=== PATIENT | male | born 1950 | race Caucasian/White ===

== ENCOUNTER → 2017-02-12 | Outpatient (CLI) | payer MEDICARE ==
--- NOTE | 2017-02-12 08:50 | US ---
EXAMINATION TYPE: US duplex aorta DATE OF EXAM: 02/12/2017 8:29 AM COMPARISON: NONE CLINICAL HISTORY: Z13.9 Screening for Disorder. Medicare AAA screening EXAM MEASUREMENTS: Abdominal Aorta: Proximal: 2.4cm by 2.0 cm transversely Mid: 1.8cm by 2.0 cm transversely Distal: 1.4cm by 1.9 cm transversely Bifurcation: Right 0.9cm Left 1.3cm Calcified vessel, especially distally and iliacs Aorta is visualized through the iliac bifurcation. Calcified plaque is seen along its course. No aneu rysmal change is evident. IMPRESSION: No greater than 3 cm abdominal aortic aneurysm identified.
== END | disposition home or self-care (01) ==
LOC: RADUSWWP 08:05
PROVIDERS: ATTEND Family Medicine
DX: I71.4 Abdominal aortic aneurysm, without rupture (principal)
CPT/HCPCS: 93979

== ENCOUNTER → 2017-03-18 | Outpatient (CLI) | payer MEDICARE ==
[2017-03-18 11:16] LABS: Bilirubin, Delta 0.3 mg/dL (0.0-0.2); Total Bilirubin 0.4 mg/dL (0.2-1.3); Total Protein 7.5 g/dL (6.3-8.2)
== END | disposition home or self-care (01) ==
LOC: LABWHC1 10:02
PROVIDERS: ATTEND Internal Medicine Cardiovascular Disease
DX: E78.2 Mixed hyperlipidemia (principal)
CPT/HCPCS: 36415; 80061; 80076

== ENCOUNTER → 2017-12-06 | Outpatient (CLI) | payer MEDICARE ==
[2017-12-06 11:29] LABS: HCT 47.4 % (39.0-53.0); MCH 28.4 pg (25.0-35.0); MCHC 31.5 g/dL (31.0-37.0); MCV 89.9 fL (80.0-100.0); Platelet Count 192 k/uL (150-450); RBC 5.27 m/uL (4.30-5.90); RDW 13.4 % (11.5-15.5); WBC 8.6 k/uL (3.8-10.6)
[2017-12-06 11:42] LABS: Anion Gap 12 mmol/L; Blood Urea Nitrogen 18 mg/dL (9-20); Calcium 10.3 mg/dL (8.4-10.2); Carbon Dioxide 33 mmol/L (22-30); Chloride 97 mmol/L (98-107); Glucose 131 mg/dL (74-99); Sodium 142 mmol/L (137-145)
[2017-12-06 12:03] LABS: Partial Thromboplastin Time 23.7 sec (22.0-30.0); Prothrombin Time 10.3 sec (9.0-12.0)
== END | disposition home or self-care (01) ==
LOC: LABWHC1 10:59
PROVIDERS: ATTEND Internal Medicine Cardiovascular Disease
DX: Z01.812 Encounter for preprocedural laboratory examination (principal); I25.5 Ischemic cardiomyopathy; I25.10 Atherosclerotic heart disease of native coronary artery without angina pectoris
CPT/HCPCS: 36415; 80048; 85027; 85610; 85730

== ENCOUNTER → 2018-03-13 | Outpatient (CLI) | payer MEDICARE ==
[2018-03-13 10:20] LABS: Basophils # (A) 0.1 k/uL (0-0.2); Basophils % (A) 1 %; Eosinophils # (A) 0.1 k/uL (0-0.7); Eosinophils % (A) 1 %; HGB 14.6 gm/dL (13.0-17.5); Lymphocytes # (A) 3.1 k/uL (1.0-4.8); Lymphocytes % (A) 33 %; MCH 29.8 pg (25.0-35.0); MCV 87.8 fL (80.0-100.0); Mean Platelet Volume 6.8; Monocytes # (A) 0.6 k/uL (0-1.0); Monocytes % (A) 7 %; Neutrophils # (A) 5.4 k/uL (1.3-7.7); Neutrophils % (A) 56 %; Platelet Count 175 k/uL (150-450); RDW 14.5 % (11.5-15.5); WBC 9.6 k/uL (3.8-10.6)
[2018-03-13 10:50] LABS: Albumin 4.4 g/dL (3.5-5.0); Calcium 9.6 mg/dL (8.4-10.2); Potassium 5.1 mmol/L (3.5-5.1); Total Bilirubin 0.3 mg/dL (0.2-1.3); Total Protein 6.9 g/dL (6.3-8.2)
== END | disposition home or self-care (01) ==
LOC: LABWHC1 09:26
PROVIDERS: ATTEND Internal Medicine Cardiovascular Disease
DX: E78.2 Mixed hyperlipidemia (principal); I25.10 Atherosclerotic heart disease of native coronary artery without angina pectoris; I25.5 Ischemic cardiomyopathy
CPT/HCPCS: 36415; 80053; 80061; 83880; 84443; 85025

== ENCOUNTER → 2018-04-01 | Outpatient (CLI) | payer MEDICARE ==
[2018-04-01 12:23] LABS: HCT 45.8 % (39.0-53.0); MCH 29.6 pg (25.0-35.0); MCHC 32.7 g/dL (31.0-37.0); MCV 90.6 fL (80.0-100.0); Mean Platelet Volume 7.1; Platelet Count 209 k/uL (150-450); RBC 5.06 m/uL (4.30-5.90); RDW 14.6 % (11.5-15.5); WBC 9.2 k/uL (3.8-10.6)
[2018-04-01 12:26] LABS: INR 1.1 (<1.2); Prothrombin Time 10.7 sec (9.0-12.0)
[2018-04-01 12:37] LABS: Anion Gap 15 mmol/L; Blood Urea Nitrogen 16 mg/dL (9-20); Calcium 9.7 mg/dL (8.4-10.2); Carbon Dioxide 29 mmol/L (22-30); Chloride 97 mmol/L (98-107); Glucose 109 mg/dL (74-99); Potassium 4.8 mmol/L (3.5-5.1); Sodium 141 mmol/L (137-145)
== END | disposition home or self-care (01) ==
LOC: LABWHC1 11:42
PROVIDERS: ATTEND Nurse Practitioner Acute Care
DX: I42.0 Dilated cardiomyopathy (principal)
CPT/HCPCS: 36415; 80048; 85027; 85610

== ENCOUNTER → 2018-04-10 | Outpatient (CLI) | payer MEDICARE ==
[2018-04-10 13:36] LABS: T4, Free (Free Thyroxine) 1.08 ng/dL (0.78-2.19)
== END | disposition home or self-care (01) ==
LOC: LABWHC1 11:50
PROVIDERS: ATTEND Family Medicine
DX: E03.9 Hypothyroidism, unspecified (principal)
CPT/HCPCS: 36415; 84439; 84443

== ENCOUNTER → 2018-05-29 | Outpatient (CLI) | payer MEDICARE ==
[2018-05-29 13:36] LABS: T4, Free (Free Thyroxine) 0.96 ng/dL (0.78-2.19)
== END | disposition home or self-care (01) ==
LOC: LABWHC1 12:47
PROVIDERS: ATTEND Family Medicine
DX: E03.9 Hypothyroidism, unspecified (principal)
CPT/HCPCS: 36415; 84439; 84443

== ENCOUNTER 2018-07-22 08:37 | Day surgery (SDC) | payer MEDICARE ==
[2018-07-16 14:03] VITALS: BMI 32.9
[2018-07-22] MEDS ORDERED: LIDOCAINE 1% 20 ML VIAL (10MG/ML) FOR IV START INTRADERMA PRN (09:04)
[2018-07-22] MEDS ORDERED: ONDANSETRON 4 MG/2 ML VIAL IVP ONE (09:04)
[2018-07-22] MEDS ORDERED: DEXAMETHASONE SOD PHOSPHATE 10 MG/ML 1 ML VIAL IV ONE (09:04)
[2018-07-22] MEDS ORDERED: MORPHINE SULFATE 2 MG/ML SYRINGE IV PRN (09:04)
[2018-07-22] MEDS ORDERED: LACTATED RINGERS 1,000 ML IV SCH (09:15)
[2018-07-22] MEDS: CYCLOPENTOLATE 1% OPHTH SOLN 2 ML BTL OP ONE ×3 (10:00→10:28)
[2018-07-22] MEDS: FLURBIPROFEN 0.03% OPHTH DROPS 2.5 ML BTL OP ONE ×3 (10:03→10:31)
[2018-07-22] MEDS: PHENYLEPHRINE 10% OPHTH DROPS 5 ML BTL OP ONE ×3 (10:16→10:36)
[2018-07-22 10:21] VITALS: RESP 16; TEMP 97.2
[2018-07-22] MEDS ORDERED: LACTATED RINGERS 1,000 ML IV ONE (10:21)
[2018-07-22 10:23] LABS: Glucose,Whole Blood 99 mg/dL (75-99)
[2018-07-22] MEDS ORDERED: PROPOFOL 10 MG/ML 20 ML VIAL IV ONE (10:49)
[2018-07-22] MEDS ORDERED: BALANCED SALT IRRIG SOLN COMB2 15 ML IRRIG.SOLN INTRAOCULA ONE (10:55)
[2018-07-22] MEDS ORDERED: HYALURONATE SODIUM INTRAOCULAR 1 EACH SYRINGE (10MG/ML) INTRAOCULA ONE (10:55)
[2018-07-22] MEDS ORDERED: EPINEPHrine (PF) 0.5 ML in BALANCED SALT IRRIG SOLN COMB2 500 ML IRRIGATION ONE (10:56)
--- NOTE | 2018-07-22 11:14 | P.OP ---
Date of Procedure: 07/22/18 Procedure(s) Performed: PREOPERATIVE DIAGNOSIS: Cataract, right eye. POSTOPERATIVE DIAGNOSIS: Cataract, right eye. OPERATION: Phacoemulsification cataract, right eye. DESCRIPTION OF PROCEDURE: The patient was taken to the preoperative holding area. Intravenous Propofol was given so as to bring about adequate sedation. The following mixture was given for local anesthesia: 5 mL of 2% lidocaine, 5 mL of 0.75% Marcaine, and 1 mL of Wydase. Approximately 4 mL was injected in the retrobulbar space of the surgical eye. Additional 1 mL was then directed to the temporal area of the surgical eye. This was performed to allow adequate neurological block of the facial muscles. The patient was revived and then taken into the operative room. The patient was prepped and draped in the usual sterile manner for the operative eye. A lid speculum was put into position. The conjunctiva was resected back from the limbus in the 12 o'clock position. Bleeding was controlled with electrocautery. A #69 blade was then used and a half-thickness scleral incision approximately 1-mm posterior to the limbus was made on bare sclera. This was shelved in the clear cornea using a crescent knife. Next a 15-degree blade was used to make a stab incision at the 3 o' clock position at the corneolimbal interface. Keratome blade was then used and the superior wound was extended into the anterior chamber. Viscoelastic was injected into the anterior chamber and to maintain its form. Next, a cystotome was used and a continuous anterior capsulotomy was made without difficulty. Hydrodissection using a blunt cannula and BSS was performed. Phaco probe was then employed and a groove extending from 12 to 6 o'clock in the lens was created. A Vikram wand was used through the stab incision so as to perform a divide and conquer technique. Next an irrigation aspiration probe was utilized and any residual cortex was removed from the eye. Again, viscoelastic was injected into the anterior chamber. An Uriel posterior chamber lens implant was placed in the cartridge and injected into the anterior chamber without difficulty. The [employer]res [employer] hook was utilized to spin the lens into position and this was again performed without any difficulty. The irrigation and aspiration probe was again employed and any residual viscoelastic was removed from the eye. Then BSS was injected into the limbal stab incision and the anterior chamber re-inflated. The conjunctiva was reapproximated using electrocautery. One drop of 0.25% Timoptic was placed over the corneal along with TobraDex ophthalmic ointment. Two sterile patches and a Carlson eye shield were taped into position. The patient was transported to the recovery room in stable condition. Pathology: none sent Condition: stable Disposition: same day
[2018-07-22 11:32] LABS: Glucose,Whole Blood 99 mg/dL (75-99)
[2018-07-22 11:33] VITALS: BP 121/71; PULSE 62
[2018-07-22] MEDS ORDERED: TIMOLOL 0.5% OPHTH DROPS 5 ML BTL OP ONE (23:00)
[2018-07-22] MEDS ORDERED: GENTAMICIN/PREDNISOL AC OPHTH OINT 3.5GM OPHTHALMIC ONE (23:00)
[2018-07-22] MEDS ORDERED: BUPIVACAINE (PF) 0.75% 5 ML, HYALURONIDASE, HUMAN RECOMB 150 UNIT, LIDOCAINE 2% (PF) 10... MISCELLANE ONE ×3 (23:00)
== END 2018-07-22 11:48 | disposition home or self-care (01) ==
LOC: OR 08:37
PROVIDERS: ATTEND Ophthalmology
DX: H25.13 Age-related nuclear cataract, bilateral (principal); E11.9 Type 2 diabetes mellitus without complications; H04.129 Dry eye syndrome of unspecified lacrimal gland; I11.0 Hypertensive heart disease with heart failure; I50.9 Heart failure, unspecified; N40.0 Benign prostatic hyperplasia without lower urinary tract symptoms; I49.9 Cardiac arrhythmia, unspecified; J44.9 Chronic obstructive pulmonary disease, unspecified; E07.9 Disorder of thyroid, unspecified; I69.351 Hemiplegia and hemiparesis following cerebral infarction affecting right dominant side; Z95.5 Presence of coronary angioplasty implant and graft; Z95.810 Presence of automatic (implantable) cardiac defibrillator; F17.200 Nicotine dependence, unspecified, uncomplicated; Z79.890 Hormone replacement therapy; Z79.02 Long term (current) use of antithrombotics/antiplatelets; Z79.899 Other long term (current) drug therapy; Z91.041 Radiographic dye allergy status
CPT/HCPCS: 66984; V2632; J3470; J1100; J2001; J2405; J0171; J2704

== ENCOUNTER → 2018-08-08 | Outpatient (CLI) | payer MEDICARE ==
[2018-08-08 11:26] LABS: HCT 40.8 % (39.0-53.0); HGB 14.1 gm/dL (13.0-17.5); MCH 29.8 pg (25.0-35.0); MCHC 34.6 g/dL (31.0-37.0); MCV 86.3 fL (80.0-100.0); Mean Platelet Volume 7.5; Platelet Count 187 k/uL (150-450); RBC 4.73 m/uL (4.30-5.90); WBC 8.4 k/uL (3.8-10.6)
[2018-08-08 11:28] LABS: Prothrombin Time 10.1 sec (9.0-12.0)
[2018-08-08 11:57] LABS: ALT 34 U/L (21-72); AST 22 U/L (17-59); Albumin 4.7 g/dL (3.5-5.0); Alkaline Phosphatase 47 U/L (38-126); Anion Gap 12 mmol/L; Bilirubin, Delta 0.3 mg/dL (0.0-0.2); Bilirubin,Unconjugated 0.2 mg/dL (0.0-1.1); Blood Urea Nitrogen 12 mg/dL (9-20); C Reactive Protein <5.0 mg/L (<10.0); Calcium 9.9 mg/dL (8.4-10.2); Carbon Dioxide 30 mmol/L (22-30); Chloride 96 mmol/L (98-107); Cholesterol 148 mg/dL (<200); Glucose 106 mg/dL (74-99); HDL Cholesterol 47 mg/dL (40-60); LDL Cholesterol,Calculated 44 mg/dL (0-99); Sodium 138 mmol/L (137-145); Total Bilirubin 0.5 mg/dL (0.2-1.3); Total Protein 7.6 g/dL (6.3-8.2); Triglycerides 285 mg/dL (<150)
== END ==
LOC: LABWHC1 10:29
PROVIDERS: ATTEND Internal Medicine Cardiovascular Disease
DX: E78.2 Mixed hyperlipidemia (principal); I11.9 Hypertensive heart disease without heart failure; I42.0 Dilated cardiomyopathy
CPT/HCPCS: 36415; 80053; 80061; 82248; 83880; 84443; 85027; 85610; 86140

== ENCOUNTER → 2019-04-13 | Outpatient (CLI) | payer MEDICARE ==
[2019-04-13 09:51] LABS: Basophils # (A) 0.1 k/uL (0-0.2); Basophils % (A) 0 %; Eosinophils # (A) 0.1 k/uL (0-0.7); Eosinophils % (A) 1 %; HCT 43.6 % (39.0-53.0); HGB 14.4 gm/dL (13.0-17.5); Lymphocytes # (A) 3.9 k/uL (1.0-4.8); Lymphocytes % (A) 28 %; MCHC 33.1 g/dL (31.0-37.0); MCV 87.7 fL (80.0-100.0); Mean Platelet Volume 7.4; Monocytes # (A) 0.6 k/uL (0-1.0); Monocytes % (A) 4 %; Neutrophils # (A) 8.8 k/uL (1.3-7.7); Neutrophils % (A) 63 %; Platelet Count 222 k/uL (150-450); RBC 4.98 m/uL (4.30-5.90); RDW 13.4 % (11.5-15.5); WBC 13.8 k/uL (3.8-10.6)
[2019-04-13 16:55] LABS: T4, Free (Free Thyroxine) 1.3 ng/dL (0.80-1.80)
[2019-04-13 18:16] LABS: African American GFR (CKD) 71.1 (60.0-200.0); Albumin 5.1 g/dL (3.80-4.90); Albumin/Globulin Ratio 2.83 (1.60-3.17); Anion Gap 10.3 mmol/L (4.00-12.00); Calcium 10.2 mg/dL (8.7-10.3); Carbon Dioxide 32.7 mmol/L (21.6-31.8); Globulin 1.8 g/dL (1.6-3.3); LDL Cholesterol,Calculated 59.4 mg/dL (0.0-131.0); Potassium 4.6 mmol/L (3.5-5.5); Total Bilirubin 0.6 mg/dL (0.2-1.2); Total Protein 6.9 g/dL (6.2-8.2); VLDL Calculation 35.6 mg/dL (5.00-40.00)
== END | disposition home or self-care (01) ==
LOC: LABWHC1 09:34
PROVIDERS: ATTEND Nurse Practitioner Adult Health
DX: E78.5 Hyperlipidemia, unspecified (principal); E03.9 Hypothyroidism, unspecified; I10 Essential (primary) hypertension; I42.9 Cardiomyopathy, unspecified
CPT/HCPCS: 36415; 80053; 80061; 82550; 83880; 84439; 84443; 85025

== ENCOUNTER → 2019-05-22 | Outpatient (CLI) | payer MEDICARE ==
--- NOTE | 2019-05-22 20:48 | XR ---
AP pelvis and right hip HISTORY: Pain in right hip, trauma one month prior Frontal view of the pelvis and 2 views of the right hip are submitted. Bone mineralization, joint spaces and alignment are maintained. Degenerative disc changes are present in the lumbar spine. There are vascular calcifications within the pelvis. IMPRESSION: No fracture or dislocation. Hip MRI may be of benefit.
== END | disposition home or self-care (01) ==
LOC: RADXRMAIN 17:52
PROVIDERS: ATTEND Nurse Practitioner Adult Health
DX: M25.551 Pain in right hip (principal)
CPT/HCPCS: 72170; 73502

== ENCOUNTER → 2019-06-25 | Outpatient (CLI) | payer MEDICARE ==
--- NOTE | 2019-06-25 13:51 | CT ---
EXAMINATION TYPE: CT lumbar spine wo con DATE OF EXAM: 06/25/2019 1:20 PM COMPARISON: None. 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 Spinal stenosis all per order. Spondylolisthesis. Back pain into right thigh per patient. CT DLP: 926.7 mGycm Automated exposure control for dose reduction was used. Unenhanced CT of the lumbar spine was performed. Bone and soft tissue window settings are submitted as well as coronal and sagittal reconstructions. There are 5 lumbar-type vertebra. Mild to moderate disc space narrowing L4-L5 level with vacuum disc phenomenon. Posterior disc herniation L4-L5 level seen on sagittal image 27 minimally effaces the ant erior thecal sac. Mild to moderate multilevel anterior and lateral spurring. Review of axial images shows mild broad disc bulges mildly effaces the anterior thecal sac at L2-L3 i s slightly more prominent at L3-L4 level on axial image 43. There is asymmetric mild left-sided neura l foraminal narrowing at L3-L4 level. Axial images at the L4-L5 level mild facet degenerative changes bilaterally. There is mild bilateral neural foraminal narrowing. Axial images at L5-S1 level shows moderate facet degenerative changes bilaterally. Spinal canal is pr eserved. There are bilateral pars defect L5 level without significant spondylolisthesis. Moderate eligio cified plaque of the aorta extends into branch vessels. Normal-appearing appendix incidentally seen f rom cecum and the right lower quadrant. Cannot exclude small nonobstructing left renal calculi, corre late clinically for reference coronal image 23. IMPRESSION: Bilateral pars defect L5 level without significant spondylolisthesis. Multilevel degenera tive changes are seen as detailed above.
== END | disposition home or self-care (01) ==
LOC: RADCTMAIN 12:59
PROVIDERS: ATTEND Physical Medicine & Rehabilitation
DX: M48.062 Spinal stenosis, lumbar region with neurogenic claudication (principal); M43.16 Spondylolisthesis, lumbar region; M47.816 Spondylosis without myelopathy or radiculopathy, lumbar region; M47.817 Spondylosis without myelopathy or radiculopathy, lumbosacral region
CPT/HCPCS: 72131

== ENCOUNTER → 2019-07-13 | Outpatient (CLI) | payer MEDICARE ==
[2019-07-13 11:16] LABS: Basophils # (A) 0.1 k/uL (0-0.2); Basophils % (A) 1 %; Eosinophils % (A) 0 %; HCT 42.7 % (39.0-53.0); HGB 14.4 gm/dL (13.0-17.5); Lymphocytes # (A) 2.4 k/uL (1.0-4.8); Lymphocytes % (A) 19 %; MCH 29.4 pg (25.0-35.0); MCHC 33.6 g/dL (31.0-37.0); MCV 87.5 fL (80.0-100.0); Mean Platelet Volume 7.1; Monocytes # (A) 0.8 k/uL (0-1.0); Monocytes % (A) 6 %; Neutrophils # (A) 8.9 k/uL (1.3-7.7); Neutrophils % (A) 71 %; Platelet Count 231 k/uL (150-450); RBC 4.88 m/uL (4.30-5.90); RDW 14.1 % (11.5-15.5); WBC 12.5 k/uL (3.8-10.6)
[2019-07-13 16:23] LABS: ALT 23 U/L (10-49); AST 25 U/L (14-35); African American GFR (CKD) 100.6 (60.0-200.0); Albumin/Globulin Ratio 2.57 (1.60-3.17); Alkaline Phosphatase 78 U/L (41-126); Bilirubin, Conjugated <0.20 mg/dL (0.20-0.40); Calcium 10.4 mg/dL (8.7-10.3); Carbon Dioxide 29.8 mmol/L (21.6-31.8); Chloride 98 mmol/L (96-109); Chol/HDL Ratio 3.31; Cholesterol 172 mg/dL (0-200); Globulin 2.1 g/dL (1.6-3.3); Glucose 119 mg/dL (70-110); LDL Cholesterol,Calculated 73.4 mg/dL (0.0-131.0); Potassium 4.7 mmol/L (3.5-5.5); Sodium 140 mmol/L (135-145); Total Bilirubin 0.5 mg/dL (0.2-1.2); Total Protein 7.5 g/dL (6.2-8.2)
== END | disposition home or self-care (01) ==
LOC: LABWHC1 10:18
PROVIDERS: ATTEND Internal Medicine Cardiovascular Disease
DX: E78.2 Mixed hyperlipidemia (principal); I25.10 Atherosclerotic heart disease of native coronary artery without angina pectoris; I50.42 Chronic combined systolic (congestive) and diastolic (congestive) heart failure; I11.0 Hypertensive heart disease with heart failure
CPT/HCPCS: 36415; 80053; 80061; 82248; 83880; 84443; 85025

== ENCOUNTER → 2019-07-31 | Outpatient (CLI) | payer MEDICARE ==
--- NOTE | 2019-07-31 11:47 | XR ---
EXAMINATION TYPE: XR chest 2V DATE OF EXAM: 07/31/2019 COMPARISON: 02/07/2015 INDICATION: Syncope chest pain her the TECHNIQUE: Frontal and lateral views of the chest are obtained. FINDINGS: The heart size is normal. The pulmonary vasculature is normal. The lungs are clear. Electronic device overlies left chest. 3 leads are present. No pneumothorax is evident. IMPRESSION: 1. No acute pulmonary process.
[2019-07-31 12:13] LABS: HCT 37.7 % (39.0-53.0); HGB 13.1 gm/dL (13.0-17.5); MCH 29.5 pg (25.0-35.0); MCHC 34.6 g/dL (31.0-37.0); MCV 85.3 fL (80.0-100.0); Mean Platelet Volume 6.7; Platelet Count 231 k/uL (150-450); RBC 4.43 m/uL (4.30-5.90); RDW 13.4 % (11.5-15.5); WBC 10.1 k/uL (3.8-10.6)
[2019-07-31 12:29] LABS: ALT 22 U/L (21-72); AST 21 U/L (17-59); African American GFR (CKD) >90 (>60 ml/min/1.73 sqM); Albumin 4.9 g/dL (3.5-5.0); Alkaline Phosphatase 52 U/L (38-126); Anion Gap 11 mmol/L; Blood Urea Nitrogen 11 mg/dL (9-20); Calcium 10.1 mg/dL (8.4-10.2); Carbon Dioxide 32 mmol/L (22-30); Chloride 96 mmol/L (98-107); Glucose 100 mg/dL (74-99); Potassium 4.1 mmol/L (3.5-5.1); Sodium 139 mmol/L (137-145); Total Bilirubin 0.5 mg/dL (0.2-1.3); Total Protein 7.7 g/dL (6.3-8.2)
== END | disposition home or self-care (01) ==
LOC: RADXRMAIN 11:27
PROVIDERS: ATTEND Internal Medicine Cardiovascular Disease
DX: E05.80 Other thyrotoxicosis without thyrotoxic crisis or storm (principal); R07.9 Chest pain, unspecified; R55 Syncope and collapse; R07.89 Other chest pain; Z95.0 Presence of cardiac pacemaker; Z91.041 Radiographic dye allergy status
CPT/HCPCS: 36415; 71046; 80053; 83880; 84443; 85027; 86141

== ENCOUNTER → 2020-01-06 | Outpatient (CLI) | payer MEDICARE ==
[2020-01-06 12:17] LABS: HCT 44.2 % (39.0-53.0); HGB 14.4 gm/dL (13.0-17.5); MCH 29.2 pg (25.0-35.0); MCHC 32.4 g/dL (31.0-37.0); Mean Platelet Volume 7.5; Platelet Count 241 k/uL (150-450); RBC 4.92 m/uL (4.30-5.90); RDW 13.5 % (11.5-15.5); WBC 8.1 k/uL (3.8-10.6)
[2020-01-06 18:14] LABS: ALT 22 U/L (10-49); AST 19 U/L (14-35); Albumin/Globulin Ratio 2.43 (1.60-3.17); Alkaline Phosphatase 59 U/L (41-126); Bilirubin, Conjugated <0.20 mg/dL (0.20-0.40); Calcium 9.8 mg/dL (8.7-10.3); Carbon Dioxide 30.6 mmol/L (21.6-31.8); Chloride 98 mmol/L (96-109); Chol/HDL Ratio 3.79; Cholesterol 163 mg/dL (0-200); Globulin 2.1 g/dL (1.6-3.3); Glucose 128 mg/dL (70-110); LDL Cholesterol,Calculated 62.4 mg/dL (0.0-131.0); Non-African American GFR(CKD) 75.9 (60.0-200.0); Potassium 4.5 mmol/L (3.5-5.5); Sodium 138 mmol/L (135-145); Total Bilirubin 0.4 mg/dL (0.3-1.2); Total Protein 7.2 g/dL (6.2-8.2)
[2020-01-06 19:20] LABS: Hemoglobin A1C 6.4 % (4.0-6.0)
== END | disposition home or self-care (01) ==
LOC: LABWHC1 10:56
PROVIDERS: ATTEND Internal Medicine Cardiovascular Disease
DX: E78.2 Mixed hyperlipidemia (principal); E11.8 Type 2 diabetes mellitus with unspecified complications; I50.42 Chronic combined systolic (congestive) and diastolic (congestive) heart failure; I11.0 Hypertensive heart disease with heart failure
CPT/HCPCS: 36415; 80053; 80061; 82248; 83036; 83880; 84443; 85027; 86141

== ENCOUNTER → 2020-06-15 | Outpatient (CLI) | payer MEDICARE ==
--- NOTE | 2020-06-15 10:24 | CT ---
EXAMINATION TYPE: CT chest wo con DATE OF EXAM: 06/15/2020 COMPARISON: Prior CT 11/15/2015 HISTORY: lung nodule CT DLP: 542.3 mGycm. Automated Exposure Control for Dose Reduction was Utilized. TECHNIQUE: CT scan of the thorax is performed without IV contrast. FINDINGS: LUNGS: The lungs are stable, there is no concerning parenchymal mass or nodule identified, 3-4 mm lef t lower lobe and left upper lobe lung nodules unchanged. There is no pleural effusion or pneumothor ax seen. The tracheobronchial tree is patent. MEDIASTINUM: Lack of IV contrast is noted to limit evaluation for mediastinal and especially hilar ad enopathy. There are no definitive greater than 1 cm hilar or mediastinal lymph nodes. No cardiomega ly or pericardial effusion is seen. There are extensive coronary artery calcifications. OTHER: Intracardiac defibrillator leads are noted. IMPRESSION: Benign lung nodules. Noncontrast exam.
== END | disposition home or self-care (01) ==
LOC: RADCTMAIN 07:09
PROVIDERS: ATTEND Family Medicine
DX: R91.8 Other nonspecific abnormal finding of lung field (principal)
CPT/HCPCS: 71250

== ENCOUNTER → 2021-01-13 | Outpatient (CLI) | payer MEDICARE ==
[2021-01-13 15:25] LABS: HCT 42.2 % (39.6-50.0); HGB 14.1 g/dL (13.0-17.0); MCH 29.6 pg (27.0-32.0); MCHC 33.4 g/dL (32.0-37.0); MCV 88.5 fL (80.0-97.0); Mean Platelet Volume 10.9 fL (9.5-12.2); Platelet Count 236 X 10*3/uL (140-440); RBC 4.77 X 10*6/uL (4.40-5.60); RDW 13.5 % (11.5-14.5); WBC 9.35 X 10*3/uL (4.50-10.00)
[2021-01-13 18:40] LABS: ALT 30 U/L (10-49); AST 25 U/L (14-35); African American GFR (CKD) 87.4 (60.0-200.0); Alkaline Phosphatase 56 U/L (41-126); C Reactive Protein <0.4 mg/dL (0.0-0.8); Calcium 10.2 mg/dL (8.7-10.3); Carbon Dioxide 27.6 mmol/L (21.6-31.8); Chloride 96 mmol/L (96-109); Chol/HDL Ratio 4.06; Cholesterol 142 mg/dL (0-200); Glucose 122 mg/dL (70-110); LDL Cholesterol,Calculated 56.4 mg/dL (0.0-131.0); Non-African American GFR(CKD) 75.4 (60.0-200.0); Potassium 4.1 mmol/L (3.5-5.5); Sodium 135 mmol/L (135-145); Total Bilirubin 0.4 mg/dL (0.3-1.2); Total Protein 7.2 g/dL (6.2-8.2)
== END ==
LOC: LABWHC1 10:19
PROVIDERS: ATTEND Internal Medicine Cardiovascular Disease
DX: E78.2 Mixed hyperlipidemia (principal); I35.1 Nonrheumatic aortic (valve) insufficiency; I50.42 Chronic combined systolic (congestive) and diastolic (congestive) heart failure; R06.02 Shortness of breath
CPT/HCPCS: 36415; 80053; 80061; 82248; 83880; 84443; 85027; 86140

== ENCOUNTER 2021-05-24 13:21 | Inpatient (IN) | payer MEDICARE ==
[2021-05-24 13:28] LABS: Glucose,Whole Blood 117 mg/dL (75-99)
[2021-05-24] MEDS ORDERED: diphenhydrAMINE 50 MG/ML 1 ML VIAL IVP STA (13:45)
[2021-05-24] MEDS ORDERED: methylPREDNISolone SOD SUCCI 125 MG/2 ML VIAL IV STA (13:45)
[2021-05-24] MEDS ORDERED: FAMOTIDINE 20 MG/2 ML VIAL IV STA (13:45)
--- NOTE | 2021-05-24 13:49 | ED ---
General Adult HPI - General Chief complaint: Neuro Symptoms/Deficit Stated complaint: Stroke Symptoms/Numbness Time Seen by Provider: 05/24/21 13:39 Source: patient, RN notes reviewed Mode of arrival: wheelchair Limitations: no limitations - History of Present Illness Initial comments: Patient is a pleasant 70-year-old male presenting to the emergency Department with right-sided weakness. Patient woke at 10 AM with the symptoms that have been persistent since that time. Patient was awake around 3 AM and was symptom- free at that time. Patient does have right facial weakness and expressive aphasia, slurred speech which is chronic and unchanged. Patient has paresthesias and mild weakness of his right arm and right leg which is new. No confusion. No headache. - Related Data Home Medications Medication Instructions Recorded Confirmed Atorvastatin [Lipitor] 40 mg PO HS 07/09/14 07/22/18 Carvedilol 6.25 mg PO BID 07/09/14 07/22/18 Clopidogrel Bisulfate [Clopidogrel] 75 mg PO HS 07/09/14 07/22/18 Levothyroxine Sodium [Synthroid] 112 mcg PO QAM 07/09/14 07/22/18 Loratadine [Claritin] 10 mg PO DAILY 07/09/14 07/22/18 Tamsulosin HCl 0.4 mg PO HS 07/09/14 07/16/18 clonazePAM [Clonazepam] 1 mg PO DAILY 07/09/14 07/22/18 Aspirin 81 mg PO DAILY 02/07/15 07/22/18 Fluticasone Propionate [Flonase 2 spray EA NOSTRIL HS 02/07/15 07/22/18 Allergy Relief] SUMAtriptan succinate [Imitrex] 50 mg PO ONCE PRN 11/25/15 07/22/18 Albuterol Nebulized [Ventolin 2.5 mg INHALATION Q6H PRN 07/16/18 07/22/18 Nebulized] Budesonide/Formoterol Fumarate 2 puff INHALATION BID 07/16/18 07/22/18 [Symbicort 160-4.5 Mcg Inhaler] Losartan [Cozaar] 50 mg PO DAILY 07/16/18 07/22/18 Micro K 10 meq PO DAILY 07/16/18 Torsemide [Demadex] 20 mg PO DAILY 07/16/18 07/22/18 Venlafaxine HCl [Effexor] 100 mg PO HS 07/16/18 07/22/18 Venlafaxine HCl [Effexor] 150 mg PO QAM 07/16/18 07/22/18 metFORMIN HCL [Glucophage] 1,000 mg PO BID 07/16/18 07/22/18 Allergies Allergy/AdvReac Type Severity Reaction Status Date / Time Iodinated Contrast Media Allergy Dyspnea Verified 05/24/21 13:26 [Iodinated Contrast Media - IV Dye] iodine Allergy Dyspnea Verified 05/24/21 13:26 Review of Systems ROS Statement: Those systems with pertinent positive or pertinent negative responses have been documented in the HPI. ROS Other: All systems not noted in ROS Statement are negative. Constitutional: Denies: fever Eyes: Denies: eye pain ENT: Denies: ear pain Respiratory: Denies: as per HPI Cardiovascular: Denies: chest pain Endocrine: Denies: fatigue Gastrointestinal: Denies: abdominal pain Genitourinary: Denies: dysuria Skin: Denies: rash Neurological: Reports: weakness, paresthesias. Denies: headache, confusion Past Medical History Past Medical History: Heart Failure, COPD, CVA/TIA, Diabetes Mellitus, Eye Disorder, Hyperlipidemia, Hypertension, Myocardial Infarction ([place]), Pneumonia, P rostate Disorder, Thyroid Disorder Additional Past Medical History / Comment(s): JUNI CATARACTS, CVA X3-SPEECH AFFECTED,WEAKNESS RT ARM AND RT LEG, Last Myocardial Infarction Date:: UNK History of Any Multi-Drug Resistant Organisms: None Reported Past Surgical History: AICD, Heart Catheterization With Stent Additional Past Surgical History / Comment(s): HEART STENT X1,PARTIAL THYROIDECTOMY Past Anesthesia/Blood Transfusion Reactions: No Reported Reaction Additional Past Anesthesia/Blood Transfusion Reaction / Comment(s): NEVER HAD A BLOOD TRANSFUSION Date of Last Stent Placement:: 07/2014 Type of Cardiac Device: AICD Device Placement Date:: 04/2018 Past Psychological History: Depression Smoking Status: Current some day smoker Past Alcohol Use History: None Reported Past Drug Use History: None Reported - Past Family History Mother Family Medical History: Renal Disease Father Family Medical History: Myocardial Infarction ([place]) Brother(s) Family Medical History: CVA/TIA, Hypertension Sister(s) Additional Family Medical History / Comment(s): CABG General Exam Limitations: no limitations General appearance: alert, in no apparent distress Head exam: Present: atraumatic, normocephalic Eye exam: Present: normal appearance, PERRL, EOMI ENT exam: Present: normal oropharynx Neck exam: Present: normal inspection Respiratory exam: Present: normal lung sounds bilaterally Cardiovascular Exam: Present: regular rate, normal rhythm GI/Abdominal exam: Present: soft. Absent: tenderness Extremities exam: Present: normal inspection Neurological exam: Present: alert Expanded Neurological exam: Present: other (Mild slurred speech which patient states is chronic.) Speech: Present: fluid speech Cranial nerves: EOM's Intact: Normal, Facial Sensation: Normal, Facial Palsy with Forehead Movement: Abnormal Right (Patient states chronic) Sensory exam: Upper Extremity Light Touch: Abnormal Right, Lower Extremity Light Touch: Normal Motor strength exam: RUE: 4, LUE: 5, RLE: 4, LLE: 5 Eye Response: (4) open spontaneously Motor Response: (6) obeys commands Verbal Response: (5) oriented Psychiatric exam: Present: normal affect, normal mood Skin exam: Present: normal color Course Vital Signs 05/24/21 13:26 Temperature 98.3 F Pulse Rate 95 Respiratory 18 Rate Blood Pressure 153/87 O2 Sat by Pulse 99 Oximetry EKG Findings - EKG Comments: EKG Findings:: AL 122. QRS 170. QT 428. QTC 515. Right bundle branch block. Superior axis. Wide QRS complex. No acute ST change. Septal Q waves. Paced rhythm. Rate 87. Medical Decision Making - Medical Decision Making Patient reevaluated and updated. Case discussed with Dr. aGlaviz, who will admit covering Dr. Bloom. - Lab Data Result diagrams: 05/24/21 13:46 05/24/21 13:46 Lab Results 05/24/21 05/24/21 05/24/21 Range/Units 13:26 13:46 13:46 WBC 9.7 (3.8-10.6) k/uL RBC 4.74 (4.30-5.90) m/uL Hgb 14.2 (13.0-17.5) gm/dL Hct 43.1 (39.0-53.0) % MCV 91.0 (80.0-100.0) fL MCH 30.0 (25.0-35.0) pg MCHC 33.0 (31.0-37.0) g/dL RDW 14.7 (11.5-15.5) % Plt Count 265 (150-450) k/uL MPV 7.5 Neutrophils % 55 % Lymphocytes % 32 % Monocytes % 6 % Eosinophils % 2 % Basophils % 2 % Neutrophils # 5.3 (1.3-7.7) k/uL Lymphocytes # 3.1 (1.0-4.8) k/uL Monocytes # 0.6 (0-1.0) k/uL Eosinophils # 0.2 (0-0.7) k/uL Basophils # 0.2 (0-0.2) k/uL PT 10.9 (9.0-12.0) sec INR 1.0 (<1.2) APTT 24.4 (22.0-30.0) sec Sodium (137-145) mmol/L Potassium (3.5-5.1) mmol/L Chloride (98-107) mmol/L Carbon Dioxide (22-30) mmol/L Anion Gap mmol/L BUN (9-20) mg/dL Creatinine (0.66-1.25) mg/dL Est GFR (CKD-EPI)AfAm (>60 ml/min/1.73 sqM) Est GFR (CKD-EPI)NonAf (>60 ml/min/1.73 sqM) Glucose (74-99) mg/dL POC Glucose (mg/dL) 117 H (75-99) mg/dL POC Glu Telephone Lines Repairer ID Aura Apple Calcium (8.4-10.2) mg/dL Total Bilirubin (0.2-1.3) mg/dL AST (17-59) U/L ALT (4-49) U/L Alkaline Phosphatase (38-126) U/L Troponin I (0.000-0.034) ng/mL Total Protein (6.3-8.2) g/dL Albumin (3.5-5.0) g/dL 05/24/21 05/24/21 Range/Units 13:46 13:46 WBC (3.8-10.6) k/uL RBC (4.30-5.90) m/uL Hgb (13.0-17.5) gm/dL Hct (39.0-53.0) % MCV (80.0-100.0) fL MCH (25.0-35.0) pg MCHC (31.0-37.0) g/dL RDW (11.5-15.5) % Plt Count (150-450) k/uL MPV Neutrophils % % Lymphocytes % % Monocytes % % Eosinophils % % Basophils % % Neutrophils # (1.3-7.7) k/uL Lymphocytes # (1.0-4.8) k/uL Monocytes # (0-1.0) k/uL Eosinophils # (0-0.7) k/uL Basophils # (0-0.2) k/uL PT (9.0-12.0) sec INR (<1.2) APTT (22.0-30.0) sec Sodium 138 (137-145) mmol/L Potassium 4.2 (3.5-5.1) mmol/L Chloride 97 L (98-107) mmol/L Carbon Dioxide 28 (22-30) mmol/L Anion Gap 13 mmol/L BUN 13 (9-20) mg/dL Creatinine 0.72 (0.66-1.25) mg/dL Est GFR (CKD-EPI)AfAm >90 (>60 ml/min/1.73 sqM) Est GFR (CKD-EPI)NonAf >90 (>60 ml/min/1.73 sqM) Glucose 125 H (74-99) mg/dL POC Glucose (mg/dL) (75-99) mg/dL POC Glu Telephone Lines Repairer ID Calcium 10.1 (8.4-10.2) mg/dL Total Bilirubin 0.3 (0.2-1.3) mg/dL AST 25 (17-59) U/L ALT 22 (4-49) U/L Alkaline Phosphatase 56 (38-126) U/L Troponin I <0.012 (0.000-0.034) ng/mL Total Protein 8.1 (6.3-8.2) g/dL Albumin 5.3 H (3.5-5.0) g/dL - Radiology Data Radiology results: report reviewed (Computed tomography scan of the brain shows atrophy without acute process. CT does not reveal acute abnormality.), image reviewed (Chest x-ray reveals no acute process) Disposition Clinical Impression: Cerebrovascular accident (CVA) Disposition: ADMITTED IP TO THIS HOSP Is patient prescribed a controlled substance at d/c from ED?: No Referrals: Wali Bloom MD [Primary Care Provider] - 1-2 days Decision Time: 15:03
[2021-05-24 13:59] LABS: Basophils # (A) 0.2 k/uL (0-0.2); Basophils % (A) 2 %; Eosinophils # (A) 0.2 k/uL (0-0.7); Eosinophils % (A) 2 %; HCT 43.1 % (39.0-53.0); HGB 14.2 gm/dL (13.0-17.5); Lymphocytes # (A) 3.1 k/uL (1.0-4.8); Lymphocytes % (A) 32 %; Mean Platelet Volume 7.5; Monocytes # (A) 0.6 k/uL (0-1.0); Monocytes % (A) 6 %; Neutrophils # (A) 5.3 k/uL (1.3-7.7); Neutrophils % (A) 55 %; Platelet Count 265 k/uL (150-450); RBC 4.74 m/uL (4.30-5.90); RDW 14.7 % (11.5-15.5); WBC 9.7 k/uL (3.8-10.6)
[2021-05-24 14:08] LABS: Partial Thromboplastin Time 24.4 sec (22.0-30.0); Prothrombin Time 10.9 sec (9.0-12.0)
[2021-05-24 14:14] LABS: ALT 22 U/L (4-49); AST 25 U/L (17-59); African American GFR (CKD) >90 (>60 ml/min/1.73 sqM); Albumin 5.3 g/dL (3.5-5.0); Alkaline Phosphatase 56 U/L (38-126); Anion Gap 13 mmol/L; Blood Urea Nitrogen 13 mg/dL (9-20); Calcium 10.1 mg/dL (8.4-10.2); Carbon Dioxide 28 mmol/L (22-30); Chloride 97 mmol/L (98-107); Glucose 125 mg/dL (74-99); Non-African American GFR(CKD) >90 (>60 ml/min/1.73 sqM); Potassium 4.2 mmol/L (3.5-5.1); Sodium 138 mmol/L (137-145); Total Bilirubin 0.3 mg/dL (0.2-1.3); Total Protein 8.1 g/dL (6.3-8.2)
--- NOTE | 2021-05-24 14:35 | XR ---
EXAMINATION TYPE: XR chest 2V DATE OF EXAM: 05/24/2021 COMPARISON: 07/31/2019 HISTORY: Altered mental status TECHNIQUE: Frontal and lateral views of the chest are obtained. FINDINGS: There is no focal air space opacity, pleural effusion, or pneumothorax seen. Cardiac silho uette is unchanged in size with AICD leads. IMPRESSION: No acute cardiopulmonary process.
--- NOTE | 2021-05-24 14:36 | CT ---
EXAMINATION TYPE: CT brain wo con for TPA DATE OF EXAM: 05/24/2021 COMPARISON: 02/08/2015 HISTORY: Right arm weakness and numbness CT DLP: 1101.[address] of the brain was performed. The ventricles, basal cisterns and sulci overlying the cerebral convexities demonstrate mild enlargem ent. Remote insult left saldaña radiata. There is no evidence for intracranial hemorrhage or sulcal effacement. There is decreased attenuation about the periventricular white matter and deep white matter of both c erebral hemispheres, compatible with chronic small vessel ischemia. Differential diagnosis does inclu de demyelination. No mass effects are seen.No midline shift. Osseous calvarium is intact. Changes of chronic sinusitis. If symptoms persist consider MRI. IMPRESSION: 1. Age related atrophic and chronic small vessel ischemic change without acute intracranial process s een at this time.
--- NOTE | 2021-05-24 14:49 | CT ---
EXAMINATION TYPE: CT angio head neck DATE OF EXAM: 05/24/2021 COMPARISON: None HISTORY: Right arm weakness and numbness CT DLP: 736.1 mGycm CONTRAST: Performed with IV Contrast, patient injected with 65 mL of Isovue 370. Combination Contrast CTA cervical carotids and [place] CTA cervical carotids with 3-D recons truction Contrast CTA of the cervical carotids was performed 3-D reconstruction imaging obtained at a separate workstation. Right carotid system: Mild plaque is seen of the right common carotid artery. There is mild plaque a lso noted at the carotid bulb and proximal ICA. Estimated diameter reduction of 50-60%. ECA is garcia nt. Right vertebral artery appears unremarkable. Left carotid system: Mild plaque is seen of the left common carotid artery. There is mild plaque als o noted at the carotid bulb and proximal ICA. Estimated diameter reduction of less than 50%. ECA is patent. Left vertebral artery appears unremarkable. IMPRESSION: 1. No significant diameter reduction to account for the patient's symptoms. CTA [place] with 3-D reconstruction Contrast CTA of the [place] was performed 3-D reconstruction imaging obtained at a separate workstation. Vertebrobasilar system as well as intracranial portions of the internal carotid arteries and their ma daniella tributaries are patent. I do not see evidence for sizable aneurysm or vascular malformation. Pl ease note MRI provides greater sensitivity and specificity. Visualized brain appears grossly unremar kable. IMPRESSION: 1. No significant abnormality.
[2021-05-24] MEDS ORDERED: ASPIRIN 325 MG TAB PO STA (15:03)
[2021-05-24] MEDS: SODIUM CHLORIDE 0.9% 1,000 ML IV SCH (15:09)
[2021-05-24 16:54] LABS: Glucose,Whole Blood 131 mg/dL (75-99)
[2021-05-24] MEDS ORDERED: ACETAMINOPHEN TAB 325 MG TAB PO PRN (16:56)
[2021-05-24] MEDS ORDERED: NALOXONE 0.4 MG/ML 1 ML VIAL IV PRN (16:56)
[2021-05-24] MEDS ORDERED: SUMAtriptan succinate 50 MG TAB PO PRN (16:57)
[2021-05-24] MEDS ORDERED: IPRATROPIUM-ALBUTEROL 3 ML NEB INHALATION PRN (16:57)
[2021-05-24] MEDS: INSULIN ASPART (NovoLOG) 100 UNIT/ML VIAL SQ SCH ×2 (18:28→20:17)
[2021-05-24] MEDS: carvediloL 6.25 MG TAB PO SCH (18:37)
--- NOTE | 2021-05-24 18:44 | P.CNNES ---
History of Present Illness Consult date: 05/24/21 Requesting physician: Jordon Bernabe Reason for Consult: CVA History of Present Illness: This is a 70-year-old gentleman with history of stroke and TIA (in 2006 had stroke then had TIA X2) , diabetes mellitus, hypertension, hyperlipidemia, myocardial infarction s/p stent and pacemaker, hypothyroidism who presented emergency department on 05/24/2021 for right-sided weakness and numbness of the right upper extremity. Some of the history is obtained from patient's (Annel) via phone. Patient woke up at 10:00 in the morning with the symptoms of worsening of right sided weakness. The noticed when she was making him coffee he could not hold it. She said he has baseline mild right sided weakness but is worse today. The patient acknowledge that he has way worse weakness than his baseline He woke up at 3:00 in the morning today and went to bathroom and was doing well then went back to sleep. He also noticed numbness over the right upper extremity. Denies visual disturbance, headaches. He felt his speech is same but his noticed his speech is off. Per his speech is off time to time. Patient feels his symptoms are improving but not back to baseline. Patient has an old stroke in which he has mild slurring the speech, some expressive aphasia and right facial weakness and mild right sided weakness according to patient. Patient denies tobacco use, alcohol use or illicit drug use. Some of the patient's home medication consist of aspirin 81 mg daily, Plavix 75 mg daily, Lipitor 40 mg daily, metformin, clonazepam, Effexor, Imitrex 50 mg daily when necessary, potassium, carvedilol. Patient is compliant taking his medication Patient use to follow-up with Dr. Ramirez in the past for neurological care but has not done so for years. Per , patient is independent prior to this and still handles his activities of daily living. Some of the workup in the hospital consisted of: Initial vital signs: Blood pressure of 153/87, heart rate of 95, respiratory of 18, temperature of 98.3 Fahrenheit oral pulse ox of 99% room air. CBC with differential is unremarkable. Chemistry panel seems unremarkable. AST of 25 and ALT of 22, calcium of 10.1 which are all within normal limits. Basic coagulation study is within normal limits. CT of the head is reported as age-related atrophic and chronic small vessel ischemic change without acute intracranial process seen at this time. Personally reviewed the CT of the head and I felt the patient has encephalomalacia over the left subcortical left periventricular over the left frontal/parietal region CT angiography of the head is reported as no significant abnormality. While the CT of the necks reported as no significant diameter reduction to account for the patient's symptoms. Patient did not get IV TPA secondary to symptoms is a greater than 4.5 hours. Review of Systems Review of system: The 12 point system was reviewed and apparent positive and negative per HPI. Past Medical History Past Medical History: Heart Failure, COPD, CVA/TIA, Diabetes Mellitus, Eye Disorder, Hyperlipidemia, Hypertension, Myocardial Infarction ([place]), Pneumonia, Prostate Disorder, Thyroid Disorder Additional Past Medical History / Comment(s): JUNI CATARACTS, CVA X3-SPEECH AFFECTED,WEAKNESS RT ARM AND RT LEG, Last Myocardial Infarction Date:: UNK History of Any Multi-Drug Resistant Organisms: None Reported Past Surgical History: AICD, Heart Catheterization With Stent Additional Past Surgical History / Comment(s): HEART STENT X1,PARTIAL THYROID ECTOMY Past Anesthesia/Blood Transfusion Reactions: No Reported Reaction Additional Past Anesthesia/Blood Transfusion Reaction / Comment(s): NEVER HAD A BLOOD TRANSFUSION Date of Last Stent Placement:: 07/2014 Type of Cardiac Device: AICD Device Placement Date:: 04/2018 Smoking Status: Current some day smoker, Former smoker - Past Family History Mother Family Medical History: Renal Disease Father Family Medical History: Myocardial Infarction ([place]) Brother(s) Family Medical History: CVA/TIA, Hypertension Sister(s) Additional Family Medical History / Comment(s): CABG Medications and Allergies Home Medications Medication Instructions Recorded Confirmed Type Atorvastatin [Lipitor] 40 mg PO DAILY 07/09/14 05/24/21 History Carvedilol 6.25 mg PO BID 07/09/14 05/24/21 History Clopidogrel Bisulfate [Clopidogrel] 75 mg PO DAILY 07/09/14 05/24/21 History Levothyroxine Sodium [Synthroid] 112 mcg PO DAILY 07/09/14 05/24/21 History Loratadine [Claritin] 10 mg PO DAILY 07/09/14 05/24/21 History Tamsulosin HCl 0.4 mg PO HS 07/09/14 05/24/21 History clonazePAM [Clonazepam] 1 mg PO HS 07/09/14 05/24/21 History Budesonide/Formoterol Fumarate 2 puff INHALATION RT-BID 07/16/18 05/24/21 History [Symbicort 160-4.5 Mcg Inhaler] Losartan [Cozaar] 50 mg PO DAILY 07/16/18 05/24/21 History Torsemide [Demadex] 20 mg PO DAILY 07/16/18 05/24/21 History Venlafaxine HCl [Effexor] 100 mg PO HS 07/16/18 05/24/21 History metFORMIN HCL [Glucophage] 1,000 mg PO BID 07/16/18 05/24/21 History Aspirin EC [Ecotrin Low Dose] 81 mg PO DAILY 05/24/21 05/24/21 History Ipratropium-Albuterol Nebulize 3 ml INHALATION RT-DAILY PRN 05/24/21 05/24/21 History [Duoneb 0.5 mg-3 mg/3 ml Soln] Potassium Chloride 10 meq PO DAILY 05/24/21 05/24/21 History SUMAtriptan succinate [Imitrex] 50 mg PO DAILY PRN 05/24/21 05/24/21 History Venlafaxine HCl [Effexor XR] 150 mg PO DAILY 05/24/21 05/24/21 History Allergies Allergy/AdvReac Type Severity Reaction Status Date / Time Iodinated Contrast Media Allergy Dyspnea Verified 05/24/21 15:18 [Iodinated Contrast Media - IV Dye] iodine Allergy Dyspnea Verified 05/24/21 15:18 Physical Examination - Vital Signs Vital Signs: Vital Signs Temp Pulse Pulse Resp BP BP Pulse Ox 05/24/21 16:00 98 F 72 18 132/62 99 05/24/21 15:11 75 18 147/79 99 05/24/21 13:26 98.3 F 95 18 153/87 99 Intake and Output 05/24/21 05/24/21 05/24/21 06:59 14:59 22:59 Intake Total 118 Balance 118 Intake: Oral 118 Other: # Voids 1 Weight 95.254 kg 95.254 kg GENERAL: The patient is lying in bed and is not in acute distress. CHEST: The heart rate is regular rate rhythm. No murmurs to auscultation. No carotid bruit bilaterally----. LUNG: Clear to auscultation bilaterally no wheezing noted throughout. Not labored breathing. ABDOMEN/GI: Bowel sounds present in all 4 quadrants. No tenderness to palpation throughout. NEUROLOGICAL: Higher mental function: The patient is awake, alert, oriented to self, place and time. Patient is following commands. No aphasia noticed and no neglect. Cranial nerves: The pupils are round, equal and reactive to light and accommodation. Visual franklin are full to confrontation throughout. Extraocular movement is intact no nystagmus is noted. Facial sensation is normal to touch throughout. The facial strength is normal throughout. Hearing is mildly decreased bilaterally to hand rub. Tongue is midline and moved [id number] without any difficulty. Minimal to mild dysarthria is noted (old). Shoulder shrug is normal bilaterally. Motor: Gait is deferred. The strength is right upper extremity is 4+ to 5- while lower is 4-. Otherwise 5 over 5 throughout over the left. Normal tone and bulk. Cerebellum: Normal finger to nose. Patient has resting tremor over the left but predominately noticeable to end action tremor (he said he had since his 19 and was bilateral and had hard time writing but since stroke right has resolved). Sensation: Sensation is decrease over the right upper while normal throughout. Reflexes (right/left): 2+ in uppers while 3+ bilateral patellar and ankles are 1+ bilaterally Plantars are mute bilaterally. Results - Laboratory Findings CBC and BMP: 05/24/21 13:46 05/24/21 13:46 Abnormal Lab Findings: Abnormal Labs 05/24/21 05/24/21 05/24/21 13:26 13:46 16:47 Chloride 97 L Glucose 125 H POC Glucose (mg/dL) 117 H 131 H Albumin 5.3 H Assessment and Plan Assessment: Worsening of the right-sided weakness, right upper extremity numbness seems likely due to acute ischemic stroke. Rule out seizure because of old stroke can cause cortical irritability. History of old stroke with residual mild right-sided weakness, mild expressive aphasia, mild dysarthria and right facial weakness (had 1 ischemic stroke in 2006 with 2 TIA's) Diabetes mellitus Hypertension Hyperlipidemia History of myocardial infarction status post stent and pacemaker Hypothyroidism Plan: Patient was given aspirin 325mg once in the ED. he was restarted on aspirin 325 mg daily and Plavix 75 mg daily. I stopped Plavix and started the patient on Brilinta 180mg loading dose then 90mg 1 tab bid. I increased lipitor from 40mg to 80mg qhs. I ordered hemoglobin A1c, TSH level. Cannot get MRI Brain since has pacemaker and per patient not compatible. Will get repeat CT head likely tomorrow (usually stroke is seen on repeat CT head within 48 hours of symptoms) 2-D echo, lipid panel are ordered. Q4 hour neuro checks. Placed on continous cardiac monitoring PT, OT and MANAGER PE are consulted. Ordered routine EEG. Will not start the patient on antiepileptic drug unless there is epileptiform discharges or seizure on the EEG. We'll defer the rest of the medical management to primary team. DVT prophylaxis: Subq heparin 5000U q12 hours. The plan is discussed with the patient and his (Annel) via phone. Thank you for the consultation. Haresh Khanna MD [facility] Time with Patient: Greater than 30
[2021-05-24] MEDS ORDERED: TICAGRELOR 90 MG TAB PO STA (19:26)
[2021-05-24] MEDS: SYMBICORT 160-4.5 MCG INHALER INHALATION SCH (19:34)
[2021-05-24 19:54] LABS: Glucose,Whole Blood 176 mg/dL (75-99)
[2021-05-24] MEDS: VENLAFAXINE HCL 50 MG TAB PO SCH (20:17)
[2021-05-24] MEDS: HEPARIN SODIUM,PORCINE/PF 5,000 UNIT/0.5 ML SYRINGE SQ SCH (20:17)
[2021-05-24] MEDS ORDERED: TAMSULOSIN 0.4 MG CAP.ER.24H PO SCH (21:00)
[2021-05-24] MEDS ORDERED: ATORVASTATIN 80 MG TAB PO SCH (21:00)
[2021-05-24] MEDS ORDERED: clonazePAM 1 MG TAB PO SCH (21:00)
[2021-05-25 02:04] LABS: Hemoglobin A1C 6.1 % (4.0-6.0)
[2021-05-25] MEDS: SODIUM CHLORIDE 0.9% 1,000 ML IV SCH (05:22)
[2021-05-25 06:10] LABS: Glucose,Whole Blood 127 mg/dL (75-99)
[2021-05-25] MEDS: carvediloL 6.25 MG TAB PO SCH (06:10)
[2021-05-25] MEDS: INSULIN ASPART (NovoLOG) 100 UNIT/ML VIAL SQ SCH ×2 (06:10→12:30)
[2021-05-25] MEDS ORDERED: LEVOTHYROXINE 112 MCG TAB PO SCH (06:30)
[2021-05-25] MEDS: SYMBICORT 160-4.5 MCG INHALER INHALATION SCH (07:34)
--- NOTE | 2021-05-25 08:39 | CT ---
EXAMINATION TYPE: CT brain wo con DATE OF EXAM: 05/25/2021 COMPARISON: 7 05/24/2021 HISTORY: Right sided weakness CT DLP: [address] of the brain was performed. The ventricles, basal cisterns and sulci overlying the cerebral convexities demonstrate mild enlargem ent. Redemonstrated is a remote insult left saldaña radiata. There is no evidence for intracranial hemorrhage or sulcal effacement. There is decreased attenuation about the periventricular white matter and deep white matter of both c erebral hemispheres, compatible with chronic small vessel ischemia. Differential diagnosis does inclu de demyelination. No mass effects are seen.No midline shift. Osseous calvarium is intact. If symptoms persist consider MRI. IMPRESSION: 1. Age related atrophic and chronic small vessel ischemic change without acute intracranial process s een at this time.
[2021-05-25] MEDS ORDERED: POTASSIUM CHLORIDE ER 10 MEQ TAB.ER.PRT PO SCH (09:00)
[2021-05-25] MEDS ORDERED: TICAGRELOR 90 MG TAB PO SCH (09:00)
[2021-05-25] MEDS: LOSARTAN 50 MG TAB PO SCH ×2 (09:00→10:48)
[2021-05-25] MEDS: HEPARIN SODIUM,PORCINE/PF 5,000 UNIT/0.5 ML SYRINGE SQ SCH (09:00)
[2021-05-25] MEDS ORDERED: NON FORMULARY DRUG (Aspirin Ec 81 MG Tablet.Dr) PO SCH (09:00)
[2021-05-25] MEDS ORDERED: LORATADINE 10 MG TAB PO SCH (09:00)
[2021-05-25] MEDS ORDERED: ASPIRIN 325 MG TAB PO SCH (09:00)
[2021-05-25] MEDS: VENLAFAXINE HCL 50 MG TAB PO SCH (09:00)
[2021-05-25] MEDS ORDERED: ATORVASTATIN 40 MG TAB PO SCH (09:00)
[2021-05-25] MEDS ORDERED: VENLAFAXINE HCL ER 150 MG CAP PO SCH (09:00)
[2021-05-25] MEDS ORDERED: TORSEMIDE 20 MG TAB PO SCH (09:00)
[2021-05-25] MEDS ORDERED: ASPIRIN 81 MG PO SCH (09:00)
[2021-05-25] MEDS ORDERED: CLOPIDOGREL 75 MG TAB PO SCH (09:00)
[2021-05-25 10:02] VITALS: BP 128/66
[2021-05-25 11:34] LABS: Glucose,Whole Blood 90 mg/dL (75-99)
[2021-05-25 11:53] LABS: Basophils # (A) 0.1 k/uL (0-0.2); Basophils % (A) 1 %; Eosinophils % (A) 0 %; HCT 38.9 % (39.0-53.0); HGB 12.8 gm/dL (13.0-17.5); Lymphocytes # (A) 2.8 k/uL (1.0-4.8); Lymphocytes % (A) 17 %; MCV 91.1 fL (80.0-100.0); Mean Platelet Volume 7.8; Monocytes # (A) 0.9 k/uL (0-1.0); Monocytes % (A) 6 %; Neutrophils # (A) 12.1 k/uL (1.3-7.7); Neutrophils % (A) 74 %; Platelet Count 244 k/uL (150-450); RBC 4.27 m/uL (4.30-5.90); RDW 14.7 % (11.5-15.5); WBC 16.4 k/uL (3.8-10.6)
--- NOTE | 2021-05-25 12:00 | ECHOF ---
Referral Reason:Thrombus MEASUREMENTS -------- HEIGHT: 175.3 cm WEIGHT: 95.3 kg BP: 132/60 RVIDd: 3.6 cm (< 3.3) IVSd: 1.6 cm (0.6 - 1.1) LVIDd: 4.7 cm (3.9 - 5.3) LVPWd: 1.1 cm (0.6 - 1.1) IVSs: 2.0 cm LVIDs: 3.2 cm LVPWs: 1.6 cm LAESV Index (A-L): 23.29 ml/m Ao Diam: 3.4 cm (2.0 - 3.7) AV Cusp: 2.0 cm (1.5 - 2.6) MV EXCURSION: 15.568 mm (> 18.000) MV EF SLOPE: 96 mm/s (70 - 150) EPSS: 1.0 cm MV E Harrison: 0.91 m/s MV DecT: 222 ms MV A Harrison: 1.39 m/s MV E/A Ratio: 0.66 AR PHT: 372 ms RAP: 5.00 mmHg RVSP: 26.61 mmHg FINDINGS -------- Sinus rhythm. This was a technically difficult study with suboptimal views. The left ventricular size is normal. There is moderate concentric left ventricular hypertrophy. O verall left ventricular systolic function is normal with, an EF between 55 - 60 %. The right ventricle is mildly enlarged. Normal LA size by volume 22+/-6 ml/m2. The right atrium was not well visualized. 5.0mg of Lumason was utilized for enhancement of images Interatrial and interventricular septum intact. The aortic valve was not well visualized. There is no evidence of aortic regurgitation. There is no evidence of aortic stenosis. There is trace to mild mitral regurgitation. Mild tricuspid regurgitation present. There is no evidence of pulmonary hypertension. The right v entricular systolic pressure, as measured by Doppler, is 26.61mmHg. There is no pulmonic regurgitation present. The aortic root size is normal. IVC Not well visulized. There is no pericardial effusion. CONCLUSIONS -------- 1. The left ventricular size is normal. 2. There is moderate concentric left ventricular hypertrophy. 3. Overall left ventricular systolic function is normal with, an EF between 55 - 60 %. 4. The right ventricle is mildly enlarged. 5. There is trace to mild mitral regurgitation. 6. Mild tricuspid regurgitation present. PROJECT SAFETY MANAGER: Caity Gomes RDCS
[2021-05-25 12:05] LABS: ALT 20 U/L (4-49); AST 22 U/L (17-59); African American GFR (CKD) >90 (>60 ml/min/1.73 sqM); Albumin 4.8 g/dL (3.5-5.0); Alkaline Phosphatase 51 U/L (38-126); Anion Gap 11 mmol/L; Blood Urea Nitrogen 11 mg/dL (9-20); Calcium 10.4 mg/dL (8.4-10.2); Carbon Dioxide 27 mmol/L (22-30); Chloride 97 mmol/L (98-107); Glucose 96 mg/dL (74-99); Non-African American GFR(CKD) >90 (>60 ml/min/1.73 sqM); Phosphorus 3.3 mg/dL (2.5-4.5); Potassium 4.1 mmol/L (3.5-5.1); Sodium 135 mmol/L (137-145); Total Bilirubin 0.2 mg/dL (0.2-1.3); Total Protein 7.2 g/dL (6.3-8.2)
[2021-05-25 12:06] VITALS: PULSE 80; RESP 16; TEMP 97.8
--- NOTE | 2021-05-25 13:28 | P.DS ---
Providers Date of admission: 05/24/21 15:05 Expected date of discharge: 05/25/21 Attending physician: Ruben Cardenas MD Consults: 05/24/21 15:04 Consult Physician Urgent Consulting Provider: Haresh Khanna Consult Reason/Comments: cva Do you want consulting provider notified?: Yes Primary care physician: [facility] Course: 70-year-old male presenting to the emergency Department with right-sided weakness as well as right arm/hand/fingers numbness. Patient woke at 10 AM with the symptoms that have been persistent since that time. Prior to that patient woke up at around 3 AM and was symptom-free at that time. Due to old stroke in 2006 patient has right facial weakness and expressive aphasia, slurred speech which is chronic and unchanged. Patient has paresthesias and mild weakness of his right arm and right leg which is new. He has not been able to walk or stand for a long time due to right leg weakness. He states he had was feeling lightheaded when he gets up over the past couple of days. Has chronic sob. No chest pain. No confusion. No headache. In the ER head CT showed nothing acute. CT angio showed no stenosis or dissection. Basic labs ok, he was admitted for further evaluation. Patient was seen by neurology upon admission. Repeat head computed tomography scan the following day was stable. The weakness improved significantly the following day. He is currently back at his baseline. He was able to walk throughout the chaudhary with physical therapy when seen this morning. He denied having any numbness today. Neurology recommended discontinuing Plavix and starting brilinta. This was done upon discharge. Lipitor was also increased from 40 mg to 80 mg daily. Patient was cleared by neurology for discharge. Patient will be discharged home in a stable condition. Time for discharge 35 minutes. Plan - Discharge Summary Discharge Rx Participant: Yes New Discharge Prescriptions: New Ticagrelor [Brilinta] 90 mg PO BID 30 Days #60 tab Atorvastatin [Lipitor] 80 mg PO HS 30 Days #30 tab Continue Levothyroxine Sodium [Synthroid] 112 mcg PO DAILY Loratadine [Claritin] 10 mg PO DAILY clonazePAM [Clonazepam] 1 mg PO HS Tamsulosin HCl 0.4 mg PO HS Carvedilol 6.25 mg PO BID Torsemide [Demadex] 20 mg PO DAILY Budesonide/Formoterol Fumarate [Symbicort 160-4.5 Mcg Inhaler] 2 puff INHALATION RT-BID metFORMIN HCL [Glucophage] 1,000 mg PO BID Losartan [Cozaar] 50 mg PO DAILY Venlafaxine HCl [Effexor] 100 mg PO HS Ipratropium-Albuterol Nebulize [Duoneb 0.5 mg-3 mg/3 ml Soln] 3 ml INHALATION RT-DAILY PRN PRN Reason: Shortness Of Breath Venlafaxine HCl [Effexor XR] 150 mg PO DAILY Aspirin EC [Ecotrin Low Dose] 81 mg PO DAILY SUMAtriptan succinate [Imitrex] 50 mg PO DAILY PRN PRN Reason: Migraine Headache Potassium Chloride 10 meq PO DAILY Discontinued Atorvastatin [Lipitor] 40 mg PO DAILY Clopidogrel Bisulfate [Clopidogrel] 75 mg PO DAILY Discharge Medication List Carvedilol 6.25 mg PO BID 07/09/14 [History] Levothyroxine Sodium [Synthroid] 112 mcg PO DAILY 07/09/14 [History] Loratadine [Claritin] 10 mg PO DAILY 07/09/14 [History] Tamsulosin HCl 0.4 mg PO HS 07/09/14 [History] clonazePAM [Clonazepam] 1 mg PO HS 07/09/14 [History] Budesonide/Formoterol Fumarate [Symbicort 160-4.5 Mcg Inhaler] 2 puff INHALATION RT-BID 07/16/18 [History] Losartan [Cozaar] 50 mg PO DAILY 07/16/18 [History] Torsemide [Demadex] 20 mg PO DAILY 07/16/18 [History] Venlafaxine HCl [Effexor] 100 mg PO HS 07/16/18 [History] metFORMIN HCL [Glucophage] 1,000 mg PO BID 07/16/18 [History] Aspirin EC [Ecotrin Low Dose] 81 mg PO DAILY 05/24/21 [History] Ipratropium-Albuterol Nebulize [Duoneb 0.5 mg-3 mg/3 ml Soln] 3 ml INHALATION RT-DAILY PRN 05/24/21 [History] Potassium Chloride 10 meq PO DAILY 05/24/21 [History] SUMAtriptan succinate [Imitrex] 50 mg PO DAILY PRN 05/24/21 [History] Venlafaxine HCl [Effexor XR] 150 mg PO DAILY 05/24/21 [History] Atorvastatin [Lipitor] 80 mg PO HS 30 Days #30 tab 05/25/21 [Rx] Ticagrelor [Brilinta] 90 mg PO BID 30 Days #60 tab 05/25/21 [Rx] Follow up Appointment(s)/Referral(s): Wali Bloom MD [Primary Care Provider] - 1-2 days
--- NOTE | 2021-05-25 14:17 | CDI ---
Documentation Clarification Form Date: 05/25/2021 01:41:16 PM From: Silvia Subramanian RN, CCDS Admit Date: 05/24/2021 03:05:00 PM Patient Name: Alex Cuba Visit Number: [id number] Discharge Date: ATTENTION: The Clinical Documentation Specialists (CDI) and [facility] Coding Staff appreciate your assistance in clarifying documentation. Please respond to the clarification below the line at the bottom and electronically sign. The CDI & [facility] Coding staff will review the response and follow-up if needed. Please note: Queries are made part of the Legal Health Record. If you have any questions, please contact the author of this message via ITS. Dr. Ruben Cardenas The patients principal diagnosis the diagnosis that was chiefly responsible for the admission - has not been clearly identified and clarification is requested. The patient presented with right-sided weakness. History/Risk factors: CVA, expressive aphasia, Slurred speech, Hypertension Diabetes Mellitus current smoker, Heart failure Clinical Indicators: 70-year-old male present to ED with right-sided weakness with history of old stroke in 2006. He has paresthesia and mild weakness of his right arm and right leg which is new. Lab findings: 05/24 CT Brain: Age related atrophic and chronic small vessel ischemic change without acute intracranial process. 05/25 CT Brain: Age related atrophic and chronic small vessel ischemic change without acute intracranial process. CT angio showed no stenosis or dissection 05/24 Vital Signs: 153/87 95 18 98.3 05/25 ECHO: Overall left ventricular systolic function is normal with, an EF between 55-60 % Treatment: Telemetry Monitoring PT, OT, MATERIAL CHASER consulted Brillinta 90 MG PO BID Lipitor 80 MG PO Daily Coreg 6.25 MG PO BID ASA 81 MG PO Daily Cozaar 50 MG PO Daily 05/24 Neurology Consults: worsening of right-sided weakness, right upper extremity numbness seems likely due to acute ischemic stroke. Rule out seizure because of old stroke can cause cortical irritability. Q4 hour neuro checks In your professional opinion, can you please clarify which diagnosis, after study, was the reason chiefly responsible for the admission? [ ] Acute ischemic CVA [ ] Other, please specify [ ] Unable to determine (Template Last Revised: January 2021) Acute ischemic CVA MTDD
--- NOTE | 2021-05-25 14:30 | CDI ---
Documentation Clarification Form Date: 05/25/2021 02:18:39 PM From: Silvia Subramanian RN, CCDS Admit Date: 05/24/2021 03:05:00 PM Patient Name: Alex Cuba Visit Number: [id number] Discharge Date: ATTENTION: The Clinical Documentation Specialists (CDI) and [facility] Coding Staff appreciate your assistance in clarifying documentation. Please respond to the clarification below the line at the bottom and electronically sign. The CDI & [facility] Coding staff will review the response and follow-up if needed. Please note: Queries are made part of the Legal Health Record. If you have any questions, please contact the author of this message via ITS. Dr. Ruben Cardenas Your patient has the documented diagnosis of unspecified CHF in the past medical history. Additional information regarding the type, acuity of CHF is requested. History/Risk Factors: Heart failure, COPD, CVA, TIA, Diabetes mellitus, Hypertension, Thyroid disorder Clinical Indicators: 70-rome-old male present to ED on 05/24 with complaints of right-sided weakness. He has a history of CHF with ongoing treatment. 05/24 VS/Pulse OX: 153/87 95 18 98.3 99% RA 05/25 Echocardiogram Results: Overall left ventricular systolic function is normal with, an EF between 55-60 % 05/24 Chest X Ray: No acute cardiopulmonary process Treatment: Demadex 20 MG PO Daily Lipitor 80 MG PO Daily Coreg 6.25 MG PO BID ASA 81 MG PO Daily Cozaar 50 MG PO Daily In your professional opinion, can you please clarify the [acuity and type] of CHF if known? [ ] Chronic Diastolic Heart Failure (preserved EF) [ ] Other, please specify [ ] Unable to determine (Template Last Revised: December 2020) Chronic Diastolic Heart Failure MTDD
--- NOTE | 2021-05-25 14:31 | EEG ---
ELECTROENCEPHALOGRAM REPORT DATE OF SERVICE: 05/25/2021. CLINICAL HISTORY: This is a 70-year-old gentleman with reported repeated right-sided weakness. The video EEG is obtained to evaluate for seizure activity. RELEVANT MEDICATION: The patient is not on any antiepileptic drugs. EEG TYPE: This is a routine 21 channel EEG performed with video using the 10/20 electrode placement system. DESCRIPTION: Wakefulness is only obtained. During wakefulness, there is a posterior dominant rhythm of low to moderate voltage of 8.5-9.5 hertz activity. There is no sleep architecture seen. There is no focal slowing. Intraictal and ictal is none. ACTIVATION PROCEDURE: Photic stimulation did not evoke a positive driving response. There is no abnormality during the photic stimulation. Hyperventilation is not performed. CLINICAL INTERPRETATION: This is a normal routine EEG. There are no focal slowing, epileptiform discharges or seizure on the EEG. Clinical correlation is recommended. SHRUTI / ZURDO: [id number] / MTDD
--- NOTE | 2021-05-25 14:43 | P.PN ---
Subjective Progress Note Date: 05/25/21 The patient seen at bedside and he stated that his right-sided the weakness is improving since he's been in the hospital. He feels he is not fully back to baseline but very close. He denies of any further numbness. Denies any neurological deficits. Objective - Vital Signs Vital signs: Vital Signs Temp 97.8 F 05/25/21 12:00 Pulse 80 05/25/21 12:00 Resp 16 05/25/21 12:00 BP 128/66 05/25/21 08:00 Pulse Ox 99 05/25/21 12:00 Intake & Output 05/24/21 05/25/21 05/25/21 18:59 06:59 18:59 Intake Total 118 480 Balance 118 480 Weight 95.254 kg 98 kg Intake: Oral 118 480 Other: # Voids 1 - Exam GENERAL: The patient is lying in bed and is not in acute distress. No carotid bruit. NEUROLOGICAL: Higher mental function: The patient is awake, alert, oriented to self, place and time. Patient is following commands. No aphasia noticed and no neglect. Cranial nerves: The pupils are round, equal and reactive to light and acco mmodation. Visual franklin are full to confrontation throughout. Extraocular movement is intact no nystagmus is noted. Facial sensation is normal to touch throughout. The facial strength is normal throughout. Hearing is mildly decreased bilaterally to hand rub. Tongue is midline and moved [id number] without any difficulty. Minimal to mild dysarthria is noted (old). Shoulder shrug is normal bilaterally. Motor: Gait is deferred. The strength is right upper extremity is 4+ to 5- while lower is 5-. Otherwise 5 over 5 throughout over the left. Normal tone and bulk. Cerebellum: Normal finger to nose. Patient has resting tremor over the left but predominately noticeable to end action tremor (he said he had since his 19 and was bilateral and had hard time writing but since stroke right has resolved). Sensation: Sensation is normal throughout. Reflexes (right/left): 2+ in uppers while 3+ bilateral patellar and ankles are 1+ bilaterally Plantars are mute bilaterally. EEG on 05/23/2021 preliminary is normal. There are no focal slowing, epileptiform discharges or seizure on EEG. Repeat CT of the head is reported as age-related atrophy And chronic small vessel ischemic change without acute intracranial process seen at this time. 2-D echo was reported as moderate concentric left ventricular hypertrophy. Ejection fraction of 55-60%. Normal left atrial size by volume. TSH is 3.160 which is considered within normal limits. - Labs CBC & Chem 7: 05/25/21 11:18 05/25/21 11:18 Labs: Abnormal Lab Results - Last 24 Hours (Table) 05/24/21 05/24/21 05/24/21 Range/Units 13:46 16:47 19:53 WBC (3.8-10.6) k/uL RBC (4.30-5.90) m/uL Hgb (13.0-17.5) gm/dL Hct (39.0-53.0) % Neutrophils # (1.3-7.7) k/uL Sodium (137-145) mmol/L Chloride (98-107) mmol/L POC Glucose (mg/dL) 131 H 176 H (75-99) mg/dL Hemoglobin A1c 6.1 H (4.0-6.0) % Calcium (8.4-10.2) mg/dL 05/25/21 05/25/21 05/25/21 Range/Units 06:09 11:18 11:18 WBC 16.4 H (3.8-10.6) k/uL RBC 4.27 L (4.30-5.90) m/uL Hgb 12.8 L (13.0-17.5) gm/dL Hct 38.9 L (39.0-53.0) % Neutrophils # 12.1 H (1.3-7.7) k/uL Sodium 135 L (137-145) mmol/L Chloride 97 L (98-107) mmol/L POC Glucose (mg/dL) 127 H (75-99) mg/dL Hemoglobin A1c (4.0-6.0) % Calcium 10.4 H (8.4-10.2) mg/dL Assessment and Plan Assessment: Worsening of the right-sided weakness, right upper extremity numbness seems likely Transient Ischemic attack (symptoms improving) 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 Continue Lipitor 80mg qhs. Cannot get MRI Brain since has pacemaker and per patient not compatible. Pending lipid panel. Q4 hour neuro checks. Placed on continous cardiac monitoring PT, OT and MANAGER PHILOSOPHY are consulted. We'll defer the rest of the medical management to primary team. DVT prophylaxis: Subq heparin 5000U q12 hours. Upon discharge the patient needs to follow-up with a neurologist as outpatient within 1-2 weeks as outpatient. The plan is discussed with the patient and his (Annel) via phone. There is no further neurological work-up. Haresh Khanna MD [facility] Time with Patient: Less than 30
[2021-05-26 03:00] LABS: Cholesterol 144 mg/dL (0-200); LDL Cholesterol,Calculated 62.8 mg/dL (0.0-131.0)
== END 2021-05-25 16:26 | disposition home or self-care (01) | DRG 65 ==
LOC: EC 13:21 → 3SCARD 15:05
PROVIDERS: ADMIT Internal Medicine; ATTEND Internal Medicine
DX: I63.9 Cerebral infarction, unspecified (principal); I69.351 Hemiplegia and hemiparesis following cerebral infarction affecting right dominant side; I50.32 Chronic diastolic (congestive) heart failure; I69.392 Facial weakness following cerebral infarction; I69.320 Aphasia following cerebral infarction; Z79.82 Long term (current) use of aspirin; Z79.02 Long term (current) use of antithrombotics/antiplatelets; Z79.51 Long term (current) use of inhaled steroids; Z79.84 Long term (current) use of oral hypoglycemic drugs; F17.200 Nicotine dependence, unspecified, uncomplicated; Z82.49 Family history of ischemic heart disease and other diseases of the circulatory system; E11.9 Type 2 diabetes mellitus without complications; I25.2 Old myocardial infarction; I11.0 Hypertensive heart disease with heart failure; E78.5 Hyperlipidemia, unspecified; E03.9 Hypothyroidism, unspecified
CPT/HCPCS: 36415; 70450; 70496; 70498; 71046; 80053; 80061; 83036; 83735; 84100; 84443; 84484; 85025; 85610; 85730; 93005; 93306; 94640; 95816; 96374; 96375; 99285

== ENCOUNTER → 2021-11-01 | Day surgery (SDC) | payer MEDICARE ==
[~2021-11-01] MED LIST: LACTATED RINGERS 1,000 ML IV SCH; LIDOCAINE 1% (10MG/ML) FOR IV START INTRADERMA PRN; PROPOFOL 10 MG/ML 20 ML VIAL IV ONE
[2021-11-01 08:01] LABS: Glucose,Whole Blood 100 mg/dL (75-99)
[2021-11-01 08:03] VITALS: TEMP 97.1
--- NOTE | 2021-11-01 08:49 | P.PCN ---
Date of Procedure: 11/01/21 Procedure(s) Performed: BRIEF HISTORY: Patient is a 71-year-old pleasant white male scheduled for an elective colonoscopy as a part of screening for colorectal neoplasia. PROCEDURE PERFORMED: Colonoscopy with snare polypectomy. PREOPERATIVE DIAGNOSIS: Screening for colon cancer. IV sedation per Anesthesia. PROCEDURE: After informed consent was obtained, the patient, was brought into the endoscopy unit. IV sedation was administered by Anesthesia under continuous monitoring. Digital rectal examination was normal. Initially the Olympus CF-160 flexible video colonoscope was then inserted in the rectum, gradually advanced into the cecum without any difficulty. Careful examination was performed as the scope was gradually being withdrawn. Ileocecal valve and the appendiceal orifice were visualized and appeared normal. Prep was fair.. Mucosa of the cecum, appeared normal. In the ascending colon there was a 5 mm and 1.5 cm broad-based polyp removed by snare polypectomy. Rest of the ascending colon, transverse colon, descending colon, sigmoid colon, and rectum appeared normal. Moderate sigmoid diverticulosis. Retroflexion was performed in the rectum and no lesions were seen. The patient tolerated the procedure well. IMPRESSION: 5 mm and 1.5 cm broad-based ascending colon polyp status post polypectomy Moderate sigmoid diverticulosis RECOMMENDATIONS: Findings of this examination were discussed with the patient as well as his family.. He was advised to follow with the biopsy results. If the biopsy results adenoma he can have a repeat colonoscopy in 3 years
[2021-11-01 08:57] VITALS: RESP 16
[2021-11-01 09:09] VITALS: BP 131/67; PULSE 71
== END ==
LOC: ORWHC2ENDO 06:55
PROVIDERS: ATTEND Internal Medicine Gastroenterology
DX: Z12.11 Encounter for screening for malignant neoplasm of colon (principal)
CPT/HCPCS: 45385; J2704; 88305

== ENCOUNTER → 2022-01-02 | Outpatient (CLI) | payer MEDICARE ==
[2022-01-02 14:37] LABS: HCT 41.9 % (39.6-50.0); HGB 13.2 g/dL (13.0-17.0); MCH 28.4 pg (27.0-32.0); MCHC 31.5 g/dL (32.0-37.0); MCV 90.1 fL (80.0-97.0); Mean Platelet Volume 10.6 fL (9.5-12.2); NRBC Per 100 WBC 0 /100 WBCS (0.0-0.0); Platelet Count 227 X 10*3/uL (140-440); RBC 4.65 X 10*6/uL (4.40-5.60); RDW 14.1 % (11.5-14.5); WBC 7.43 X 10*3/uL (4.50-10.00)
[2022-01-02 14:51] LABS: African American GFR (CKD) 90.2 (60.0-200.0); Albumin 5.1 g/dL (3.8-4.9); Albumin/Globulin Ratio 1.84 (1.60-3.17); Anion Gap 15.8 mmol/L (10.00-18.00); BUN/Creat Ratio 13.95 Ratio (12.00-20.00); Blood Urea Nitrogen 13.5 mg/dL (9.0-27.0); Carbon Dioxide 26.6 mmol/L (20.0-27.5); Globulin 2.8 g/dL (1.6-3.3); Non-African American GFR(CKD) 77.9 (60.0-200.0); Potassium 4.1 mmol/L (3.5-5.5); Total Bilirubin 0.3 mg/dL (0.30-1.20); Total Protein 7.8 g/dL (6.2-8.2)
== END | disposition home or self-care (01) ==
LOC: LABWHC1 10:13
PROVIDERS: ATTEND Internal Medicine Cardiovascular Disease
DX: G45.8 Other transient cerebral ischemic attacks and related syndromes (principal); R55 Syncope and collapse
CPT/HCPCS: 36415; 80053; 85027

== ENCOUNTER → 2022-05-23 | Outpatient (CLI) | payer MEDICARE ==
[2022-05-23 10:33] LABS: African American GFR (CKD) >90 (>60 ml/min/1.73 sqM); Blood Urea Nitrogen 11 mg/dL (9-20); Non-African American GFR(CKD) 90 (>60 ml/min/1.73 sqM)
--- NOTE | 2022-05-23 11:19 | CT ---
EXAMINATION TYPE: CT chest w con DATE OF EXAM: 05/23/2022 COMPARISON: CT chest 06/15/2020 HISTORY: Lung nodule CT DLP: 510.1 mGycm Automated exposure control for dose reduction was used. CONTRAST: CT scan of the chest is performed with IV Contrast, patient injected with 70 mL of Isovue 300. FINDINGS: LUNGS: The lungs are stable, there is no concerning parenchymal mass or nodule identified. There is no pleural effusion or pneumothorax seen. The tracheobronchial tree is patent. MEDIASTINUM: There are no greater than 1 cm hilar or mediastinal lymph nodes. No pericardial effusi on is seen. There are dense coronary artery calcifications as on prior exam, generators present in t he left pectoral region, leads are again noted within the right atrium and ventricle AORTA: No additional significant abnormality is seen. OTHER: Bilateral maxillary sinus disease is noted incidentally. IMPRESSION: Stable chest CT, no acute abnormality. Coronary artery disease, benign lung nodules. Cor relate for maxillary sinus disease
== END | disposition home or self-care (01) ==
LOC: RADCTMAIN 09:48
PROVIDERS: ATTEND Internal Medicine Critical Care Medicine
DX: I25.10 Atherosclerotic heart disease of native coronary artery without angina pectoris (principal); R91.8 Other nonspecific abnormal finding of lung field
CPT/HCPCS: 82565; 84520; 71260; 36415; Q9967

== ENCOUNTER → 2023-02-08 | Outpatient (CLI) | payer MEDICARE ==
[2023-02-08 15:19] LABS: HCT 40.9 % (39.6-50.0); HGB 13.2 g/dL (13.0-17.0); MCH 29.4 pg (27.0-32.0); MCHC 32.3 g/dL (32.0-37.0); MCV 91.1 fL (80.0-97.0); Mean Platelet Volume 10.9 fL (9.5-12.2); NRBC Per 100 WBC 0 /100 WBCS (0.0-0.0); Platelet Count 231 X 10*3/uL (140-440); RBC 4.49 X 10*6/uL (4.40-5.60); RDW 14.2 % (11.5-14.5); WBC 10.01 X 10*3/uL (4.50-10.00)
[2023-02-08 15:48] LABS: African American GFR (CKD) 93.2 (60.0-200.0); BUN/Creat Ratio 12.17 Ratio (12.00-20.00); Blood Urea Nitrogen 11.4 mg/dL (9.0-27.0); C Reactive Protein, High Sens 0.226 mg/L (0.000-3.000); Calcium 9.8 mg/dL (8.7-10.3); Carbon Dioxide 30.1 mmol/L (20.0-27.5); Chloride 92 mmol/L (96-109); Chol/HDL Ratio 2.92 Ratio; Glucose 120 mg/dL (70-110); LDL Cholesterol,Calculated 45.6 mg/dL (0.0-131.0); Non-African American GFR(CKD) 80.4 (60.0-200.0); Potassium 4.1 mmol/L (3.5-5.5); Sodium 136 mmol/L (135-145)
== END | disposition home or self-care (01) ==
LOC: LABWHC1 09:25
PROVIDERS: ATTEND Family Medicine
DX: I11.9 Hypertensive heart disease without heart failure (principal); I50.9 Heart failure, unspecified; E78.2 Mixed hyperlipidemia; G47.33 Obstructive sleep apnea (adult) (pediatric)
CPT/HCPCS: 36415; 80048; 80061; 83036; 84443; 85027; 86141

== ENCOUNTER 2023-10-26 16:12 | Observation (INO) | payer MEDICARE ==
[2023-10-26] MEDS ORDERED: methylPREDNISolone SOD SUCCI 125 MG/2 ML VIAL IV STA (16:38)
[2023-10-26] MEDS ORDERED: FAMOTIDINE 20 MG/2 ML VIAL IV STA (16:38)
[2023-10-26] MEDS ORDERED: diphenhydrAMINE 50 MG/ML 1 ML VIAL IVP STA (16:38)
[2023-10-26 17:22] LABS: Basophils # (A) 0.1 k/uL (0-0.2); Basophils % (A) 1 %; Eosinophils # (A) 0.1 k/uL (0-0.7); Eosinophils % (A) 2 %; HCT 35.4 % (39.0-53.0); Lymphocytes # (A) 1.9 k/uL (1.0-4.8); Lymphocytes % (A) 24 %; MCV 88.3 fL (80.0-100.0); Mean Platelet Volume 8.3; Monocytes # (A) 0.5 k/uL (0-1.0); Monocytes % (A) 7 %; Neutrophils # (A) 5.2 k/uL (1.3-7.7); Neutrophils % (A) 65 %; Platelet Count 229 k/uL (150-450); RBC 4.01 m/uL (4.30-5.90); RDW 13.8 % (11.5-15.5)
[2023-10-26 17:35] LABS: Partial Thromboplastin Time 24.8 sec (22.0-30.0); Prothrombin Time 10.9 sec (10.0-12.5)
[2023-10-26 17:40] LABS: ALT 21 U/L (4-49); AST 23 U/L (17-59); African American GFR (CKD) >90 (>60 ml/min/1.73 sqM); Albumin 4.7 g/dL (3.5-5.0); Alkaline Phosphatase 61 U/L (38-126); Anion Gap 14 mmol/L; Blood Urea Nitrogen 12 mg/dL (9-20); Calcium 9.4 mg/dL (8.4-10.2); Carbon Dioxide 29 mmol/L (22-30); Chloride 94 mmol/L (98-107); Creatine Kinase 68 U/L (55-170); Glucose 140 mg/dL (74-99); Non-African American GFR(CKD) >90 (>60 ml/min/1.73 sqM); Potassium 3.4 mmol/L (3.5-5.1); Sodium 137 mmol/L (137-145); Total Bilirubin 0.4 mg/dL (0.2-1.3); Total Protein 7.5 g/dL (6.3-8.2)
--- NOTE | 2023-10-26 18:19 | ED ---
General Adult HPI - General Chief complaint: Neuro Symptoms/Deficit Stated complaint: Weakness Time Seen by Provider: 10/26/23 16:19 Source: patient Mode of arrival: ambulatory Limitations: no limitations - History of Present Illness Initial comments: 73-year-old male with past history of stroke who presents emergency department reporting to ataxia. States that he has been having symptoms since Saturday however they worsened this morning at 2 AM. He got up to go to the bathroom and noted that he was significantly off-balance and kept falling to the right. The right is his weak side since his previous strokes but states that he usually does not have any issues ambulating. He denies any headaches or visual changes. No speech deficits. He has been taking his Plavix without any missed doses. No head injuries. No other alleviating, information technology program manager modifying factors - Related Data Home Medications Medication Instructions Recorded Confirmed Levothyroxine Sodium [Synthroid] 112 mcg PO DAILY 07/09/14 10/26/23 Loratadine [Claritin] 10 mg PO DAILY 07/09/14 10/26/23 Tamsulosin HCl 0.4 mg PO HS 07/09/14 10/26/23 carvediloL [Carvedilol] 6.25 mg PO BID 07/09/14 10/26/23 clonazePAM [Clonazepam] 1 mg PO HS 07/09/14 10/26/23 Budesonide/Formoterol Fumarate 2 puff INHALATION RT-BID 07/16/18 10/26/23 [Symbicort 160-4.5 Mcg Inhaler] Losartan [Cozaar] 25 mg PO DAILY 07/16/18 10/26/23 Torsemide [Demadex] 20 mg PO DAILY 07/16/18 10/26/23 Venlafaxine HCl [Effexor] 100 mg PO HS 07/16/18 10/26/23 metFORMIN HCL [Glucophage] 1,000 mg PO BID 07/16/18 10/26/23 Aspirin EC [Ecotrin Low Dose] 81 mg PO DAILY 05/24/21 10/26/23 Ipratropium-Albuterol Nebulize 3 ml INHALATION RT-DAILY PRN 05/24/21 10/26/23 [Duoneb 0.5 mg-3 mg/3 ml Soln] Potassium Chloride [Potassium 10 meq PO DAILY 05/24/21 10/26/23 Chloride ER] SUMAtriptan succinate [Imitrex] 50 mg PO DAILY PRN 05/24/21 10/26/23 Venlafaxine HCl [Effexor XR] 150 mg PO DAILY 05/24/21 10/26/23 Cholecalciferol [Vitamin D3 (125 250 mcg PO DAILY 10/26/23 10/26/23 Mcg = 5000 Iu)] Clopidogrel [Plavix] 75 mg PO DAILY 10/26/23 10/26/23 Ferrous Sulfate [Feosol] 325 mg PO DAILY 10/26/23 10/26/23 Otc Sleep Aid(Unknown) 2 tab PO HS 10/26/23 10/26/23 Previous Rx's Medication Instructions Recorded Atorvastatin [Lipitor] 80 mg PO HS 30 Days #30 tab 05/25/21 Allergies Allergy/AdvReac Type Severity Reaction Status Date / Time Iodinated Contrast Media Allergy Dyspnea Verified 10/26/23 16:18 [Iodinated Contrast Media - IV Dye] iodine Allergy Dyspnea Verified 10/26/23 16:18 Review of Systems ROS Statement: Those systems with pertinent positive or pertinent negative responses have been documented in the HPI. ROS Other: All systems not noted in ROS Statement are negative. Past Medical History Past Medical History: Heart Failure, COPD, CVA/TIA, Diabetes Mellitus, Eye Disorder, Hyperlipidemia, Hypertension, Myocardial Infarction ([place]), Pneumonia, Prostate Disorder, Thyroid Disorder Additional Past Medical History / Comment(s): JUNI CATARACTS, CVA X4-SPEECH AFFECTED,WEAKNESS RT ARM AND RT LEG. Last Myocardial Infarction Date:: UNK History of Any Multi-Drug Resistant Organisms: None Reported Past Surgical History: AICD, Heart Catheterization With Stent Additional Past Surgical History / Comment(s): HEART STENT X1,PARTIAL THYROIDECTOMY Past Anesthesia/Blood Transfusion Reactions: No Reported Reaction Additional Past Anesthesia/Blood Transfusion Reaction / Comment(s): NEVER HAD A BLOOD TRANSFUSION Date of Last Stent Placement:: 07/2014 Type of Cardiac Device: AICD Device Placement Date:: 04/2018 Past Psychological History: Depression Smoking Status: Former smoker Past Alcohol Use History: None Reported Past Drug Use History: None Reported - Past Family History Mother Family Medical History: Renal Disease Father Family Medical History: Myocardial Infarction ([place]) Brother(s) Family Medical History: CVA/TIA, Hypertension Sister(s) Additional Family Medical History / Comment(s): CABG General Exam Limitations: no limitations General appearance: alert, in no apparent distress Head exam: Present: atraumatic, normocephalic, normal inspection Eye exam: Present: normal appearance, PERRL, EOMI. Absent: scleral icterus, conjunctival injection, periorbital swelling ENT exam: Present: normal exam, mucous membranes moist Neck exam: Present: normal inspection. Absent: tenderness, meningismus, lymphadenopathy Respiratory exam: Present: normal lung sounds bilaterally. Absent: respiratory distress, wheezes, rales, rhonchi, stridor Cardiovascular Exam: Present: regular rate, normal rhythm, normal heart sounds. Absent: systolic murmur, diastolic murmur, rubs, gallop, clicks GI/Abdominal exam: Present: soft, normal bowel sounds. Absent: distended, tenderness, guarding, rebound, rigid Extremities exam: Present: normal inspection, full ROM, normal capillary refill. Absent: tenderness, pedal edema, joint swelling, calf tenderness Back exam: Present: normal inspection Neurological exam: Present: alert, oriented X3, CN II-XII intact Psychiatric exam: Present: normal affect, normal mood Skin exam: Present: warm, dry, intact, normal color. Absent: rash Course Vital Signs 10/26/23 10/26/23 10/26/23 16:14 17:02 18:00 Temperature 98 F Pulse Rate 92 76 66 Respiratory 18 18 18 Rate Blood Pressure 112/70 129/63 128/59 O2 Sat by Pulse 100 97 97 Oximetry 10/26/23 10/26/23 18:53 20:18 Temperature Pulse Rate 69 82 Respiratory 18 18 Rate Blood Pressure 116/59 121/67 O2 Sat by Pulse 98 Oximetry Medical Decision Making - Medical Decision Making Was pt. sent in by a medical professional or institution (, PA, AUTO SERVICE ADVISOR, urgent care, hospital, or jail...) When possible be specific @ -No Did you speak to anyone other than the patient for history (EMS, parent, family, police, friend...)? What history was obtained from this source @ -Spoke with the patient's Did you review nursing and triage notes (agree or disagree)? Why? @ -I reviewed and agree with nursing and triage notes Were old charts reviewed (outside hosp., previous admission, EMS record, old EKG, old radiological studies, urgent care reports/EKG's, jail records)? Report findings @ -No old charts were reviewed Differential Diagnosis (chest pain, altered mental status, abdominal pain women, abdominal pain men, vaginal bleeding, weakness, fever, dyspnea, syncope, headache, dizziness, GI bleed, back pain, seizure, CVA, palpatations, mental health, musculoskeletal)? @ -Differential CVA Ischemic stroke, hemorrhagic stroke, brain tumor, atypical migraine, Wernicke's encephalopathy, seizure, multiple sclerosis, meningitis, encephalitis, hypoglycemia, Guillain-Garvey, electrolytes disturbance, myasthenia gravis.... This is not meant to be an all-inclusive list EKG interpreted by me (3pts min.). @ -yes and demonstrates a paced rhythm with a rate of 79. [place] interval 191. QRS 142. QTC of 451. Pacemaker captures appropriately. X-rays interpreted by me (1pt min.). @ -Yes and demonstrates no acute intrathoracic process CT interpreted by me (1pt min.). @ -yes and demonstrates old stroke U/S interpreted by me (1pt. min.). @ -None done What testing was considered but not performed or refused? (CT, X-rays, U/S, labs)? Why? @ -None What meds were considered but not given or refused? Why? @ -None Did you discuss the management of the patient with other professionals (professionals i.e. , PA, AUTO SERVICE ADVISOR, lab, RT, psych nurse, social media marketer, senior software qa analyst, teacher, chief human resources officer, special education case manager)? Give summary @ -spoke with dr. dwyer for admission Was smoking cessation discussed for >3mins.? @ -No Was critical care preformed (if so, how long)? @ -No Were there social determinants of health that impacted care today? How? (Homelessness, low income, unemployed, alcoholism, drug addiction, transportation, low edu. Level, literacy, decrease access to med. care, fci, rehab)? @ -No Was there de-escalation of care discussed even if they declined (Discuss DNR or withdrawal of care, Hospice)? DNR status @ -No What co-morbidities impacted this encounter? (DM, HTN, Smoking, COPD, CAD, Cancer, CVA, ARF, Chemo, Hep., AIDS, mental health diagnosis, sleep apnea, morbid obesity)? @ -Previous CVA Was patient admitted / discharged? Hospital course, mention meds given and ro owen, prescriptions, significant lab abnormalities, going to OR and other pertinent info. @ -Admitted. Upon arrival patient was placed into room 14. Thorough history and physical exam was performed. NIH was assessed and was 0. IV is established. Laboratory studies are conducted. Patient sent for CT of his brain and CT angiography. No acute stroke present. Results are discussed with the patient. Recommended admission due to ataxia for CVA. Patient was agreeable to this. Spoke with Dr. Dwyer for admission Undiagnosed new problem with uncertain prognosis? @ -yes Drug Therapy requiring intensive monitoring for toxicity (Heparin, Nitro, Insulin, Cardizem)? @ -No Were any procedures done? @ -No Diagnosis/symptom? @ -Acute ataxia, possible CVA, history of CVA Acute, or Chronic, or Acute on Chronic? @ -acute Uncomplicated (without systemic symptoms) or Complicated (systemic symptoms)? @ -Complicated Side effects of treatment? @ -No Exacerbation, Progression, or Severe Exacerbation? @ -No Poses a threat to life or bodily function? How? (Chest pain, [place], [place], pneumonia, PE, COPD, DKA, ARF, appy, cholecystitis, CVA, Diverticulitis, Homicidal, Suicidal, threat to staff... and all critical care pts) @ -No - Lab Data Result diagrams: 10/26/23 16:53 10/26/23 16:53 Lab Results 10/26/23 10/26/23 10/26/23 Range/Units 16:53 16:53 16:53 WBC 8.0 (3.8-10.6) k/uL RBC 4.01 L (4.30-5.90) m/uL Hgb 12.0 L (13.0-17.5) gm/dL Hct 35.4 L (39.0-53.0) % MCV 88.3 (80.0-100.0) fL MCH 30.0 (25.0-35.0) pg MCHC 34.0 (31.0-37.0) g/dL RDW 13.8 (11.5-15.5) % Plt Count 229 (150-450) k/uL MPV 8.3 Neutrophils % 65 % Lymphocytes % 24 % Monocytes % 7 % Eosinophils % 2 % Basophils % 1 % Neutrophils # 5.2 (1.3-7.7) k/uL Lymphocytes # 1.9 (1.0-4.8) k/uL Monocytes # 0.5 (0-1.0) k/uL Eosinophils # 0.1 (0-0.7) k/uL Basophils # 0.1 (0-0.2) k/uL PT 10.9 (10.0-12.5) sec INR 1.0 (<1.2) APTT 24.8 (22.0-30.0) sec Sodium 137 (137-145) mmol/L Potassium 3.4 L (3.5-5.1) mmol/L Chloride 94 L (98-107) mmol/L Carbon Dioxide 29 (22-30) mmol/L Anion Gap 14 mmol/L BUN 12 (9-20) mg/dL Creatinine 0.73 (0.66-1.25) mg/dL Est GFR (CKD-EPI)AfAm >90 (>60 ml/min/1.73 sqM) Est GFR (CKD-EPI)NonAf >90 (>60 ml/min/1.73 sqM) Glucose 140 H (74-99) mg/dL Calcium 9.4 (8.4-10.2) mg/dL Total Bilirubin 0.4 (0.2-1.3) mg/dL AST 23 (17-59) U/L ALT 21 (4-49) U/L Alkaline Phosphatase 61 (38-126) U/L Creatine Kinase 68 (55-170) U/L Troponin I (0.000-0.034) ng/mL Total Protein 7.5 (6.3-8.2) g/dL Albumin 4.7 (3.5-5.0) g/dL 10/26/23 Range/Units 16:53 WBC (3.8-10.6) k/uL RBC (4.30-5.90) m/uL Hgb (13.0-17.5) gm/dL Hct (39.0-53.0) % MCV (80.0-100.0) fL MCH (25.0-35.0) pg MCHC (31.0-37.0) g/dL RDW (11.5-15.5) % Plt Count (150-450) k/uL MPV Neutrophils % % Lymphocytes % % Monocytes % % Eosinophils % % Basophils % % Neutrophils # (1.3-7.7) k/uL Lymphocytes # (1.0-4.8) k/uL Monocytes # (0-1.0) k/uL Eosinophils # (0-0.7) k/uL Basophils # (0-0.2) k/uL PT (10.0-12.5) sec INR (<1.2) APTT (22.0-30.0) sec Sodium (137-145) mmol/L Potassium (3.5-5.1) mmol/L Chloride (98-107) mmol/L Carbon Dioxide (22-30) mmol/L Anion Gap mmol/L BUN (9-20) mg/dL Creatinine (0.66-1.25) mg/dL Est GFR (CKD-EPI)AfAm (>60 ml/min/1.73 sqM) Est GFR (CKD-EPI)NonAf (>60 ml/min/1.73 sqM) Glucose (74-99) mg/dL Calcium (8.4-10.2) mg/dL Total Bilirubin (0.2-1.3) mg/dL AST (17-59) U/L ALT (4-49) U/L Alkaline Phosphatase (38-126) U/L Creatine Kinase (55-170) U/L Troponin I <0.012 (0.000-0.034) ng/mL Total Protein (6.3-8.2) g/dL Albumin (3.5-5.0) g/dL Disposition Clinical Impression: Ataxia Disposition: ADMITTED IP TO THIS [facility] Condition: Stable Is patient prescribed a controlled substance at d/c from ED?: No Time of Disposition: 20:18 Decision to Admit Reason: Admit from EC Decision Date: 10/26/23 Decision Time: 20:18
--- NOTE | 2023-10-26 18:24 | CT ---
EXAMINATION TYPE: CT brain wo con DATE OF EXAM: 10/26/2023 COMPARISON: 05/25/2021 HISTORY: 73-year-old male neurologic deficit, acute, stroke suspected, CVA TECHNIQUE: Examination was done in axial plane without intravenous contrast. Coronal and sagittal r econstructions performed. CT DLP: 1117.1 mGycm Automated exposure control for dose reduction was used. FINDINGS: There is no evidence of acute intracranial hemorrhage, acute ischemic changes, mass, mass-effect, or extra-axial fluid collection. There is no effacement of cerebral sulci or basal subarachnoid cister ns. There is no hydrocephalus. There is no midline shift. Flowers-white matter distinction is preserv ed. Mild generalized supratentorial volume loss. Old white matter infarct left saldaña radiata extending i nto the left basal ganglia region. Air-fluid level left maxillary sinus. Mastoid air cells well pneumatized. Orbits and globes are intac t. IMPRESSION: 1. Old deep white matter infarct left saldaña radiata extending into the left basal ganglia, unchanged from 2020. 2. Mild generalized atrophy. No acute intracranial abnormality seen. 3. Air-fluid level left maxillary sinus. Correlate for acute sinusitis.
--- NOTE | 2023-10-26 18:32 | CT ---
EXAMINATION TYPE: CT angio head neck DATE OF EXAM: 10/26/2023 COMPARISON: 05/24/2021 HISTORY: 73-year-old male neurologic deficit, acute, stroke suspected, cva TECHNIQUE: Contiguous axial scanning of the head and neck performed with IV Contrast, patient injecte d with 65 mL of Isovue 370. Coronal and sagittal MIP reconstructions performed. 3-D reconstructions g enerated on a dedicated independent workstation. CT DLP: 533 mGycm Automated exposure control for dose reduction was used. FINDINGS: Neck: Left-sided generator device. Mild to moderate atherosclerotic arch calcifications. Bovine configuration to the aortic arch. Mild atherosclerotic narrowing at the origin of the dominant left vertebral artery. Diminutive, nondo minant right vertebral artery. Otherwise, both vertebral arteries are patent throughout their course. Right common carotid artery is patent. Atherosclerotic calcifications of the right carotid bifurcatio n. Changes result in mild, 40% proximal right ICA stenosis by NASCET criteria. Left common carotid artery is patent. Mild atherosclerotic calcifications within the left carotid bulb. Changes result in mild, 30% proxima l left ICA stenosis. Prominent calcifications measuring up tor 5 mm within the bilateral hypertrophied palatine tonsils. HEAD: Hypoplastic right vertebral artery. Otherwise, both vertebral and basilar arteries as well as the rem ainder of the posterior circulation are patent. Scattered mild atherosclerotic calcifications within the carotid siphons without any significant narr owing. The bilateral internal carotid arteries and remainder of the anterior circulation are maintain ed. Dural venous sinuses are patent. IMPRESSION: NECK: 1. Atherosclerotic change of the bilateral carotid bifurcations with mild bilateral proximal ICA sten oses, 40% on the right and 30% on the left. No hemodynamically significant internal carotid artery st enosis on either side. 2. Dominant left vertebral artery mild atherosclerotic narrowing at its origin. 3. At least moderate bilateral palatine tonsillar hypertrophy with punctate calcification suggesting sequela of prior infection. Tonsilloliths measure up to 5 mm. Head: 4. No large vessel intracranial arterial occlusion, significant stenosis, or aneurysmal change is see n. 5. Hypoplastic right vertebral artery.
--- NOTE | 2023-10-26 18:55 | XR ---
EXAMINATION TYPE: XR chest 2V DATE OF EXAM: 10/26/2023 COMPARISON: 05/24/2021 HISTORY: 73-year-old male confusion, altered mental status TECHNIQUE: PA and lateral views FINDINGS: The heart is normal size. Atherosclerotic arch calcifications. Mild interstitial prominence is unchan ged. Left anterior chest wall ICD generator with right atrial, right ventricular, and coronary sinus leads. No consolidation or pleural effusion. IMPRESSION: Chronic changes. No acute process seen.
[2023-10-26] MEDS ORDERED: NALOXONE 0.4 MG/ML 1 ML VIAL IV PRN (20:18)
[2023-10-26] MEDS ORDERED: CLOPIDOGREL 75 MG TAB PO STA (20:19)
[2023-10-26] MEDS ORDERED: ASPIRIN 325 MG TAB PO STA (20:19)
[2023-10-26] MEDS ORDERED: IPRATROPIUM-ALBUTEROL 3 ML NEB INHALATION PRN (22:12)
[2023-10-26] MEDS ORDERED: metFORMIN 500 MG TAB PO SCH (22:15)
[2023-10-26] MEDS: TAMSULOSIN 0.4 MG CAP.ER.24H PO SCH (22:37)
[2023-10-26] MEDS: clonazePAM 1 MG TAB PO SCH (22:38)
[2023-10-26] MEDS: carvediloL 6.25 MG TAB PO SCH (22:38)
[2023-10-26] MEDS: ATORVASTATIN 80 MG TAB PO SCH (22:39)
[2023-10-26] MEDS: VENLAFAXINE HCL 50 MG TAB PO SCH (23:05)
[2023-10-27] MEDS ORDERED: DEXTROSE 50% SYRINGE 50 ML IVP PRN ×2 (00:15)
--- NOTE | 2023-10-27 00:45 | P.HPIM ---
History of Present Illness H&P Date: 10/26/23 Chief Complaint: ataxia 73 year old male with history of stroke and residual right sided weakness. he reports , ataxia since Saturday , that has been progressive and getting worse, this started suddenly , and started noticing difficulties walking and using the bathroom. denies any falls or head injury , yesterday, he started falling to the right side, while walking or sitting. again denies any headache, changes in vsion or hearing. today symptoms got worse, with slurred speech , and his brought him for evaluation denies any other focal neuro deficits. denies any history of blood clots, recent travel or hospital stay . denesi any upper respiratory illness, fever, chills, cough, nausea, vomiting, abd pain or diarrhea cardiology office notified him, that he might have some arrhythmias, and was encouraged to go to the ED. patient is not on blood thinners, no falls, he does take aspirin and plavix review of systems Pertinent positives as noted in HPI. All other systems were reviewed and are negative on exam Constitutional: No acute distress, conversant, slurred speech at times Eyes: Anicteric sclerae, moist conjunctiva, Pupils equal round reactive to light ENMT: NC/AT Oropharynx clear, no erythema, or exudates Neck: Supple, no masses, or JVD No carotid bruits No thyromegaly Lungs: Clear to auscultation Clear to percussion Normal respiratory effort, no accessory muscle use Cardiovascular: Heart regular in rate and rhythm, No murmurs, gallops, or rubs No peripheral edema Abdominal: Soft Nontender, no guarding, rebound or rigidity Abdomen moving with respiration Normoactive bowel sounds No hepatomegaly, No splenomegaly No palpable mass No abdominal wall hernia noted Extremities: No digital cyanosis No clubbing Pedal pulses intact and symmetrical Radial pulses intact and symmetrical No calf tenderness Psychiatric: Alert and oriented to person, place and time Appropriate affect fair judgement Neuro Muscles Strength 5/5 in all 4 extremities Sensation to light touch grossly present throughout Cranial nerves II-XII grossly intact Lymphatics: no palpable cervical or supraclavicular lymph nodes Past Medical History Past Medical History: Heart Failure, COPD, CVA/TIA, Diabetes Mellitus, Eye Disorder, Hyperlipidemia, Hypertension, Myocardial Infarction (CT), Pneumonia, Prostate Disorder, Thyroid Disorder Additional Past Medical History / Comment(s): JUNI CATARACTS, CVA X4-SPEECH AFFECTED,WEAKNESS RT ARM AND RT LEG. Last Myocardial Infarction Date:: UNK History of Any Multi-Drug Resistant Organisms: None Reported Past Surgical History: AICD, Heart Catheterization With Stent Additional Past Surgical History / Comment(s): HEART STENT X1,PARTIAL THYRO IDECTOMY Past Anesthesia/Blood Transfusion Reactions: No Reported Reaction Additional Past Anesthesia/Blood Transfusion Reaction / Comment(s): NEVER HAD A BLOOD TRANSFUSION Date of Last Stent Placement:: 07/2014 Type of Cardiac Device: AICD Device Placement Date:: 04/2018 Past Psychological History: Depression Smoking Status: Former smoker Past Alcohol Use History: None Reported Past Drug Use History: None Reported - Past Family History Mother Family Medical History: Renal Disease Father Family Medical History: Myocardial Infarction (CT) Brother(s) Family Medical History: CVA/TIA, Hypertension Sister(s) Additional Family Medical History / Comment(s): CABG Medications and Allergies Home Medications Medication Instructions Recorded Confirmed Type Levothyroxine Sodium [Synthroid] 112 mcg PO DAILY 07/09/14 10/26/23 History Loratadine [Claritin] 10 mg PO DAILY 07/09/14 10/26/23 History Tamsulosin HCl 0.4 mg PO HS 07/09/14 10/26/23 History carvediloL [Carvedilol] 6.25 mg PO BID 07/09/14 10/26/23 History clonazePAM [Clonazepam] 1 mg PO HS 07/09/14 10/26/23 History Budesonide/Formoterol Fumarate 2 puff INHALATION RT-BID 07/16/18 10/26/23 History [Symbicort 160-4.5 Mcg Inhaler] Losartan [Cozaar] 25 mg PO DAILY 07/16/18 10/26/23 History Torsemide [Demadex] 20 mg PO DAILY 07/16/18 10/26/23 History Venlafaxine HCl [Effexor] 100 mg PO HS 07/16/18 10/26/23 History metFORMIN HCL [Glucophage] 1,000 mg PO BID 07/16/18 10/26/23 History Aspirin EC [Ecotrin Low Dose] 81 mg PO DAILY 05/24/21 10/26/23 History Ipratropium-Albuterol Nebulize 3 ml INHALATION RT-DAILY PRN 05/24/21 10/26/23 History [Duoneb 0.5 mg-3 mg/3 ml Soln] Potassium Chloride [Potassium 10 meq PO DAILY 05/24/21 10/26/23 History Chloride ER] SUMAtriptan succinate [Imitrex] 50 mg PO DAILY PRN 05/24/21 10/26/23 History Venlafaxine HCl [Effexor XR] 150 mg PO DAILY 05/24/21 10/26/23 History Atorvastatin [Lipitor] 80 mg PO HS 30 Days #30 tab 05/25/21 10/26/23 Rx Cholecalciferol [Vitamin D3 (125 250 mcg PO DAILY 10/26/23 10/26/23 History Mcg = 5000 Iu)] Clopidogrel [Plavix] 75 mg PO DAILY 10/26/23 10/26/23 History Ferrous Sulfate [Feosol] 325 mg PO DAILY 10/26/23 10/26/23 History Otc Sleep Aid(Unknown) 2 tab PO HS 10/26/23 10/26/23 History Allergies Allergy/AdvReac Type Severity Reaction Status Date / Time Iodinated Contrast Media Allergy Dyspnea Verified 10/26/23 16:18 [Iodinated Contrast Media - IV Dye] iodine Allergy Dyspnea Verified 10/26/23 16:18 Physical Exam Vitals: Vital Signs Temp Pulse Resp BP Pulse Ox 10/26/23 23:19 67 18 123/53 10/26/23 20:18 82 18 121/67 10/26/23 18:53 69 18 116/59 98 10/26/23 18:00 66 18 128/59 97 10/26/23 17:02 76 18 129/63 97 10/26/23 16:14 98 F 92 18 112/70 100 Intake and Output 10/26/23 10/26/23 10/27/23 14:59 22:59 06:59 Other: Weight 90.718 kg Results CBC & Chem 7: 10/26/23 16:53 10/26/23 16:53 Labs: Abnormal Lab Results - Last 24 Hours (Table) 10/26/23 10/26/23 Range/Units 16:53 16:53 RBC 4.01 L (4.30-5.90) m/uL Hgb 12.0 L (13.0-17.5) gm/dL Hct 35.4 L (39.0-53.0) % Potassium 3.4 L (3.5-5.1) mmol/L Chloride 94 L (98-107) mmol/L Glucose 140 H (74-99) mg/dL Assessment and Plan Assessment: 73 year old male with history of stroke with residual right sidedweakness, coming in for worsening right sided weakness, and ataxia I discussed the case with ED doc and I accepted the admission for possible stroke patient did not receive tpa due to being outside the theraputic window with anticipated length of stay < 2 midnights right sided ataxia with history of stroke fall precautions PT evaluation neuro consult continue with aspirin and statin continue with plavix neuro consult echo in AM CT brain no acute intracranial pathology CTA head and neck and CT head , no acute intracranial finding EKG no acute ST changes, Paced rhythm neuro checks resume coreg labs reviewed , Hgb 12 , WBC 8 unremarkable ' Na 137, K 3.4, Cr0.7 unrearkable chronic conditions hypertension , controlled resume home meds DM , hold oral hypoglycemic agents , initiate insulin sliding scale hypothyroid , resume levothyroxine COPD , not on home oxygen , compensated , resume home inhalers. full code DVT PPX heparin sc tid
[2023-10-27 03:49] LABS: Glucose,Whole Blood 138 mg/dL (70-110)
[2023-10-27] MEDS: carvediloL 6.25 MG TAB PO SCH ×2 (06:44→16:42)
[2023-10-27] MEDS: LEVOTHYROXINE 112 MCG TAB PO SCH (06:44)
[2023-10-27 06:49] LABS: Glucose,Whole Blood 144 mg/dL (70-110)
[2023-10-27] MEDS: INSULIN ASPART (NovoLOG) 100 UNIT/ML VIAL SQ SCH ×4 (07:00→21:07)
[2023-10-27] MEDS: SYMBICORT 160-4.5 MCG INHALER INHALATION SCH ×2 (07:58→20:26)
[2023-10-27 08:44] LABS: Basophils % (A) 0 %; Eosinophils % (A) 0 %; HCT 35.9 % (39.0-53.0); HGB 11.6 gm/dL (13.0-17.5); Lymphocytes # (A) 1.5 k/uL (1.0-4.8); Lymphocytes % (A) 12 %; MCH 29.1 pg (25.0-35.0); MCHC 32.4 g/dL (31.0-37.0); MCV 90.1 fL (80.0-100.0); Mean Platelet Volume 8.3; Monocytes # (A) 0.5 k/uL (0-1.0); Monocytes % (A) 4 %; Neutrophils # (A) 9.7 k/uL (1.3-7.7); Neutrophils % (A) 82 %; Platelet Count 233 k/uL (150-450); RBC 3.98 m/uL (4.30-5.90); RDW 13.7 % (11.5-15.5); WBC 11.9 k/uL (3.8-10.6)
[2023-10-27] MEDS: HEPARIN SODIUM,PORCINE 5,000 UNIT/ML 1 ML VIAL SQ SCH ×2 (08:48→16:42)
[2023-10-27] MEDS: CHOLECALCIFEROL 125 MCG (5000 IU) TABLET PO SCH (08:50)
[2023-10-27] MEDS: LORATADINE 10 MG TAB PO SCH (08:50)
[2023-10-27] MEDS: POTASSIUM CHLORIDE ER 10 MEQ TAB.ER.PRT PO SCH (08:50)
[2023-10-27] MEDS: ASPIRIN 81 MG PO SCH (08:50)
[2023-10-27] MEDS: CLOPIDOGREL 75 MG TAB PO SCH (08:50)
[2023-10-27] MEDS: FERROUS SULFATE 325 MG TAB PO SCH (08:50)
[2023-10-27] MEDS: VENLAFAXINE HCL ER 150 MG CAP PO SCH (08:51)
[2023-10-27] MEDS: TAMSULOSIN 0.4 MG CAP.ER.24H PO SCH (08:51)
[2023-10-27] MEDS: LOSARTAN 50 MG TAB PO SCH (08:51)
[2023-10-27] MEDS ORDERED: TORSEMIDE 20 MG TAB PO SCH (09:00)
[2023-10-27 10:50] LABS: African American GFR (CKD) >90 (>60 ml/min/1.73 sqM); Anion Gap 16 mmol/L; Blood Urea Nitrogen 12 mg/dL (9-20); Calcium 9.2 mg/dL (8.4-10.2); Carbon Dioxide 24 mmol/L (22-30); Chloride 97 mmol/L (98-107); Glucose 129 mg/dL (74-99); Non-African American GFR(CKD) >90 (>60 ml/min/1.73 sqM); Potassium 4.1 mmol/L (3.5-5.1); Sodium 137 mmol/L (137-145)
[2023-10-27] MEDS ORDERED: SODIUM CHLORIDE 0.9% 500 ML 500 ML IV ONE (11:45)
--- NOTE | 2023-10-27 11:55 | P.PN ---
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 In the ER he underwent extensive evaluation. CT had demonstrated known prior changes as well as an air-fluid level in the left maxillary sinus. CT of the head demonstrated mild bilateral proximal ICA stenosis 40% on the right 30% on the left. Chest x- ray demonstrated no acute process. Initial labs were remarkable for potassium 3.4. Patient was admitted for intractable ataxia with the concern for possible acute CVA. Patient seen and examined at bedside. He reports he continues to have some dizziness however it is better today than yesterday. He does report a history of multiple strokes with similar symptoms as well as a history of vertigo with similar symptoms. He reports he is now able to turn his head without having significant symptoms. He denies any chest pain or shortness of breath. Vital signs reviewed General: nontoxic, no distress, appears at stated age Cardiovascular: S1S2 reg, no murmur, positive posterior tibial pulse bilateral, Lungs: CTA bilateral, no rhonchi, no rales , no accessory muscle use Abdominal: soft, nontender to palpation, no guarding, no appreciable organomegaly Ext: no gross muscle atrophy, no edema b/l lower extremities, no contractures Neuro: CN II-XI grossly intact, no focal neuro deficits, negative vaibhav-hallpike Psych: Alert, oriented, appropriate affect Assessment/Plan: Ataxia with mildly positive orthostatic blood pressures in the setting the patient with history of CVA 4 CVA with residual right sided deficits -Normal saline 500 mL bolus -Start normal saline at 50 mL/h -Stop torsemide as patient appears euvolemic - Negative [place]-Hallpike - Aspirin 81 mg daily, Plavix 75 mg daily, Lipitor 80 mg at night - tele - echo - check b12 folic acid - repeat orthostaics in AM - Await cardio and neuro recs Diabetes mellitus type II -Hold metformin -Sliding-scale insulin, follow blood sugars, check hemoglobin A1c Chronic diastolic congestive heart failure currently compensated Hypertension Dyslipidemia COPD without exacerbation Imaging: None new CTA of the head and neck demonstrated mild bilateral proximal ICA stenosis 40% on the right 30% on the left Data Review: Labs reviewed from today include CBC and basic metabolic profile which are remarkable for white blood cell count 11.9, hemoglobin 11.6 DVT prophylaxis: Heparin Anticipated discharge date: in 24-[address]: home This dictation was prepared using [employer] voice recognition software. Though every attempt is made to correct errors during dictation some may still exist. Objective - Vital Signs Vital signs: Vital Signs Temp 97.7 F 10/27/23 08:45 Pulse 78 10/27/23 11:00 Resp 17 10/27/23 11:00 BP 102/51 10/27/23 10:58 Pulse Ox 97 10/27/23 11:00 FiO2 Intake & Output 10/26/23 10/27/23 10/27/23 18:59 06:59 18:59 Weight 90.718 kg - Labs CBC & Chem 7: 10/27/23 07:49 10/27/23 07:49 Labs: Abnormal Lab Results - Last 24 Hours (Table) 10/26/23 10/26/23 10/27/23 Range/Units 16:53 16:53 03:47 WBC (3.8-10.6) k/uL RBC 4.01 L (4.30-5.90) m/uL Hgb 12.0 L (13.0-17.5) gm/dL Hct 35.4 L (39.0-53.0) % Neutrophils # (1.3-7.7) k/uL Potassium 3.4 L (3.5-5.1) mmol/L Chloride 94 L (98-107) mmol/L Creatinine (0.66-1.25) mg/dL Glucose 140 H (74-99) mg/dL POC Glucose (mg/dL) 138 H (70-110) mg/dL 10/27/23 10/27/23 10/27/23 Range/Units 06:47 07:49 07:49 WBC 11.9 H (3.8-10.6) k/uL RBC 3.98 L (4.30-5.90) m/uL Hgb 11.6 L (13.0-17.5) gm/dL Hct 35.9 L (39.0-53.0) % Neutrophils # 9.7 H (1.3-7.7) k/uL Potassium (3.5-5.1) mmol/L Chloride 97 L (98-107) mmol/L Creatinine 0.65 L (0.66-1.25) mg/dL Glucose 129 H (74-99) mg/dL POC Glucose (mg/dL) 144 H (70-110) mg/dL
[2023-10-27 12:07] LABS: Glucose,Whole Blood 124 mg/dL (70-110)
[2023-10-27] MEDS: SODIUM CHLORIDE 0.9% 1,000 ML IV SCH (12:07)
--- NOTE | 2023-10-27 13:32 | P.CRDCN ---
History of Present Illness Consult date: 10/27/23 Reason for Consult (text): Report of arrhythmia History of present illness: This is Elvis Williamson NP, I'm dictating on behalf of Dr. Garcia's H&P and A&P The patient was interviewed and examined. HPI: Patient is a pleasant 73-year-old male presented to the hospital with reports of acute ataxia with history of CVA. Patient reports that the day prior to his gait disturbance, he received a call from his cardiac monitoring agency saying that he is pacemaker monitor was alerting them of possible arrhythmia, and they asked the patient how he was feeling. At that time the patient reported he had no major issues. He does state the next day, getting up out of bed he was unable to stand up straight, and was having trouble falling to the right. He doesn't a history of CVA, with some right-sided weakness, but previously has been able to walk without issue. The patient, due to these 2 events, presented to the emergency department for evaluation. In the emergency department the patient had an EKG completed which demonstrated a paced rhythm, ventricularly paced primarily. Labs are relatively benign and noncontributory. Patient had imaging completed to evaluate for possible stroke, imaging is currently negative. Patient has a pertinent past medical history that includes congestive heart failure, COPD, CVA, diabetes, hyperlipidemia, hypertension, myocardial infarction, pneumonia, prostate disorder, and hypothyroidism. This morning upon evaluation the patient is resting comfortably in bed. He has no complaints of chest pain, shortness of breath, heart palpitations, dizziness, or syncopal feelings. He continues to report some difficulty with walking. Telemetry is noted to demonstrate a paced rhythm. ROS: [No fever, chills, or rigors] [no cough, phlegm, or expectoration] [no nausea, vomiting, or diarrhea] [no hematuria, dysuria] [no musculoskelatal complaints] [no strokes or seizures] [no skin lesions] EXAMINATION: GENERAL: Well-appearing, well-nourished and in no acute distress. NECK: Supple without JVD or thyromegaly. LUNGS: Breath sounds clear to auscultation bilaterally. Respiration equal and unlabored. No wheezes, rales or rhonchi. HEART: Regular rate and rhythm without murmurs, rubs or gallops. S1 and S2 heard. EXTREMITIES: Normal range of motion, no edema. No clubbing or cyanosis. Peripheral pulses intact and strong. REVIEW OF LABS, ECG & MEDICAL DATA: LABS: White count 11.9, hemoglobin 11.6, platelets 233, sodium 137, potassium 4.1, BUN 12, creatinine 0.65, troponin less than 0.012 EKG: Ventricularly paced rhythm IMAGING: CT of the brain dated 10/26/2023 demonstrates old deep white matter infarct left saldaña radiata extending into the left basal ganglia, unchanged from 2020, mild generalized atrophy, no acute intracranial abnormality seen, air fluid level left maxillary sinus, correlate for acute sinusitis. CT angiogram of the head and neck dated 10/26/2023 demonstrates atherosclerotic change the bilateral carotid bifurcations with mild bilateral proximal ICA stenosis, 40% on the right and 30% on the left, no hemodynamically significant internal carotid artery stenosis on either side, dominant left vertebral artery mild atherosclerotic narrowing at its origin, at least moderate bilateral Felicita and tonsillar hypertrophy with punctate calcifications suggesting sequelae of prior infection, tonsilloliths measure up to 5 mm, no large vessel intracranial arterial occlusion, significant stenosis, or aneurysmal changes seen, hypoplastic right vertebral artery. Chest x-ray dated 10/26/2023 shows chronic changes, no acute process seen. VITALS: Temp 97.7, pulse 65, respirations 17, blood pressure 116/63, O2 saturation 99% on room air IMPRESSION: 1. Acute ataxia, of unknown origin 2. Report of arrhythmia by cardiology office 3. History CVA 4. History of Bi-V ICD placement PLAN: Interrogate pacemaker. Pacemaker is a [employer] biventricular ICD. Continue home medications as previously prescribed. Continue evaluation and management with neurology team. Further recommendations based on patient's clinical course. Thank you for the consult and allowing us to participate in the care of this patient. Past Medical History Past Medical History: Heart Failure, COPD, CVA/TIA, Diabetes Mellitus, Eye Disorder, Hyperlipidemia, Hypertension, Myocardial Infarction (AR), Pneumonia, Prostate Disorder, Thyroid Disorder Additional Past Medical History / Comment(s): JUNI CATARACTS, CVA X4-SPEECH AFFECTED,WEAKNESS RT ARM AND RT LEG. Last Myocardial Infarction Date:: UNK History of Any Multi-Drug Resistant Organisms: None Reported Past Surgical History: AICD, Heart Catheterization With Stent Additional Past Surgical History / Comment(s): HEART STENT X1,PARTIAL THYROIDECTOMY Past Anesthesia/Blood Transfusion Reactions: No Reported Reaction Additional Past Anesthesia/Blood Transfusion Reaction / Comment(s): NEVER HAD A BLOOD TRANSFUSION Date of Last Stent Placement:: 07/2014 Type of Cardiac Device: AICD Device Placement Date:: 04/2018 Past Psychological History: Depression Smoking Status: Former smoker Past Alcohol Use History: None Reported Past Drug Use History: None Reported - Past Family History Mother Family Medical History: Renal Disease Father Family Medical History: Myocardial Infarction (AR) Brother(s) Family Medical History: CVA/TIA, Hypertension Sister(s) Additional Family Medical History / Comment(s): CABG Medications and Allergies Home Medications Medication Instructions Recorded Confirmed Type Levothyroxine Sodium [Synthroid] 112 mcg PO DAILY 07/09/14 10/26/23 History Loratadine [Claritin] 10 mg PO DAILY 07/09/14 10/26/23 History Tamsulosin HCl 0.4 mg PO HS 07/09/14 10/26/23 History carvediloL [Carvedilol] 6.25 mg PO BID 07/09/14 10/26/23 History clonazePAM [Clonazepam] 1 mg PO HS 07/09/14 10/26/23 History Budesonide/Formoterol Fumarate 2 puff INHALATION RT-BID 07/16/18 10/26/23 History [Symbicort 160-4.5 Mcg Inhaler] Losartan [Cozaar] 25 mg PO DAILY 07/16/18 10/26/23 History Torsemide [Demadex] 20 mg PO DAILY 07/16/18 10/26/23 History Venlafaxine HCl [Effexor] 100 mg PO HS 07/16/18 10/26/23 History metFORMIN HCL [Glucophage] 1,000 mg PO BID 07/16/18 10/26/23 History Aspirin EC [Ecotrin Low Dose] 81 mg PO DAILY 05/24/21 10/26/23 History Ipratropium-Albuterol Nebulize 3 ml INHALATION RT-DAILY PRN 05/24/21 10/26/23 History [Duoneb 0.5 mg-3 mg/3 ml Soln] Potassium Chloride [Potassium 10 meq PO DAILY 05/24/21 10/26/23 History Chloride ER] SUMAtriptan succinate [Imitrex] 50 mg PO DAILY PRN 05/24/21 10/26/23 History Venlafaxine HCl [Effexor XR] 150 mg PO DAILY 05/24/21 10/26/23 History Atorvastatin [Lipitor] 80 mg PO HS 30 Days #30 tab 05/25/21 10/26/23 Rx Cholecalciferol [Vitamin D3 (125 250 mcg PO DAILY 10/26/23 10/26/23 History Mcg = 5000 Iu)] Clopidogrel [Plavix] 75 mg PO DAILY 10/26/23 10/26/23 History Ferrous Sulfate [Feosol] 325 mg PO DAILY 10/26/23 10/26/23 History Otc Sleep Aid(Unknown) 2 tab PO HS 10/26/23 10/26/23 History Allergies Allergy/AdvReac Type Severity Reaction Status Date / Time Iodinated Contrast Media Allergy Dyspnea Verified 10/26/23 16:18 [Iodinated Contrast Media - IV Dye] iodine Allergy Dyspnea Verified 10/26/23 16:18 Physical Exam Vitals: Vital Signs Temp Pulse Resp BP BP BP BP 10/27/23 13:20 97.9 F 76 18 128/57 10/27/23 11:00 78 17 10/27/23 10:58 102/51 10/27/23 10:57 118/67 10/27/23 10:56 130/69 10/27/23 10:05 76 18 128/68 10/27/23 08:45 97.7 F 65 17 116/63 10/27/23 07:00 81 17 107/72 10/27/23 06:00 62 18 113/59 10/27/23 05:18 80 18 113/59 10/27/23 05:00 72 17 100/53 10/27/23 04:00 66 15 93/61 10/27/23 03:00 74 16 105/57 10/27/23 02:00 53 L 15 113/60 10/27/23 01:20 56 L 18 166/63 10/27/23 01:00 68 18 118/54 10/27/23 00:00 81 22 108/55 10/26/23 23:19 67 18 123/53 10/26/23 23:00 68 18 127/77 10/26/23 22:00 46 L 17 122/63 10/26/23 21:00 77 10 L 119/67 10/26/23 20:18 82 18 121/67 10/26/23 20:00 72 19 125/68 10/26/23 19:00 67 18 116/59 10/26/23 18:53 69 18 116/59 10/26/23 18:00 66 18 123/56 10/26/23 17:02 76 18 129/63 10/26/23 17:00 76 28 H 10/26/23 16:35 26 H 10/26/23 16:14 98 F 92 18 112/70 Pulse Ox 10/27/23 13:20 97 10/27/23 11:00 97 10/27/23 10:58 10/27/23 10:57 10/27/23 10:56 10/27/23 10:05 98 10/27/23 08:45 99 10/27/23 07:00 10/27/23 06:00 10/27/23 05:18 10/27/23 05:00 10/27/23 04:00 10/27/23 03:00 10/27/23 02:00 10/27/23 01:20 10/27/23 01:00 10/27/23 00:00 10/26/23 23:19 10/26/23 23:00 10/26/23 22:00 10/26/23 21:00 10/26/23 20:18 10/26/23 20:00 10/26/23 19:00 10/26/23 18:53 98 10/26/23 18:00 97 10/26/23 17:02 97 10/26/23 17:00 10/26/23 16:35 10/26/23 16:14 100 Intake and Output 10/26/23 10/27/23 10/27/23 22:59 06:59 14:59 Other: Weight 90.718 kg Results 10/27/23 07:49 10/27/23 07:49 Cardiac Enzymes 10/26/23 10/26/23 Range/Units 16:53 16:53 AST 23 (17-59) U/L Troponin I <0.012 (0.000-0.034) ng/mL Coagulation 10/26/23 Range/Units 16:53 PT 10.9 (10.0-12.5) sec APTT 24.8 (22.0-30.0) sec CBC 10/26/23 10/27/23 Range/Units 16:53 07:49 WBC 8.0 11.9 H (3.8-10.6) k/uL RBC 4.01 L 3.98 L (4.30-5.90) m/uL Hgb 12.0 L 11.6 L (13.0-17.5) gm/dL Hct 35.4 L 35.9 L (39.0-53.0) % Plt Count 229 233 (150-450) k/uL Comprehensive Metabolic Panel 10/26/23 10/27/23 Range/Units 16:53 07:49 Sodium 137 137 (137-145) mmol/L Potassium 3.4 L 4.1 (3.5-5.1) mmol/L Chloride 94 L 97 L (98-107) mmol/L Carbon Dioxide 29 24 (22-30) mmol/L BUN 12 12 (9-20) mg/dL Creatinine 0.73 0.65 L (0.66-1.25) mg/dL Glucose 140 H 129 H (74-99) mg/dL Calcium 9.4 9.2 (8.4-10.2) mg/dL AST 23 (17-59) U/L ALT 21 (4-49) U/L Alkaline Phosphatase 61 (38-126) U/L Total Protein 7.5 (6.3-8.2) g/dL Albumin 4.7 (3.5-5.0) g/dL Current Medications Generic Name Dose Route Start Last Admin Trade Name Freq PRN Reason Stop Dose Admin Albuterol/Ipratropium 3 ml 10/26/23 22:12 Ipratropium-Albuterol 3 Ml Neb INHALATION RT-DAILY PRN Shortness Of Breath Aspirin 81 mg 10/27/23 09:00 10/27/23 08:50 Aspirin 81 Mg PO 81 mg DAILY SHOAIB Administration Atorvastatin Calcium 80 mg 10/26/23 22:15 10/26/23 22:39 Atorvastatin 80 Mg Tab PO 80 mg HS SHOAIB Administration Budesonide/Formoterol Fumarate 2 puff 10/27/23 08:00 10/27/23 07:58 Symbicort 160-4.5 Mcg Inhaler INHALATION Not Given RT-BID [facility] Carvedilol 6.25 mg 10/26/23 22:15 10/27/23 06:44 Carvedilol 6.25 Mg Tab PO 6.25 mg BID-W/MEALS SHOAIB Administration Cholecalciferol 250 mcg 10/27/23 09:00 10/27/23 08:50 Cholecalciferol 125 Mcg (5000 Iu) Tablet PO 250 mcg DAILY SHOAIB Administration Clonazepam 1 mg 10/26/23 22:15 10/26/23 22:38 Clonazepam 1 Mg Tab PO 1 mg HS SHOAIB Administration Clopidogrel Bisulfate 75 mg 10/27/23 09:00 10/27/23 08:50 Clopidogrel 75 Mg Tab PO 75 mg DAILY SHOAIB Administration Dextrose/Water 25 ml 10/27/23 00:15 Dextrose 50% Syringe 50 Ml IVP PER PROTOCOL PRN Hypoglycemia Protocol Dextrose/Water 50 ml 10/27/23 00:15 Dextrose 50% Syringe 50 Ml IVP PER PROTOCOL PRN Hypoglycemia Protocol Ferrous Sulfate 325 mg 10/27/23 09:00 10/27/23 08:50 Ferrous Sulfate 325 Mg Tab PO 325 mg DAILY SHOAIB Administration Heparin Sodium (Porcine) 5,000 unit 10/27/23 08:00 10/27/23 08:48 Heparin Sodium,Porcine 5,000 Unit/Ml 1 Ml Vial SQ 5,000 unit Q8HR SHOAIB Administration Sodium Chloride 1,000 mls @ 50 mls/hr 10/27/23 11:45 10/27/23 12:07 Saline 0.9% IV 50 mls/hr .Q20H SHOAIB Administration Insulin Aspart 0 unit 10/27/23 07:30 10/27/23 12:07 Insulin Aspart (Novolog) 100 Unit/Ml Vial SQ Not Given ACHS SHOAIB Protocol Levothyroxine Sodium 112 mcg 10/27/23 07:00 10/27/23 06:44 Levothyroxine 112 Mcg Tab PO 112 mcg DAILY@0700 SHOAIB Administration Loratadine 10 mg 10/27/23 09:00 10/27/23 08:50 Loratadine 10 Mg Tab PO 10 mg DAILY SHOAIB Administration Losartan Potassium 25 mg 10/27/23 09:00 10/27/23 08:51 Losartan 50 Mg Tab PO 25 mg DAILY SHOAIB Administration Naloxone HCl 0.2 mg 10/26/23 20:18 Naloxone 0.4 Mg/Ml 1 Ml Vial IV Q2M PRN Opioid Reversal Potassium Chloride 10 meq 10/27/23 09:00 10/27/23 08:50 Potassium Chloride Er 10 Meq Tab.Er.Prt PO 10 meq DAILY SHOAIB Administration Venlafaxine HCl 100 mg 10/26/23 22:15 10/26/23 23:05 Venlafaxine Hcl 50 Mg Tab PO 100 mg HS SHOAIB Administration Venlafaxine HCl 150 mg 10/27/23 09:00 10/27/23 08:51 Venlafaxine Hcl Er 150 Mg Cap PO 150 mg DAILY SHOAIB Administration Intake and Output 10/26/23 10/27/23 10/27/23 22:59 06:59 14:59 Other: Weight 90.718 kg 10/27/23 07:49 10/27/23 07:49
[2023-10-27 16:31] LABS: Glucose,Whole Blood 109 mg/dL (70-110)
[2023-10-27] MEDS: CYANOCOBALAMIN 1,000 MCG/ML 1 ML VIAL IM SCH (16:41)
[2023-10-27 20:26] LABS: Glucose,Whole Blood 155 mg/dL (70-110)
[2023-10-27] MEDS: ATORVASTATIN 80 MG TAB PO SCH (21:08)
[2023-10-27] MEDS: clonazePAM 1 MG TAB PO SCH (21:08)
[2023-10-27] MEDS: VENLAFAXINE HCL 50 MG TAB PO SCH (21:09)
[2023-10-28] MEDS: HEPARIN SODIUM,PORCINE 5,000 UNIT/ML 1 ML VIAL SQ SCH ×3 (00:02→16:35)
[2023-10-28 06:01] LABS: Glucose,Whole Blood 125 mg/dL (70-110)
[2023-10-28] MEDS: INSULIN ASPART (NovoLOG) 100 UNIT/ML VIAL SQ SCH ×4 (06:01→21:24)
[2023-10-28] MEDS: carvediloL 6.25 MG TAB PO SCH ×2 (06:27→16:35)
[2023-10-28] MEDS: LEVOTHYROXINE 112 MCG TAB PO SCH (06:27)
[2023-10-28] MEDS: SODIUM CHLORIDE 0.9% 1,000 ML IV SCH (06:28)
[2023-10-28] MEDS: SYMBICORT 160-4.5 MCG INHALER INHALATION SCH ×2 (08:13→21:37)
[2023-10-28] MEDS: CYANOCOBALAMIN 1,000 MCG/ML 1 ML VIAL IM SCH (08:19)
[2023-10-28] MEDS: CHOLECALCIFEROL 125 MCG (5000 IU) TABLET PO SCH (08:19)
[2023-10-28] MEDS: ASPIRIN 81 MG PO SCH (08:19)
[2023-10-28] MEDS: CLOPIDOGREL 75 MG TAB PO SCH (08:19)
[2023-10-28] MEDS: LOSARTAN 50 MG TAB PO SCH (08:19)
[2023-10-28] MEDS: LORATADINE 10 MG TAB PO SCH (08:19)
[2023-10-28] MEDS: POTASSIUM CHLORIDE ER 10 MEQ TAB.ER.PRT PO SCH (08:19)
[2023-10-28] MEDS: FERROUS SULFATE 325 MG TAB PO SCH (08:19)
[2023-10-28] MEDS: VENLAFAXINE HCL ER 150 MG CAP PO SCH (08:20)
--- NOTE | 2023-10-28 08:51 | P.CNNES ---
History of Present Illness Consult date: 10/27/23 Requesting physician: Sharmila Baltazar Reason for Consult: Ataxia, history of CVA History of Present Illness: Patient is a 73-year-old right-handed male with history of hypertension, diabetes, multiple stroke/TIA, came to the hospital yesterday at 4:12 PM for dizziness. Patient states that last Saturday and Saturday, 10/22/2023 and 10/23/2023, he was really dizzy, lightheaded head in a cloud. He was not feeling right. He also received a call from his doctor's office that his heart monitoring in his pacemaker was abnormal. 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 When he walked, he felt his right leg wanted to go sideways and has to help hold onto the wall to go to the bathroom. He could not stand to urinate. He has to sit down on the toilet seat and even then felt that he will fall to the side. His called his primary physician Dr. Simons, who recommended patient to come to the hospital. He felt that he was going to have a stroke and speech was worse than baseline. The symptoms lasted 10 Saturday afternoon. He now feels back to baseline. He does have some intermittent dizziness when he bends over or turns his head fast, but is there for a long time, not new symptom. Patient states 7 he turns his head from side to the front, he feels dizzy, as his eyes move slower. His leg feels fine now. Vital signs on arrival blood pressure 112/70, pulse rate 92, temperature 98.0. Blood test shows normal WBC, hemoglobin 12.0, platelets 229, PT/PTT normal, sodium normal potassium 3.4, normal renal functions, normal hepatic panel, troponin. CT head showed old deep white matter infarct left saldaña radiata ext ending into the left basal ganglia, unchanged from 2020. Mild generalized atrophy. No acute intracranial abnormality seen. Air fluid level left maxillary sinus. Correlate for acute sinusitis. I personally reviewed CT head, and agree with the findings. Chest x-ray showed chronic changes with no acute process. EKG with electronic ventricular pacemaker. Patient takes levothyroxine, clonazepam 1 mg at bedtime, tamsulosin 0.4 mg, Coreg, Demadex, metformin, losartan, Effexor ex are 150 mg daily and Effexor 100 mg at bedtime, aspirin 81 mg, Imitrex as needed, potassium, Lipitor 80 mg, vitamin D, iron and Plavix 75 mg. Patient has history of stroke affecting his right side of the body in November 2006. He had a second stroke in October 2007, each of them also affected the right side. As a residual effect, he states that his right arm and legs get tired easily. And also his speech gets slurred when he gets tired. Patient has history of diabetes for 10 years, hypertension. He has smoked < 1 pack per day for 52 years, quit couple years ago. Denies any alcohol use. He does have h istory of migraines, takes Imitrex as needed, but has not taken Imitrex for couple years. He used to get bad headaches and used to throw up. Review of Systems Constitutional: Denies chills, Denies fever Eyes: denies blurred vision, denies diplopia, denies pain Ears: deny: decreased hearing, ear discharge Ears, nose, mouth and throat: Denies headache, Denies sore throat, Denies ve rtigo Cardiovascular: Reports lightheadedness, Denies chest pain, Denies shortness of breath Respiratory: Denies cough, Denies excessive sputum Gastrointestinal: Denies abdominal pain, Denies diarrhea, Denies nausea, Denies vomiting Genitourinary: Denies incontinence, Denies urinary frequency Musculoskeletal: Denies low back pain, Denies myalgias, Denies neck pain Integumentary: Denies pruritus, Denies rash Neurological: Reports as per HPI Psychiatric: Denies anxiety, Denies depression Hematologic/Lymphatic: Reports easy bruising, Denies easy bleeding Past Medical History Past Medical History: Heart Failure, COPD, CVA/TIA, Diabetes Mellitus, Eye Disorder, Hyperlipidemia, Hypertension, Myocardial Infarction ([place]), Pneumonia, Prostate Disorder, Thyroid Disorder Additional Past Medical History / Comment(s): JUNI CATARACTS, CVA X4-SPEECH AFFECTED,WEAKNESS RT ARM AND RT LEG. Last Myocardial Infarction Date:: UNK History of Any Multi-Drug Resistant Organisms: None Reported Past Surgical History: AICD, Heart Catheterization With Stent Additional Past Surgical History / Comment(s): HEART STENT X1,PARTIAL THYROIDECTOMY Past Anesthesia/Blood Transfusion Reactions: No Reported Reaction Additional Past Anesthesia/Blood Transfusion Reaction / Comment(s): NEVER HAD A BLOOD TRANSFUSION Date of Last Stent Placement:: 07/2014 Type of Cardiac Device: AICD Device Placement Date:: 04/2018 Past Psychological History: Depression Smoking Status: Former smoker Past Alcohol Use History: None Reported Past Drug Use History: None Reported - Past Family History Mother Family Medical History: Renal Disease Father Family Medical History: Myocardial Infarction ([place]) Brother(s) Family Medical History: CVA/TIA, Hypertension Sister(s) Additional Family Medical History / Comment(s): CABG Medications and Allergies Home Medications Medication Instructions Recorded Confirmed Type Levothyroxine Sodium [Synthroid] 112 mcg PO DAILY 07/09/14 10/26/23 History Loratadine [Claritin] 10 mg PO DAILY 07/09/14 10/26/23 History Tamsulosin HCl 0.4 mg PO HS 07/09/14 10/26/23 History carvediloL [Carvedilol] 6.25 mg PO BID 07/09/14 10/26/23 History clonazePAM [Clonazepam] 1 mg PO HS 07/09/14 10/26/23 History Budesonide/Formoterol Fumarate 2 puff INHALATION RT-BID 07/16/18 10/26/23 History [Symbicort 160-4.5 Mcg Inhaler] Losartan [Cozaar] 25 mg PO DAILY 07/16/18 10/26/23 History Torsemide [Demadex] 20 mg PO DAILY 07/16/18 10/26/23 History Venlafaxine HCl [Effexor] 100 mg PO HS 07/16/18 10/26/23 History metFORMIN HCL [Glucophage] 1,000 mg PO BID 07/16/18 10/26/23 History Aspirin EC [Ecotrin Low Dose] 81 mg PO DAILY 05/24/21 10/26/23 History Ipratropium-Albuterol Nebulize 3 ml INHALATION RT-DAILY PRN 05/24/21 10/26/23 History [Duoneb 0.5 mg-3 mg/3 ml Soln] Potassium Chloride [Potassium 10 meq PO DAILY 05/24/21 10/26/23 History Chloride ER] SUMAtriptan succinate [Imitrex] 50 mg PO DAILY PRN 05/24/21 10/26/23 History Venlafaxine HCl [Effexor XR] 150 mg PO DAILY 05/24/21 10/26/23 History Atorvastatin [Lipitor] 80 mg PO HS 30 Days #30 tab 05/25/21 10/26/23 Rx Cholecalciferol [Vitamin D3 (125 250 mcg PO DAILY 10/26/23 10/26/23 History Mcg = 5000 Iu)] Clopidogrel [Plavix] 75 mg PO DAILY 10/26/23 10/26/23 History Ferrous Sulfate [Feosol] 325 mg PO DAILY 10/26/23 10/26/23 History Otc Sleep Aid(Unknown) 2 tab PO HS 10/26/23 10/26/23 History Allergies Allergy/AdvReac Type Severity Reaction Status Date / Time Iodinated Contrast Media Allergy Dyspnea Verified 10/26/23 16:18 [Iodinated Contrast Media - IV Dye] iodine Allergy Dyspnea Verified 10/26/23 16:18 Physical Examination - Vital Signs Vital Signs: Vital Signs Temp Pulse Resp BP BP BP BP 10/27/23 13:20 97.9 F 76 18 128/57 10/27/23 11:00 78 17 10/27/23 10:58 102/51 10/27/23 10:57 118/67 10/27/23 10:56 130/69 10/27/23 10:05 76 18 128/68 10/27/23 08:45 97.7 F 65 17 116/63 10/27/23 07:00 81 17 107/72 10/27/23 06:00 62 18 113/59 10/27/23 05:18 80 18 113/59 10/27/23 05:00 72 17 100/53 10/27/23 04:00 66 15 93/61 10/27/23 03:00 74 16 105/57 10/27/23 02:00 53 L 15 113/60 10/27/23 01:20 56 L 18 166/63 10/27/23 01:00 68 18 118/54 10/27/23 00:00 81 22 108/55 10/26/23 23:19 67 18 123/53 10/26/23 23:00 68 18 127/77 10/26/23 22:00 46 L 17 122/63 10/26/23 21:00 77 10 L 119/67 10/26/23 20:18 82 18 121/67 12/23/23 20:00 72 19 125/68 10/26/23 19:00 67 18 116/59 10/26/23 18:53 69 18 116/59 10/26/23 18:00 66 18 123/56 10/26/23 17:02 76 18 129/63 10/26/23 17:00 76 28 H 10/26/23 16:35 26 H 10/26/23 16:14 98 F 92 18 112/70 Pulse Ox 10/27/23 13:20 97 10/27/23 11:00 97 10/27/23 10:58 10/27/23 10:57 10/27/23 10:56 10/27/23 10:05 98 10/27/23 08:45 99 10/27/23 07:00 10/27/23 06:00 10/27/23 05:18 10/27/23 05:00 10/27/23 04:00 10/27/23 03:00 10/27/23 02:00 10/27/23 01:20 10/27/23 01:00 10/27/23 00:00 10/26/23 23:19 10/26/23 23:00 10/26/23 22:00 10/26/23 21:00 10/26/23 20:18 10/26/23 20:00 10/26/23 19:00 10/26/23 18:53 98 10/26/23 18:00 97 10/26/23 17:02 97 10/26/23 17:00 10/26/23 16:35 10/26/23 16:14 100 Patient is an elderly male, very pleasant, in no acute distress. Patient is alert awake oriented to time place and person. Speech is mildly dysarthric, which he claims is baseline and language functions are normal. Patient can name and repeat very well. Attention, concentration and fund of knowledge is adequate. On cranial nerve examination, pupils are equal, round and reacting to light, visual franklin are full on confrontation, with no neglect on double simultaneous stimulation. Extraocular muscles are intact with no nystagmus. Face is symmetric, tongue protrudes to the midline. Palatal elevation and sensation normal, hearing and shoulder shrug normal, facial sensation normal. On muscle strength testing, there is mild drift right upper extremity, but no pronation. The muscle strength is normal in arms and legs distally and proximally, except hip flexion, which is 4+5-right side, 5 on the left hip flexion. Deep tendon reflexes are symmetric 1+ at the biceps, 1+ brachioradialis, 2 at th e knees, 2 ankles and plantars downgoing bilaterally. Sensory to touch is equal with no neglect on double simultaneous stimulation. Cerebellar function showed no ataxia for [id number] testing, although patient is tremulous only on the right side. Patient has ataxia for [id number] testing only of the right lower extremity, but not the left. Tone and bulk of muscles normal. Patient has mild tremor of left upper extremity of outstretched hands. Gait deferred.. On general examination, there is no carotid bruit or murmur, S1-S2 audible. Chest is clear on consultation. Abdomen is soft nontender. No organomegaly, bowel sounds present. Peripheral pulses are present. No peripheral edema. Results - Laboratory Findings CBC and BMP: 10/27/23 07:49 10/27/23 07:49 Abnormal Lab Findings: Abnormal Labs 10/26/23 10/26/23 10/27/23 16:53 16:53 03:47 WBC RBC 4.01 L Hgb 12.0 L Hct 35.4 L Neutrophils # Potassium 3.4 L Chloride 94 L Creatinine Glucose 140 H POC Glucose (mg/dL) 138 H 10/27/23 10/27/23 10/27/23 06:47 07:49 07:49 WBC 11.9 H RBC 3.98 L Hgb 11.6 L Hct 35.9 L Neutrophils # 9.7 H Potassium Chloride 97 L Creatinine 0.65 L Glucose 129 H POC Glucose (mg/dL) 144 H 10/27/23 12:06 WBC RBC Hgb Hct Neutrophils # Potassium Chloride Creatinine Glucose POC Glucose (mg/dL) 124 H Assessment and Plan Assessment: * Possible stroke/TIA, manifesting with transient worsening of baseline right leg numbness and weakness, that resolved in about 10 hours. * History of stroke in November 2006, October 2007, both also affecting right side, with residual right-sided weakness and slurring (only when tired) * Hypertension * Diabetes * X tobacco use * Pacemaker Plan: * Patient has presented with probable TIA. Patient's symptoms are back to baseline. * MRI cannot be performed due to pacemaker. * CTA of neck showed atherosclerotic change of bilateral carotid bifurcations, with mild bilateral proximal ICA stenosis, 40% on the right and 30% on the left. No hemodynamically significant ICA stenosis on either side. Dominant left vertebral artery, with mild atherosclerotic narrowing at its origin. * CTA of head showed no large vessel intracranial arterial occlusion, sign ificant stenosis or aneurysmal change. Hypoplastic right vertebral artery. * Cardiology on board, performing pacemaker interrogation to rule out arrhythmia/PAF. * We will also suggest transesophageal echocardiogram to rule out embolic source. * Patient has vitamin B12 deficiency, with a level of 221. We will start vitamin B12 1000 g IM daily for 3 days. * Await folate level, hemoglobin A1c. * Patient's last lipid panel from 02/08/2023 revealed cholesterol 124, LDL 45, HDL 42, triglycerides 180. Continue Lipitor 80 mg daily (home dose). * Patient had this possible TIA, despite being on dual antiplatelet medication with Aspirin 81 mg and Plavix and 5 mg daily. These will be continued, pending above workup. * PT, OT, speech therapy * DVT prophylaxis: Continue heparin 5000 units subcu every 8 hours. * Neurology will follow. Thank you for the consult Time with Patient: Greater than 30
--- NOTE | 2023-10-28 11:41 | P.PN ---
Subjective Progress Note Date: 10/28/23 Patient is a 73-year-old male with a history of CVA 4 with resultant right- sided weakness, congestive heart failure with most recent ejection fraction 55- 60% with prior AICD in place, diabetes, hypertension, and dyslipidemia who presented to the hospital due to worsening ataxia and weakness. In the ER he underwent extensive evaluation. CT had demonstrated known prior changes as well as an air-fluid level in the left maxillary sinus. CT of the head demonstrated mild bilateral proximal ICA stenosis 40% on the right 30% on the left. Chest x- ray demonstrated no acute process. Initial labs were remarkable for potassium 3.4. Patient was admitted for intractable ataxia with the concern for possible acute CVA. Orthostats were positive. He was bolused NS 500 cc and started on NS at 50 cc/hr. Cardiology and Neurology consulted, recommended pacemaker interrogation and JANNIE to rule out embolic source, replace B12. 10/28 Patient was seen and examined. He continues to report dizziness and unsteadiness, leaning towards the right side. Worse with changes in position. Vital signs reviewed General: no distress, appears at stated age Derm: warm, dry Eyes: EOMI, no lid lag, anicteric sclera ENT: Nose and ears atraumatic Cardiovascular: S1S2 reg, no murmur Lungs: clear to auscultation bilateral, no rhonchi, no rales, no wheeze, no accessory muscle use Ext: no gross muscle atrophy, no contractures Neuro: no focal neuro deficits Psych: Alert, oriented, appropriate affect Based on my assessment of this patient, this patient meets a moderate complexity level of care. Patient has an acute complaint of ataxia and dizziness which poses a threat to life or bodily function. Ataxia with mildly positive orthostatic blood pressures in the setting the patient with history of CVA 4: Orthostats +. Continue NS at 50 cc/hr. Unable MRI due to pacemaker. Neurochecks. Telemetry monitoring. Neurology recommending JANNIE. Cardiology recommending pacemaker interrogation. Low-normal B12: Vitamin B12 1000 mcg IM QD. CVA with residual right sided deficits Diabetes mellitus type II: ISS. Accuchecks ACHS. Hypoglycemic precautions. Chronic diastolic congestive heart failure currently compensated Hypertension Dyslipidemia COPD without exacerbation CODE STATUS: FULL CODE DVT Prophylaxis: Heparin SQ GI Prophylaxis: Designated medical POA if patient is not able to make medical decisions for themselves: I have reviewed the following residential solar sales consultant notes: Cardiology and Neurology note. I have reviewed the results of the following tests: I have ordered the following tests: I have discussed the care of this patient with the following independent historian: at bedside. I have independently interpreted the following test below: I have discussed the management of this patient with the following physician: Objective - Vital Signs Vital signs: Vital Signs Temp 97.8 F 10/28/23 08:15 Pulse 74 10/28/23 08:15 Resp 17 10/28/23 08:15 BP 105/62 10/28/23 08:15 Pulse Ox 96 10/28/23 08:15 FiO2 Intake & Output 10/27/23 10/28/23 10/28/23 18:59 06:59 18:59 Intake Total 120 540 240 Balance 120 540 240 Weight 90.718 kg Intake: Oral 120 540 240 Other: Voiding Method Toilet # Voids 1 1 - Labs CBC & Chem 7: 10/27/23 07:49 10/27/23 07:49 Labs: Abnormal Lab Results - Last 24 Hours (Table) 10/27/23 10/27/23 10/28/23 Range/Units 12:06 20:16 05:59 POC Glucose (mg/dL) 124 H 155 H 125 H (70-110) mg/dL
--- NOTE | 2023-10-28 13:19 | P.PN ---
Subjective Progress Note Date: 10/28/23 The patient is a 73-year-old male who presented to the hospital with acute onset of ataxia. He does have history of a prior CVA. He follows with Dr. Ramsey/Rola in [facility]. Device interrogation was performed and no atrial arrhythmia was noted. He states he is feeling better and ambulating around his room without dizziness or lightheadedness. GENERAL: Well-appearing, well-nourished and in no acute distress. NECK: Supple without JVD or thyromegaly. LUNGS: Breath sounds clear to auscultation bilaterally. Respiration equal and unlabored. No wheezes, rales or rhonchi. HEART: Regular rate and rhythm without murmurs, rubs or gallops. S1 and S2 heard. EXTREMITIES: Normal range of motion, no edema. No clubbing or cyanosis. Peripheral pulses intact and strong. TELEMETRY: Paced rhythm IMPRESSION: Acute ataxia, unknown origin History of cardiac arrhythmia History of CVA History of biventricular ICD placement PLAN: Continue current cardiac medication regimen including dual antiplatelet therapy Outpatient follow-up with primary wire tinner in the next one week I am dictating on behalf of Dr Lio Garcia's history/physical and assessment/plan. Objective - Vital Signs Vital signs: Vital Signs Temp 97.8 F 10/28/23 08:15 Pulse 82 10/28/23 11:58 Resp 16 10/28/23 11:58 BP 135/61 10/28/23 11:58 Pulse Ox 95 10/28/23 11:58 FiO2 Intake & Output 10/27/23 10/28/23 10/28/23 18:59 06:59 18:59 Intake Total 120 540 240 Balance 120 540 240 Weight 90.718 kg Intake: Oral 120 540 240 Other: Voiding Method Toilet # Voids 1 1 - Labs CBC & Chem 7: 10/27/23 07:49 10/27/23 07:49 Labs: Abnormal Lab Results - Last 24 Hours (Table) 10/27/23 10/28/23 Range/Units 20:16 05:59 POC Glucose (mg/dL) 155 H 125 H (70-110) mg/dL
[2023-10-28 13:55] LABS: Glucose,Whole Blood 88 mg/dL (70-110)
[2023-10-28] MEDS: AMOXIC-POT CLAV 875-125MG 1 EACH TAB PO SCH ×2 (14:06→21:23)
[2023-10-28 16:30] LABS: Glucose,Whole Blood 98 mg/dL (70-110)
--- NOTE | 2023-10-28 17:01 | P.PN ---
Subjective Progress Note Date: 10/28/23 Patient was seen for a follow-up. Patient is sitting comfortably in the bed. Patient states that he continues to feel dizzy when he lifts his head up, or turns his head fast, or if he gets up too fast. Also gets dizzy when he bends over. Patient says that he still has head pressure. He took a shower and afterwards he sat on the toilet seat to put the pants on and he almost fell over to the right. Objective - Vital Signs Vital signs: Vital Signs Temp 97.8 F 10/28/23 08:15 Pulse 82 10/28/23 11:58 Resp 16 10/28/23 11:58 BP 135/61 10/28/23 11:58 Pulse Ox 95 10/28/23 11:58 FiO2 Intake & Output 10/27/23 10/28/23 10/28/23 18:59 06:59 18:59 Intake Total 120 540 240 Balance 120 540 240 Weight 90.718 kg Intake: Oral 120 540 240 Other: Voiding Method Toilet # Voids 1 1 - Exam Patient's examination remains unchanged. - Labs CBC & Chem 7: 10/27/23 07:49 10/27/23 07:49 Labs: Abnormal Lab Results - Last 24 Hours (Table) 10/27/23 10/28/23 10/28/23 Range/Units 20:16 05:59 07:42 POC Glucose (mg/dL) 155 H 125 H (70-110) mg/dL Hemoglobin A1c 6.1 H (<=6.0) % Assessment and Plan Assessment: * Possible stroke/TIA, manifesting with transient worsening of baseline right leg numbness and weakness, that resolved in about 10 hours. * History of stroke in November 2006, October 2007, both also affecting right side, with residual right-sided weakness and slurring (only when tired) * Dizziness, lightheadedness, likely from peripheral vestibular dysfunction. * Acute left maxillary sinusitis with air fluid level. Patient's dizziness likely from labyrinthine dysfunction. * Hypertension * Diabetes * X tobacco use * Vitamin B12 deficiency * Pacemaker Plan: * Patient has presented with probable TIA. Patient's symptoms are back to baseline. * MRI cannot be performed due to pacemaker. * CTA of neck showed atherosclerotic change of bilateral carotid bifurcations, with mild bilateral proximal ICA stenosis, 40% on the right and 30% on the left. No hemodynamically significant ICA stenosis on either side. Dominant left vertebral artery, with mild atherosclerotic narrowing at its origin. * CTA of head showed no large vessel intracranial arterial occlusion, significant stenosis or aneurysmal change. Hypoplastic right vertebral artery. * Cardiology on board. Per nursing report, she was told by cardiology, that pacemaker interrogation did not reveal any bouts of PAF. * We will also suggest transesophageal echocardiogram to rule out embolic source. * Patient has vitamin B12 deficiency, with a level of 221. We will start vitamin B12 1000 g IM daily for 3 days. * Await folate level, hemoglobin A1c 6.1. * Patient's last lipid panel from 02/08/2023 revealed cholesterol 124, LDL 45, HDL 42, triglycerides 180. Continue Lipitor 80 mg daily (home dose). * Patient had this possible TIA, despite being on dual antiplatelet medication with Aspirin 81 mg and Plavix and 5 mg daily. These will be continued, pending above workup. * PT, OT, speech therapy * DVT prophylaxis: Continue heparin 5000 units subcu every 8 hours.
[2023-10-28 19:58] LABS: Glucose,Whole Blood 199 mg/dL (70-110)
[2023-10-28] MEDS: ATORVASTATIN 80 MG TAB PO SCH (21:23)
[2023-10-28] MEDS: VENLAFAXINE HCL 50 MG TAB PO SCH (21:24)
[2023-10-28] MEDS: clonazePAM 1 MG TAB PO SCH (21:24)
[2023-10-29] MEDS: HEPARIN SODIUM,PORCINE 5,000 UNIT/ML 1 ML VIAL SQ SCH ×3 (00:09→16:52)
[2023-10-29] MEDS: SODIUM CHLORIDE 0.9% 1,000 ML IV SCH (02:24)
[2023-10-29 02:57] VITALS: RESP 18
[2023-10-29 06:08] LABS: Glucose,Whole Blood 114 mg/dL (70-110)
[2023-10-29] MEDS: INSULIN ASPART (NovoLOG) 100 UNIT/ML VIAL SQ SCH ×3 (06:17→16:52)
[2023-10-29] MEDS: SYMBICORT 160-4.5 MCG INHALER INHALATION SCH (08:51)
--- NOTE | 2023-10-29 10:37 | P.PN ---
Subjective Progress Note Date: 10/29/23 PROGRESS NOTE The patient is a 73-year-old male with a prior history of cardiomyopathy status post bi-V ICD implant who presented with ataxia. He has a prior history of stroke. He is doing well this morning, he denied any chest discomfort, dizziness or palpitations. He denies any nausea or vomiting. He is in sinus mechanism. He was evaluated by neurology service and JANNIE was requested. The patient follows on a regular basis with Dr. Benjamin regarding her cardiac status. Medications: Aspirin, carvedilol 6.25 mg twice a day, Plavix 75 mg daily, losartan 25 mg daily, Effexor PHYSICAL EXAMINATION: Blood pressure 132/70 heart rate 70 LUNGS: Clear to auscultation HEART: Regular rate and rhythm, S1, S2. No S3. Systolic ejection murmur ABDOMEN: Soft, nontender, no organomegaly EXTREMETIES: No edema LAB: Hemoglobin A1c 6.1 IMPRESSION: 1. Ataxia was possible TIA 2. History of stroke in 2006 3. Status post bi-V ICD for cardiomyopathy with improvement of systolic function according to patient 4. History of hypertension 5. Hyperlipidemia PLAN: 1. Continue present therapy 2. Proceed with JANNIE 3. Risks and complications discussed with the patient and his 4. Depending on the results of the testing further recommendations will be made Objective - Vital Signs Vital signs: Vital Signs Temp 97.7 F 10/29/23 07:54 Pulse 70 10/29/23 08:00 Resp 18 10/29/23 08:00 BP 132/71 10/29/23 07:54 Pulse Ox 98 10/29/23 07:54 FiO2 Intake & Output 10/28/23 10/29/23 10/29/23 18:59 06:59 18:59 Intake Total 720 Balance 720 Weight 88.6 kg Intake: Oral 720 Other: Voiding Method Toilet Toilet Toilet # Voids 2 - Labs CBC & Chem 7: 10/27/23 07:49 10/27/23 07:49 Labs: Abnormal Lab Results - Last 24 Hours (Table) 10/28/23 10/28/23 10/29/23 Range/Units 07:42 19:57 06:06 POC Glucose (mg/dL) 199 H 114 H (70-110) mg/dL Hemoglobin A1c 6.1 H (<=6.0) %
[2023-10-29] MEDS: CLOPIDOGREL 75 MG TAB PO SCH (10:59)
[2023-10-29] MEDS: ASPIRIN 81 MG PO SCH (10:59)
[2023-10-29] MEDS: FERROUS SULFATE 325 MG TAB PO SCH (10:59)
[2023-10-29] MEDS: LORATADINE 10 MG TAB PO SCH (10:59)
[2023-10-29] MEDS: LOSARTAN 50 MG TAB PO SCH (10:59)
[2023-10-29] MEDS: POTASSIUM CHLORIDE ER 10 MEQ TAB.ER.PRT PO SCH (10:59)
[2023-10-29] MEDS: LEVOTHYROXINE 112 MCG TAB PO SCH (10:59)
[2023-10-29] MEDS: carvediloL 6.25 MG TAB PO SCH (10:59)
[2023-10-29] MEDS: VENLAFAXINE HCL ER 150 MG CAP PO SCH (11:00)
[2023-10-29] MEDS: CHOLECALCIFEROL 125 MCG (5000 IU) TABLET PO SCH (11:00)
[2023-10-29] MEDS: AMOXIC-POT CLAV 875-125MG 1 EACH TAB PO SCH (11:00)
[2023-10-29] MEDS: CYANOCOBALAMIN 1,000 MCG/ML 1 ML VIAL IM SCH (11:01)
[2023-10-29 11:05] VITALS: TEMP 97.4
[2023-10-29] MEDS ORDERED: fentaNYL (PF) 50 MCG/ML 2 ML AMP ONE (11:09)
[2023-10-29] MEDS: BENZOCAINE SPRAY 1 CAN MUCOUS MEM ONE ×2 (11:25→11:41)
[2023-10-29] MEDS ORDERED: IV FLUID CONTINUATION 1,000 ML IV ONE (11:30)
[2023-10-29] MEDS ORDERED: MIDAZOLAM 2 MG/2 ML VIAL IVP ONE (11:42)
[2023-10-29] MEDS ORDERED: fentaNYL (PF) 50 MCG/1 ML VIAL IVP ONE (11:42)
--- NOTE | 2023-10-29 11:55 | P.DS ---
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 In the ER he underwent extensive evaluation. CT had demonstrated known prior changes as well as an air-fluid level in the left maxillary sinus. CT of the head demonstrated mild bilateral proximal ICA stenosis 40% on the right 30% on the left. Chest x- ray demonstrated no acute process. Initial labs were remarkable for potassium 3.4. Patient was admitted for intractable ataxia with the concern for possible acute CVA. Orthostats were positive 10/27. He was bolused NS 500 cc and started on NS at 50 cc/hr. Cardiology and Neurology consulted, recommended pacemaker interrogation and JANNIE to rule out embolic source, replace B12. Orthostats were negative 10/28. He continued to feel dizzy with changes in positions. Per Cardiology, interrogation of AICD did not reveal any arrhythmias. PT and OT recommends discharge home. Plans for discharge home today or tomorrow if symptoms improved and doing well after JANNIE. 10/29 Patient was seen and examined. Improved dizziness with slow positional changes. Patient would prefer to go home. Plans for JANNIE today. Pertinent studies include Brain CT, CTA head and neck, CXR, EKG. Vital signs reviewed General: no distress, appears at stated age Derm: warm, dry Eyes: EOMI, no lid lag, anicteric sclera ENT: Nose and ears atraumatic Cardiovascular: S1S2 reg, no murmur Lungs: clear to auscultation bilateral, no rhonchi, no rales, no wheeze, no accessory muscle use Ext: no gross muscle atrophy, no contractures Neuro: no focal neuro deficits Psych: Alert, oriented, appropriate affect Discharge Diagnosis: Ataxia with mildly positive orthostatic blood pressures in the setting the patient with history of CVA 4: Orthostats initially positive, now negative. Patient advised slow positional changes. Unable MRI due to pacemaker. Plans for JANNIE today. Low-normal B12: Vitamin B12 1000 mcg IM QD. CVA with residual right sided deficits: ASA 81 mg PO QD. Plavix 75 mg PO QD. Lip itor 80 mg PO QHS. Diabetes mellitus type II: A1c 6.1. ISS. Accuchecks ACHS. Hypoglycemic precautions. Continue Metformin at home. Chronic diastolic congestive heart failure currently compensated Hypertension: Coreg 6.25 mg PO BID. Dyslipidemia: Lipitor as above. COPD without exacerbation: Symbicort INH BID. DuoNeb PRN for SOB/wheezing. This complex discharge took 35 minutes to complete. Patient Condition at Discharge: Stable Plan - Discharge Summary Discharge Rx Participant: No New Discharge Prescriptions: No Action Levothyroxine Sodium [Synthroid] 112 mcg PO DAILY Loratadine [Claritin] 10 mg PO DAILY clonazePAM [Clonazepam] 1 mg PO HS Tamsulosin HCl 0.4 mg PO HS carvediloL [Carvedilol] 6.25 mg PO BID Torsemide [Demadex] 20 mg PO DAILY Budesonide/Formoterol Fumarate [Symbicort 160-4.5 Mcg Inhaler] 2 puff INHALATION RT-BID metFORMIN HCL [Glucophage] 1,000 mg PO BID Losartan [Cozaar] 25 mg PO DAILY Venlafaxine HCl [Effexor] 100 mg PO HS Ipratropium-Albuterol Nebulize [Duoneb 0.5 mg-3 mg/3 ml Soln] 3 ml INHALATION RT-DAILY PRN PRN Reason: Shortness Of Breath Venlafaxine HCl [Effexor XR] 150 mg PO DAILY Aspirin EC [Ecotrin Low Dose] 81 mg PO DAILY Atorvastatin [Lipitor] 80 mg PO HS 30 Days #30 tab Cholecalciferol [Vitamin D3 (125 Mcg = 5000 Iu)] 250 mcg PO DAILY Ferrous Sulfate [Feosol] 325 mg PO DAILY Otc Sleep Aid(Unknown) 2 tab PO HS SUMAtriptan succinate [Imitrex] 50 mg PO DAILY PRN PRN Reason: Migraine Headache Potassium Chloride [Potassium Chloride ER] 10 meq PO DAILY Clopidogrel [Plavix] 75 mg PO DAILY Discharge Medication List Levothyroxine Sodium [Synthroid] 112 mcg PO DAILY 07/09/14 [History] Loratadine [Claritin] 10 mg PO DAILY 07/09/14 [History] Tamsulosin HCl 0.4 mg PO HS 07/09/14 [History] carvediloL [Carvedilol] 6.25 mg PO BID 07/09/14 [History] clonazePAM [Clonazepam] 1 mg PO HS 07/09/14 [History] Budesonide/Formoterol Fumarate [Symbicort 160-4.5 Mcg Inhaler] 2 puff INHALATION RT-BID 07/16/18 [History] Losartan [Cozaar] 25 mg PO DAILY 07/16/18 [History] Torsemide [Demadex] 20 mg PO DAILY 07/16/18 [History] Venlafaxine HCl [Effexor] 100 mg PO HS 07/16/18 [History] metFORMIN HCL [Glucophage] 1,000 mg PO BID 07/16/18 [History] Aspirin EC [Ecotrin Low Dose] 81 mg PO DAILY 05/24/21 [History] Ipratropium-Albuterol Nebulize [Duoneb 0.5 mg-3 mg/3 ml Soln] 3 ml INHALATION RT-DAILY PRN 05/24/21 [History] Potassium Chloride [Potassium Chloride ER] 10 meq PO DAILY 05/24/21 [History] SUMAtriptan succinate [Imitrex] 50 mg PO DAILY PRN 05/24/21 [History] Venlafaxine HCl [Effexor XR] 150 mg PO DAILY 05/24/21 [History] Atorvastatin [Lipitor] 80 mg PO HS 30 Days #30 tab 05/25/21 [Rx] Cholecalciferol [Vitamin D3 (125 Mcg = 5000 Iu)] 250 mcg PO DAILY 10/26/23 [History] Clopidogrel [Plavix] 75 mg PO DAILY 10/26/23 [History] Ferrous Sulfate [Feosol] 325 mg PO DAILY 10/26/23 [History] Otc Sleep Aid(Unknown) 2 tab PO HS 10/26/23 [History] Follow up Appointment(s)/Referral(s): Wali Bloom MD [Primary Care Provider] - 1-2 days
--- NOTE | 2023-10-29 11:59 | P.PCN ---
Date of Procedure: 10/29/23 Description of Procedure: Indication: TIA Procedure Description: After explaining the procedure to the patient, it's risk and complications, blood pressure, heart rate and O2 saturation were monitored. The throat was sprayed with Cetacaine. Patient received 2 mg intravenous Versed, 50 mcg intravenous fentanyl. The probe was introduced into the esophagus without difficulty. Images were obtained. Following that, the probe was removed. There was no immediate complication. Findings: Left atrial size is moderately dilated, left atrial appendage is normal. Left ventricular size and systolic function are normal. A wire was noted in the right atrium and right ventricle. The aortic valve revealed fibrocalcific changes with preserved opening. Mitral valve revealed mild thickening of the leaflets. Tricuspid valve appears to be normal. Descending thoracic aorta reveals mild atherosclerotic changes. No pericardial effusion was noted. Contrast bubble study revealed no shunting across the interatrial septum with Valsalva maneuver. Doppler: Pulse wave and color Doppler were obtained, and revealed mild tricuspid with mild to moderate aortic and moderate mitral regurgitation. There was no shunting across the intra-atrial septum. Conclusion: 1. Mildly dilated left atrium with normal appearance of the left atrial appendage 2. Normal ventricle size and systolic function 3. Moderate mitral regurgitation 4. Mild to moderate aortic regurgitation 5. No shunting across the interatrial septum
[2023-10-29] MEDS ORDERED: TORSEMIDE 20 MG TAB PO SCH (12:00)
[2023-10-29 12:32] LABS: Glucose,Whole Blood 120 mg/dL (70-110)
--- NOTE | 2023-10-29 13:00 | CA ---
Transthoracic Echo Report Name: Alex Cuba Age: 73 Gender: M : 1950 Exam Date: 10/29/2023 11:17 Exam Location: [facility] Ht (in): 69 Wt (lb): 200 Ordering Physician: Arina López MD Attending/Referring Phys: Demand Equipment Repairer Brady Recinos Procedure CPT: Indications: Recurrent stroke/TIA Cardiac Hx: Technical Quality: Fair Contrast 1: Total Dose (mL): Contrast 2: Total Dose (mL): MEASUREMENTS (Male / Female) Normal Values 2D ECHO LV Diastolic Diameter PLAX 4.7 cm 4.2 - 5.9 / 3.9 - 5.3 cm LV Systolic Diameter PLAX 3.6 cm IVS Diastolic Thickness 1.0 cm 0.6 - 1.0 / 0.6 - 0.9 cm LVPW Diastolic Thickness 1.1 cm 0.6 - 1.0 / 0.6 - 0.9 cm LV Relative Wall Thickness 0.5 RV Internal Dim ED PLAX 2.5 cm LVOT Diameter 2.3 cm Aortic Root Diameter 3.0 cm LA Systolic Diameter LX 2.5 cm 3.0 - 4.0 / 2.7 - 3.8 cm LV Diastolic Volume MOD BP 100.6 cm??? 67 - 155 / 56 - 104 cm??? LV Systolic Volume MOD BP 33.9 cm??? - 58 / 19 - 49 cm??? LV Ejection Fraction MOD BP 66.3 % >= 55 % LV Cardiac Index MOD BP 2199.0 cm???/min???m??? LV Diastolic Volume MOD 4C 117.4 cm??? LV Systolic Volume MOD 4C 38.2 cm??? LV Ejection Fraction MOD 4C 67.5 % LV Cardiac Index MOD 4C 2610.2 cm???/min???m??? LV Diastolic Length 4C 7.3 cm LV Systolic Length 4C 5.8 cm LV Diastolic Volume MOD 2C 79.0 cm??? LV Systolic Volume MOD 2C 29.1 cm??? LV Ejection Fraction MOD 2C 63.2 % LV Cardiac Index MOD 2C 1644.7 cm???/min???m??? LV Diastolic Length 2C 6.7 cm LV Systolic Length 2C 5.6 cm LA Volume 42.5 cm??? 18 - 58 / 22 - 52 cm??? LA Volume Index 20.0 cm???/m??? 16 - 28 cm???/m??? DOPPLER AV Peak Velocity 154.5 cm/s AV Peak Gradient 9.6 mmHg AI Peak Velocity 379.3 cm/s AI Peak Gradient 57.5 mmHg AI Pressure Half Time 782.3 ms LVOT Peak Velocity 107.9 cm/s LVOT Peak Gradient 4.7 mmHg LVOT Velocity Time Integral 20.0 cm LVOT Stroke Volume 82.0 cm??? LVOT Stroke Volume Index 39.7 ml/m??? LVOT Cardiac Index 2703.4 cm???/min???m??? AV Area Cont Eq pk 2.9 cm??? MV Peak Velocity 147.1 cm/s MV Peak Gradient 8.7 mmHg MV Mean Velocity 94.9 cm/s MV Mean Gradient 4.1 mmHg MV Velocity Time Integral 52.2 cm MR Peak Velocity 551.3 cm/s MR Peak Gradient 121.6 mmHg Mitral E Point Velocity 111.7 cm/s Mitral A Point Velocity 116.0 cm/s Mitral E to A Ratio 1.0 MV Deceleration Time 181.9 ms MV E' Velocity 4.9 cm/s Mitral E to MV E' Ratio 23.0 TR Peak Velocity 212.7 cm/s TR Peak Gradient 18.1 mmHg Right Ventricular Systolic Press 23.3 mmHg PV Peak Velocity 80.8 cm/s PV Peak Gradient 2.6 mmHg FINDINGS Left Ventricle Normal LV size and wall thickness. Left ventricular ejection fraction is estimated at 50-55 %. Right Ventricle Normal right ventricular size. Catheter/pacemaker wire in the right ventricular cavity. Right Atrium Normal right atrial size. Left Atrium Normal left atrial size. LA volue index= 21ml/m2 Mitral Valve Anterior leaflet bowing best visualized in apical 4 chamber views. Moderate to severe MR. Aortic Valve Trileaflet aortic valve. Mild AC calcification. Severe AI. Tricuspid Valve Tricuspid valve not well visualized. Trace to mild TR. Pulmonic Valve Pulmonic valve not well visualized. No pulmonic regurgitation. Pericardium Normal pericardium. Aorta Normal size aortic root. CONCLUSIONS Left ventricular ejection fraction 50-55% Moderate to severe mitral regurgitation Severe aortic insufficiency Mild tricuspid regurgitation Previewed by: Dr. Ivan Paulson DO (Electronically Signed) Final Date: 29 October 2023 12:59
[2023-10-29 16:11] VITALS: BP 121/75; PULSE 77
[2023-10-29 16:44] LABS: Glucose,Whole Blood 153 mg/dL (70-110)
[2023-10-29] MEDS ORDERED: TICAGRELOR 90 MG TAB PO SCH (21:00)
--- NOTE | 2023-10-30 00:48 | P.PN ---
Subjective Progress Note Date: 10/29/23 Patient was seen for a follow-up. Patient states that he feels little better. When he tries to get up, he has to wait for a second and he goes slow. His speech is slightly slurred. Telemetry monitoring showing V-paced rhythm in the 50s. Objective - Vital Signs Vital signs: Vital Signs Temp 97.4 F L 10/29/23 10:57 Pulse 68 10/29/23 14:00 Resp 18 10/29/23 14:00 BP 145/72 10/29/23 12:40 Pulse Ox 95 10/29/23 12:40 FiO2 Intake & Output 10/28/23 10/29/23 10/29/23 18:59 06:59 18:59 Intake Total 720 150 Balance 720 150 Weight 88.6 kg Intake: IV 150 Oral 720 Other: Voiding Method Toilet Toilet Toilet # Voids 2 - Exam Patient's examination remains unchanged. Speech is slightly slurred. Cranial nerves are normal. On muscle strength testing, there is mild right upper extremity drift but no pronation. The strength is normal. Sensory touch is equal with no neglect. No ataxia. - Labs CBC & Chem 7: 10/27/23 07:49 10/27/23 07:49 Labs: Abnormal Lab Results - Last 24 Hours (Table) 10/28/23 10/29/23 10/29/23 Range/Units 19:57 06:06 12:29 POC Glucose (mg/dL) 199 H 114 H 120 H (70-110) mg/dL Assessment and Plan Assessment: * Possible stroke/TIA, manifesting with transient worsening of baseline right leg numbness and weakness, that resolved in about 10 hours. * History of stroke in November 2006, October 2007, both also affecting right side, with residual right-sided weakness and slurring (only when tired) * Dizziness, lightheadedness, likely from peripheral vestibular dysfunction. * Acute left maxillary sinusitis with air fluid level. Patient's dizziness likely from labyrinthine dysfunction. * Hypertension * Diabetes * X tobacco use * Vitamin B12 deficiency * Pacemaker Plan: * Patient has presented with probable TIA. Patient's symptoms are back to [facility]. * MRI cannot be performed due to pacemaker. * CTA of neck showed atherosclerotic change of bilateral carotid bifurcations, with mild bilateral proximal ICA stenosis, 40% on the right and 30% on the left. No hemodynamically significant ICA stenosis on either side. Dominant left vertebral artery, with mild atherosclerotic narrowing at its origin. * CTA of head showed no large vessel intracranial arterial occlusion, significant stenosis or aneurysmal change. Hypoplastic right vertebral arter y. * Cardiology on board. Per nursing report, she was told by cardiology, that pacemaker interrogation did not reveal any bouts of PAF. * Routine 2-D echo revealed normal left ventricular EF 50-55%. Moderate to severe MR. Severe aortic insufficiency. Mild TR. Left atrial size is normal. * Transesophageal echocardiogram: 1. Mildly dilated left atrium with normal appearance of the left atrial appendage 2. Normal ventricle size and systolic function 3. Moderate mitral regurgitation 4. Mild to moderate aortic regurgitation 5. No shunting across the interatrial septum * Patient has vitamin B12 deficiency, with a level of 221. We will start vitamin B12 1000 g IM daily for 3 days. Patient will continue vitamin B12 1000 g orally daily outpatient. * Await folate level, hemoglobin A1c 6.1. * Patient's last lipid panel from 02/08/2023 revealed cholesterol 124, LDL 45, HDL 42, triglycerides 180. Continue Lipitor 80 mg daily (home dose). * Patient had this possible TIA, despite being on dual antiplatelet medication with Aspirin 81 mg and Plavix 75 mg daily. We will switch from Plavix to prevent a 90 mg twice a day, as patient has failed Plavix. * PT, OT, speech therapy * Neurologically clear for discharge. * Patient will follow with cardiology, neurology and primary physician.
== END 2023-10-29 17:17 | disposition home or self-care (01) ==
LOC: EC 16:12 → 3SCARD 20:19
PROVIDERS: ADMIT Internal Medicine; ATTEND Internal Medicine
DX: R53.1 Weakness (principal); D49.6 Neoplasm of unspecified behavior of brain; E03.9 Hypothyroidism, unspecified; E11.10 Type 2 diabetes mellitus with ketoacidosis without coma; E51.2 Wernicke's encephalopathy; E53.8 Deficiency of other specified B group vitamins; E78.5 Hyperlipidemia, unspecified; F32.A Depression, unspecified; F17.200 Nicotine dependence, unspecified, uncomplicated; G43.009 Migraine without aura, not intractable, without status migrainosus; G70.00 Myasthenia gravis without (acute) exacerbation; I11.0 Hypertensive heart disease with heart failure; I25.10 Atherosclerotic heart disease of native coronary artery without angina pectoris; I50.32 Chronic diastolic (congestive) heart failure; I65.23 Occlusion and stenosis of bilateral carotid arteries; I69.351 Hemiplegia and hemiparesis following cerebral infarction affecting right dominant side; J44.0 Chronic obstructive pulmonary disease with (acute) lower respiratory infection; Z79.02 Long term (current) use of antithrombotics/antiplatelets; Z79.51 Long term (current) use of inhaled steroids; Z79.82 Long term (current) use of aspirin; Z79.84 Long term (current) use of oral hypoglycemic drugs; Z79.890 Hormone replacement therapy; Z82.49 Family history of ischemic heart disease and other diseases of the circulatory system; Z95.5 Presence of coronary angioplasty implant and graft; Z95.810 Presence of automatic (implantable) cardiac defibrillator
CPT/HCPCS: 96361; 96372 ×4; 96374; 96375 ×3; 99285; 36415; 94640 ×3; 93005; 93312; 93320; 93306; 93325; 97162; 82747; 80053; 80048; 82607; 82550; 84484; 85025 ×2; 85610; 85730; 83036; 71046; 70496; 70450; 70498; G0378 ×4; J2250; J1200; J3420 ×3; J1644 ×3; J2930; J3490; Q9967; J3010

== ENCOUNTER → 2023-12-04 | Outpatient (CLI) | payer MEDICARE ==
[2023-12-04 12:54] LABS: Partial Thromboplastin Time 25.5 sec (22.0-30.0); Prothrombin Time 10.6 sec (10.0-12.5)
[2023-12-04 16:01] LABS: HCT 35.8 % (39.6-50.0); HGB 11.1 g/dL (13.0-17.0); MCH 27.6 pg (27.0-32.0); MCV 89.1 FL (80.0-97.0); Mean Platelet Volume 11.2 FL (9.5-12.2); NRBC Per 100 WBC 0 X 10*3/uL (0.00-0.01); Platelet Count 264 X 10*3/uL (140-440); RBC 4.02 X 10*6/uL (4.40-5.60); RDW 14.4 % (11.5-14.5); WBC 8.39 X 10*3/uL (4.50-10.00)
[2023-12-04 16:11] LABS: BUN/Creat Ratio 14.56 Ratio (12.00-20.00); Blood Urea Nitrogen 13.1 mg/dL (9.0-27.0); Calcium 10.3 mg/dL (8.7-10.3); Carbon Dioxide 28.3 mmol/L (21.6-31.8); Chloride 97 mmol/L (96-109); Glucose 109 mg/dL (70-110); Potassium 4.3 mmol/L (3.5-5.5); Sodium 138 mmol/L (135-145)
== END | disposition home or self-care (01) ==
LOC: LABWHC1 10:37
PROVIDERS: ATTEND Internal Medicine Cardiovascular Disease
DX: Z01.812 Encounter for preprocedural laboratory examination (principal); I25.5 Ischemic cardiomyopathy; R06.02 Shortness of breath
CPT/HCPCS: 36415; 80048; 85027; 85610; 85730

== ENCOUNTER → 2024-01-01 | Outpatient (CLI) | payer MEDICARE ==
[2024-01-01 12:18] LABS: Partial Thromboplastin Time 25.3 sec (22.0-30.0); Prothrombin Time 10.8 sec (10.0-12.5)
[2024-01-01 15:51] LABS: HCT 35.3 % (39.6-50.0); HGB 11.2 g/dL (13.0-17.0); MCH 26.6 pg (27.0-32.0); MCHC 31.7 g/dL (32.0-37.0); MCV 83.8 FL (80.0-97.0); Mean Platelet Volume 10.7 FL (9.5-12.2); NRBC Per 100 WBC 0 X 10*3/uL (0.00-0.01); Platelet Count 228 X 10*3/uL (140-440); RBC 4.21 X 10*6/uL (4.40-5.60); RDW 14.7 % (11.5-14.5); WBC 7.14 X 10*3/uL (4.50-10.00)
== END | disposition home or self-care (01) ==
LOC: LABWHC1 10:53
PROVIDERS: ATTEND Psychiatry & Neurology Neurology
DX: Z01.812 Encounter for preprocedural laboratory examination (principal); I35.0 Nonrheumatic aortic (valve) stenosis; E11.40 Type 2 diabetes mellitus with diabetic neuropathy, unspecified; Z86.73 Personal history of transient ischemic attack (TIA), and cerebral infarction without residual deficits; Z79.899 Other long term (current) drug therapy
CPT/HCPCS: 36415; 80048; 82607; 83036; 85027; 85610; 85730

== ENCOUNTER → 2024-01-02 | Outpatient (CLI) | payer MEDICARE ==
[2024-01-02 16:43] LABS: ALT 21 U/L (4-49); AST 22 U/L (17-59); African American GFR (CKD) >90 (>60 ml/min/1.73 sqM); Albumin 4.9 g/dL (3.5-5.0); Albumin/Globulin Ratio 1.8; Alkaline Phosphatase 63 U/L (38-126); Anion Gap 7 mmol/L; Blood Urea Nitrogen 20 mg/dL (9-20); Calcium 9.8 mg/dL (8.4-10.2); Carbon Dioxide 33 mmol/L (22-30); Chloride 100 mmol/L (98-107); Globulin 2.8 g/dL; Glucose 104 mg/dL (74-99); Non-African American GFR(CKD) 87 (>60 ml/min/1.73 sqM); Potassium 4.1 mmol/L (3.5-5.1); Sodium 140 mmol/L (137-145); Total Bilirubin 0.4 mg/dL (0.2-1.3); Total Protein 7.7 g/dL (6.3-8.2)
== END | disposition home or self-care (01) ==
LOC: LABWHC1 15:55
PROVIDERS: ATTEND Psychiatry & Neurology Neurology
DX: Z01.810 Encounter for preprocedural cardiovascular examination (principal); I35.0 Nonrheumatic aortic (valve) stenosis
CPT/HCPCS: 36415; 80053

== ENCOUNTER → 2024-04-09 | Outpatient (CLI) | payer MEDICARE ==
[2024-04-09 16:03] LABS: HCT 36.1 % (39.6-50.0); HGB 11.1 g/dL (13.0-17.0); MCH 26.1 pg (27.0-32.0); MCHC 30.7 g/dL (32.0-37.0); MCV 84.9 FL (80.0-97.0); Mean Platelet Volume 11.7 FL (9.5-12.2); NRBC Per 100 WBC 0 X 10*3/uL (0.00-0.01); Platelet Count 215 X 10*3/uL (140-440); RBC 4.25 X 10*6/uL (4.40-5.60); RDW 16.6 % (11.5-14.5); WBC 6.38 X 10*3/uL (4.50-10.00)
[2024-04-09 16:25] LABS: C Reactive Protein, High Sens 0.878 mg/L (0.000-3.000); Chol/HDL Ratio 2.55 Ratio; LDL Cholesterol,Calculated 67.2 mg/dL (0.0-131.0)
[2024-04-09 16:57] LABS: Vitamin B12 >3600.0 pg/mL (200.0-944.0)
[2024-04-09 17:43] LABS: ALT 23 U/L (10-49); AST 20 U/L (14-35); Albumin 4.6 g/dL (3.8-4.9); Albumin/Globulin Ratio 1.84 Ratio (1.60-3.17); Alkaline Phosphatase 87 U/L (41-126); Bilirubin, Conjugated <0.20 mg/dL (0.20-0.40); Bilirubin,Unconjugated >0.10 mg/dL (0.20-1.00); Blood Urea Nitrogen 15.3 mg/dL (9.0-27.0); Calcium 9.8 mg/dL (8.7-10.3); Carbon Dioxide 25.9 mmol/L (21.6-31.8); Chloride 98 mmol/L (96-109); Globulin 2.5 g/dL (1.6-3.3); Glucose 98 mg/dL (70-110); Potassium 3.8 mmol/L (3.5-5.5); Sodium 140 mmol/L (135-145); Total Bilirubin 0.3 mg/dL (0.3-1.2); Total Protein 7.1 g/dL (6.2-8.2)
== END | disposition home or self-care (01) ==
LOC: LABWHC1 10:32
PROVIDERS: ATTEND Internal Medicine Cardiovascular Disease
DX: I11.9 Hypertensive heart disease without heart failure (principal); I25.119 Atherosclerotic heart disease of native coronary artery with unspecified angina pectoris; E11.40 Type 2 diabetes mellitus with diabetic neuropathy, unspecified; E78.2 Mixed hyperlipidemia; Z95.2 Presence of prosthetic heart valve; Z86.73 Personal history of transient ischemic attack (TIA), and cerebral infarction without residual deficits; Z79.899 Other long term (current) drug therapy
CPT/HCPCS: 36415; 80053; 80061; 82248; 82607; 83036; 85027; 86141

== ENCOUNTER 2025-05-19 07:57 | Day surgery (SDC) | payer MEDICARE ==
[2025-05-18 13:45] VITALS: BMI 28.0
[~2025-05-19 07:57] MED LIST changes: -LIDOCAINE 1% (10MG/ML) FOR IV START INTRADERMA PRN; -PROPOFOL 10 MG/ML 20 ML VIAL IV ONE
[2025-05-19 08:28] VITALS: TEMP 97.4
[2025-05-19 08:40] LABS: Glucose,Whole Blood 99 mg/dL (70-110)
[2025-05-19] MEDS: LACTATED RINGERS 1,000 ML IV SCH (08:43)
[2025-05-19] MEDS: IV FLUID CONTINUATION 1,000 ML IV ONE (08:43)
[2025-05-19] MEDS ORDERED: PROPOFOL 10 MG/ML 20 ML VIAL IV ONE (09:15)
--- NOTE | 2025-05-19 09:36 | P.PCN ---
Date of Procedure: 05/19/25 Procedure(s) Performed: BRIEF HISTORY: Patient is a 74-year-old pleasant pleasant white male scheduled for an elective colonoscopy as a part of evaluation of recent history of colon polyps and poor prep on recent colonoscopy done by Dr. Santana at [facility] in August 2024. PROCEDURE PERFORMED: Colonoscopy with snare polypectomy. PREOPERATIVE DIAGNOSIS: Poor prep on recent colonoscopy in August 2024. IV sedation per Anesthesia. PROCEDURE: After informed consent was obtained, the patient, was brought into the endoscopy unit. IV sedation was administered by Anesthesia under continuous monitoring. Digital rectal examination was normal. Initially the Olympus CF-160 flexible video colonoscope was then inserted in the rectum, gradually advanced into the cecum without any difficulty. Careful examination was performed as the scope was gradually being withdrawn. Ileocecal valve and the appendiceal orifice were visualized and appeared normal. Prep was fair.. Mucosa of the cecum, ascending colon, transverse colon, descending colon, normal. In the proximal sigmoid colon at 40 cm from the anal verge there was a 2 cm broad-based polyp that was removed by piecemeal snare polypectomy and complete polypectomy. Moderate sigmoid diverticulosis seen. Rest of the sigmoid colon, and rectum appeared normal. Retroflexion was performed in the rectum and no lesions were seen. The patient tolerated the procedure well. IMPRESSION: 2 cm broad-based polyp in the proximal sigmoid colon 40 cm from the anal verge status post piecemeal snare polypectomy and complete polypectomy accomplished Moderate left-sided diverticulosis RECOMMENDATIONS: Findings of this examination were discussed with the patient as well as his family. He was advised to follow-up with the biopsy results. If the biopsy reveals adenoma he can have a repeat colonoscopy in 3 years..
[2025-05-19 09:45] VITALS: BP 112/76; PULSE 70; RESP 12
== END 2025-05-19 10:23 ==
LOC: ORWHC2ENDO 07:57
PROVIDERS: ATTEND Internal Medicine Gastroenterology
DX: Z12.11 Encounter for screening for malignant neoplasm of colon (principal); Z86.0100 Personal history of colon polyps, unspecified; D12.5 Benign neoplasm of sigmoid colon; K57.30 Diverticulosis of large intestine without perforation or abscess without bleeding
CPT/HCPCS: 45385; J2704; 88305